=== PATIENT | male | born 1950 | race Caucasian/White ===

== ENCOUNTER → 2016-07-26 | Outpatient (CLI) | payer OTHER ==
[~2016-07-26] MED LIST: ASPI81TA25 PO; COEN1CAP40 PO; CRG25 PO; DIPH1CAP34 PO; FELO10TA PO; FERR1TAB13 PO; FERR324T PO; GABA-113 PO; HYDR25TA4 PO; INSDGI SC; LISI40TA PO; LPT/40 PO; NVLGI SC; OMEP20TA PO; OXYC-57 PO; ULT/50 PO
--- NOTE | 2016-07-26 10:15 | DIAGNOSTIC IMAGING REPORT ---
LUMBAR SPINE MRI WITH AND WITHOUT CONTRAST HISTORY: MRI lumbar spine LUMBAR SPINE PAIN TECHNIQUE: Multiplanar multisequence MRI of the lumbar spine was performed both before and after the intravenous administration of contrast. COMPARISON: None. FINDINGS: For the purpose of the report the L5-S1 disc space will be located on axial image 27 of 30. Moderate degenerative intervertebral disc change throughout the entire lumbar region. Mild reactive edematous change of the vertebral endplates on a degenerative basis. Posterior extradural defects from L3 through S1 based on the sagittal images. No abnormal postcontrast sagittal enhancing focus. L1-L2: No significant central canal or neural foraminal narrowing. L2-L3: No significant central canal or neural foraminal narrowing. L3-L4: Moderate broad-based disc herniation. Moderate impact anterior thecal sac. Moderate multifactorial narrowing of the spinal canal. Mild narrowing of the neuroforamina bilaterally. L4-L5: Broad-based disc herniation. Moderate multifactorial narrowing of the spinal canal. Mild narrowing of the neuroforamina bilaterally. L5-S1: Prior posterior left hemilaminotomy.. Left posterior extradural defect significant components of which show evidence for postcontrast enhancement. This consistent with that of postoperative scarring. Mild narrowing neuroforamina bilaterally. IMPRESSION: 1. Postoperative changes L5-S1 consistent with a prior left hemilaminotomy. 2. Postoperative scar occupying the left lateral recess as well as anterior to the left thecal sac 3. Multifactorial spinal stenosis L3-L4 and to lesser extent L4-L5. Broad-based disc herniations are noted at both levels. 4. Moderate degenerative intervertebral disc change L3-S1 Electronically signed by: Dimas Ross M.D. 07/26/2016 10:14 AM Dictated Date/Time: 07/26/2016 10:08 AM
== END | disposition home or self-care (01) ==
LOC: C.MRI 08:15
PROVIDERS: ATTEND Orthopaedic Surgery Orthopaedic Surgery of the Spine
DX: M54.5 Low back pain (principal); Z98.890 Other specified postprocedural states; M51.37 Other intervertebral disc degeneration, lumbosacral region

== ENCOUNTER 2016-08-10 05:29 | Inpatient (IN) | payer OTHER ==
[2016-07-26 10:16] VITALS: BMI 39.0
--- NOTE | 2016-07-26 11:08 | PAT Medication Instructions ---
Service Date Jul 26, 2016. Current Home Medication List Aspirin (Aspir-Low), 81 MG PO QAM Atorvastatin (Lipitor), 40 MG PO QPM Carvedilol (Carvedilol), 1 TAB PO BID Coenzyme Q10 (Ubidecarenone) (Co Q-10), 400 MG PO QAM Felodipine (Plendil Er), 10 MG PO QAM Ferrous Sulfate (Kp Ferrous Sulfate), 1 TAB PO QAM Gabapentin (Neurontin), 3 TAB PO HS Hydrochlorothiazide (Hctz), 25 MG PO QAM Insulin Aspart (Novolog), UNITS SC TID Insulin Glargine (Lantus), 60 UNITS SC HS Lisinopril (Zestril), 40 MG PO QPM Omeprazole (Omeprazole), 20 MG PO QPM Tramadol Hcl (Ultram), 50-100 MG PO Q6H PRN Medication Instructions For Your Scheduled Surgery - Check with surgeon for instructions: Aspirin (Aspir-Low), 81 MG PO QAM - Hold the following medications 2 weeks prior to surgery: Coenzyme Q10 (Ubidecarenone) (Co Q-10), 400 MG PO QAM - Hold the following medications the morning of surgery: Insulin Aspart (Novolog), UNITS SC TID Hydrochlorothiazide (Hctz), 25 MG PO QAM Ferrous Sulfate (Kp Ferrous Sulfate), 1 TAB PO QAM - Take the following medications the morning of surgery with a sip of water: Felodipine (Plendil Er), 10 MG PO QAM Carvedilol (Carvedilol), 1 TAB PO BID Tramadol Hcl (Ultram), 50-100 MG PO Q6H PRN (check with surgeon for instructions ) - Hold the following medications as scheduled the night before surgery: Lisinopril (Zestril), 40 MG PO QPM - Take the following medications as scheduled the night before surgery: Omeprazole (Omeprazole), 20 MG PO QPM Insulin Glargine (Lantus), 60 UNITS SC HS Insulin Aspart (Novolog), UNITS SC TID Gabapentin (Neurontin), 3 TAB PO HS Carvedilol (Carvedilol), 1 TAB PO BID Atorvastatin (Lipitor), 40 MG PO QPM Tramadol Hcl (Ultram), 50-100 MG PO Q6H PRN If you have any questions please call us at [phone] (Latesha White PA-C) or [phone] or [phone]
[2016-07-26 11:48] LABS: BASO % 0.2 %; BASO ABS # 0.01 K/uL (0-0.2); COMPLETE YES; EOS % 1.7 %; IG% 0.2 %; LYMPH % 16.5 %; MEAN CELL VOLUME 88.1 fL (80-100); MEAN CORPUSCULAR HEMOGLOBIN 30.2 pg (25-34); MEAN CORPUSCULAR HGB CONC 34.3 g/dl (32-36); MEAN PLATELET VOLUME 11.3 fL (7.4-10.4); MONO % 6.2 %; NEUT % 75.2 %; PLATELET COUNT 180 K/uL (130-400); WHITE BLOOD COUNT 6.65 K/uL (4.8-10.8)
[2016-07-26 12:01] LABS: URINE APPEARANCE CLEAR (CLEAR); URINE BILIRUBIN NEG (NEG); URINE COLOR YELLOW; URINE NITRITE NEG (NEG); URINE SPECIFIC GRAVITY 1.011 (1.000-1.030); UROBILINOGEN NEG (NEG)
[2016-07-26 12:06] LABS: BUN/CREATININE RATIO 22.3 (10-20); CALCIUM 9.4 mg/dl (8.5-10.1); POTASSIUM 4.1 mmol/L (3.5-5.1)
[2016-07-26 12:17] LABS: MANUAL MICROSCOPIC REQUIRED? NO; REVIEW REQ? NO
--- NOTE | 2016-07-26 12:36 | DIAGNOSTIC IMAGING REPORT ---
TWO VIEW CHEST CLINICAL HISTORY: Preoperative examination. FINDINGS: PA and lateral chest radiographs are compared to study dated 12/09/2012. The cardiomediastinal silhouette is unremarkable. Chronic interstitial thickening is unchanged. The lungs and pleural spaces are clear. There is no pneumothorax. The bony thorax appears intact. Fusion hardware is noted in the lower cervical spine. IMPRESSION: No active disease in the chest. Electronically signed by: Brandyn Romero M.D. 07/26/2016 12:35 PM Dictated Date/Time: 07/26/2016 12:34 PM
[~2016-08-10] VITALS: Ht 172.7 cm; Wt 117.9 kg
[2016-08-10] VITALS (9 sets, daily range): BP systolic 134–193; BP diastolic 70–90; PULSE 67–87; TEMP 36.3–36.7; O2SAT 90–98; Ht 172.7 cm; Wt 117.9 kg
[~2016-08-10 05:29] MED LIST changes: -DIPH1CAP34 PO; -FERR324T PO; -OXYC-57 PO
[2016-08-10] MEDS ORDERED: PREGABALIN 75 MG CAP PO SCH (06:00)
[2016-08-10] MEDS ORDERED: CEFAZOLIN 2000 MG/60 ML D5W IV SCH (06:00)
[2016-08-10] MEDS ORDERED: LACTATED RINGER'S 1000ML 1,000 ML IV SCH (06:00)
[2016-08-10] MEDS ORDERED: CeleBREX 200 MG CAP PO SCH (06:00)
[2016-08-10] MEDS ORDERED: THROMBIN 5000 UNITS KIT ONE (06:57)
[2016-08-10] MEDS ORDERED: THROMBIN FOR SOLN 20000 UNIT KIT ONE ×2 (06:57→07:06)
[2016-08-10] MEDS ORDERED: BUPIVACAINE/EPINEPHRINE 0.5% MPF 1:200,000 30 ML VIAL ONE (06:57)
[2016-08-10] MEDS ORDERED: HEPARIN SOD (PORCINE) 1000 UNIT/ML 10 ML VIAL ONE ×2 (06:57→07:07)
[2016-08-10] MEDS ORDERED: BACITRACIN 50000 UNIT VIAL ONE (06:57)
[2016-08-10] MEDS ORDERED: LARYING-O-JET KIT (LTA) EXT ONE ×2 (06:58)
[2016-08-10] MEDS ORDERED: PROPOFOL IV EMULSION 10 MG/ML 20 ML VIAL IV ONE (06:58)
[2016-08-10] MEDS ORDERED: ONDANSETRON INJ 2 MG/ML 2 ML VIAL ONE (06:58)
[2016-08-10] MEDS ORDERED: DEXAMETHASONE SOD INJ 4 MG/ML VIAL ONE (06:58)
[2016-08-10] MEDS ORDERED: LIDOCAINE HCL 2% 2 ML VIAL (20MG/ML) ONE (06:58)
[2016-08-10] MEDS ORDERED: MIDAZOLAM HCL 1 MG/ML 2ML VIAL ONE (06:59)
[2016-08-10] MEDS ORDERED: FENTANYL CITRATE INJ 50 MCG/1 ML 2 ML VIAL ONE (06:59)
--- NOTE | 2016-08-10 07:14 | History and Physical ---
History & Physical Date Aug 10, 2016. Chief Complaint LBP and bilateral leg pain History of Present Illness The patient is a 66 year old male with complaints of above due to spinal stenosis and DDD in lumbar spine. He has had prior lumbar decompressions with limited relief in past. No numbness, no weakness. failed to have lasting relief with conservative treatment. MRI shows advanced disc collapse with modic changes L3-S1 and spinal stenosis/facet djd L3-S1. Past Medical/Surgical History Medical Problems: (1) HYPERLIPIDEMIA NEC/NOS (2) HYPERTENSION NOS 3, back pain 4, diabetes 5, hiatal hernia Additional History Hepatic Disease: No Endocrine Disorder: No Kidney Disease: No Hypertension: Yes Heart Disease: No Bleeding Tendencies: No Infectious Diseases: No Allergies Coded Allergies: No Known Allergies (Verified , 08/10/16) Home Medications Scheduled Aspirin (Aspir-Low), 81 MG PO QAM Atorvastatin (Lipitor), 40 MG PO QPM Carvedilol (Carvedilol), 1 TAB PO BID Coenzyme Q10 (Ubidecarenone) (Co Q-10), 400 MG PO QAM Felodipine (Plendil Er), 10 MG PO QAM Ferrous Sulfate (Kp Ferrous Sulfate), 1 TAB PO QAM Gabapentin (Neurontin), 3 TAB PO HS Hydrochlorothiazide (Hctz), 25 MG PO QAM Insulin Aspart (Novolog), UNITS SC TID Insulin Glargine (Lantus), 60 UNITS SC HS Lisinopril (Zestril), 40 MG PO QPM Omeprazole (Omeprazole), 20 MG PO QPM Scheduled PRN Tramadol Hcl (Ultram), 50-100 MG PO Q6H PRN Physical Examination Skin: warm/dry Eyes: normal inspection ENT: normal ENT inspection Head: normocephalic, atraumatic Neck: supple, trachea midline Respiratory/Chest: lungs clear, no respiratory distress Cardiovascular: regular rate, rhythm Back: normal inspection Extremities: normal inspection, normal range of motion Neurologic/Psych: no motor/sensory deficits, alert, normal reflexes, oriented x 3 Diagnosis L3-S1 stenosis/DDD Plan of Treatment L3-S1 decompression/PSF
[2016-08-10] MEDS ORDERED: HYDROmorphone INJ 2 MG/ML SYR/VIAL ONE (07:40)
[2016-08-10] MEDS ORDERED: ROCURONIUM BROMIDE 10 MG/ML 5 ML VIAL ONE (07:52)
[2016-08-10] MEDS ORDERED: ATROPINE SULFATE 0.1 MG/ML 5ML SYR IV PRN (08:00)
[2016-08-10] MEDS ORDERED: ONDANSETRON INJ 2 MG/ML 2 ML VIAL IV PRN ×2 (08:00→10:00)
[2016-08-10] MEDS ORDERED: HYDROmorphone INJ 1 MG/ML SYR IV PRN (08:00)
[2016-08-10] MEDS ORDERED: EpHEDrine SULFATE INJ 50 MG/ML AMP IV PRN (08:00)
[2016-08-10] MEDS ORDERED: PROMETHAZINE HCL INJ 6.25 MG in SODIUM CHLORIDE 0.9% 50ML 50 ML IV PRN (08:00)
[2016-08-10] MEDS ORDERED: EpHEDrine SULFATE 50MG/5ML SYR ONE (08:10)
[2016-08-10] MEDS ORDERED: KETAMINE HCL INJ 50 MG/ML 10 ML VIAL ONE (08:44)
[2016-08-10] MEDS ORDERED: NEOSTIGMINE METHYLSULFATE 1 MG/ML 10ML VIAL ONE (09:30)
[2016-08-10] MEDS ORDERED: GLYCOPYRROLATE INJ 0.2 MG/ML VIAL ONE (09:30)
[2016-08-10] MEDS ORDERED: FLOSEAL HEMOSTATIC MATRIX 10ML TOP ONE (09:36)
[2016-08-10] MEDS ORDERED: OXYC-57 PO (09:36)
--- NOTE | 2016-08-10 09:38 | Discharge Instructions ---
Discharge Instructions Admission Reason for Admission: Lumbar Spinal Stenosis Discharge Discharge Diagnosis / Problem: Lumbar Stenosis Discharge Goals Goal(s): Decrease discomfort, Improve function, Increase independence Activity Recommendations Activity Limitations: as noted below Lifting Limitations: no more than 5 pounds Exercise/Sports Limitations: none May Resume Sexual Activity: after follow-up appointment Shower/Bathe: may shower/bathe in 3 days . Instructions / Follow-Up Instructions / Follow-Up ACTIVITY RECOMMENDATIONS: SELF CARE INSTRUCTIONS AFTER THORACIC/LUMBAR FUSIONS 1. You may walk to your tolerance. It is good exercise for your legs and back. Expect some back and intermittent leg aches and pains. 2. You may perform "counter-top" level activities (make a sandwich, rory with a project, etc.). 3. No bending or lifting of more than 10 pounds or back twisting of any nature (roll like a log when turning in bed). 4. You may ride in a car for 20-30 minutes at a time. No driving until after your first visit with your doctor. 5. Frequent changes of position and restricting sitting to 30 minutes at a time will help limit the amount of back spasms and stiffness you may experience. 6. You may discontinue the use of ambulatory aids (cane, crutches, etc.) once your strength and confidence allow. 7. You may metalizing machine operator automatic the shower and let water strike your incision when you arrive home at least once daily. Do not take a tub bath, sit in a hot tub or go into a swimming pool until after your first recheck in the office. SPECIAL CARE INSTRUCTIONS: VERY IMPORTANT TO READ AND REVIEW A. Your surgical incision has been closed with a cosmetic suture under the skin that will dissolve in about 6 weeks. In 14 days, you can use a pair of clean scissors and cut the suture that is left outside of the skin at the ends of your incision. 1. The small skin tapes can be removed 7 days after surgery if they have not fallen off by that point. 2. You may keep the wound open to air as much as possible to promote healing after post-op day number 5 unless told otherwise by your doctor. 3. If you think the wound looks like it is becoming infected (redness or worsening drainage) and/or you are experiencing fever, chill or worsening back pain and muscle spasms, contact the office so that we may evaluate you as soon as possible. B. Complications are uncommon, but please contact us if you have any signs or symptoms of: 1. wound infection (fever higher than 102.5 degrees F, redness, separation of wound, drainage, or increasing pain from the incision) 2. blood clots in legs (pain, swelling, redness and warmth in legs) 3. urinary tract infection (fever higher than 102.5 degrees F, burning upon urination or increased frequency of urination) 4. nerve problems (inability to walk on your toes or heels, numbness, loss of bowel or bladder control) 5. any other symptoms that concern you C. Please call the office at if you have any concerns or questions about your operation or recovery. D. No smoking! Smoking drastically decreases the chance of a solid fusion. E. Do not take any anti-inflammatory medications (Indocin, Advil, Motrin, Aspirin, Naprosyn, etc.) as these may inhibit the chance of a solid fusion. Tylenol is okay to take for pain. MANAGING PAIN AFTER SPINAL SURGERY 1. Narcotic medication is intended for short-term use and will be provided for surgical pain. Surgical pain usually lasts for a period of 4-6 weeks. Narcotic medication includes Percocet, Vicodin, Darvocet, Tylenol #3 or Lortab. 2. Longer-term pain is more appropriately treated with non-narcotic medication such as Tylenol ES. 3. Muscle spasm is not appropriately treated with narcotics. Muscle relaxers such as Soma, Flexeril or Skelaxin can be used along with Tylenol ES. 4. Remember that we all live with some "aches and pains". This is not unusual or uncommon after an injury or as we get older. a. Back pain is expected and may include muscle spasms for 4 to 6 weeks after surgery. The pain should gradually improve. If the pain worsens for no apparent reason, please contact the office. b. Intermittent leg pain may also be experienced and should not be concerned about unless it worsens for no apparent reason. If so, please contact the office. 5. We will provide appropriate medication within the normal guidelines of their prescribed use. We will also be very cautious and aware of potential abuse and extended duration of patients' medication needs. a. Pain medications are for your comfort and to assist with sleep and rest so that the tissue can heal. They are not provided in order to return to normal activity and should not be used through the day. To do so or worsening pain at night can result from ongoing tissue damage and development of tolerance to the prescribed medicine. 6. Please allow 2-3 days to process refills. Prescriptions will not be mailed but must be picked up at the office. FOLLOW UP VISIT: Keep your scheduled follow-up appointment. Any questions, please call the office at . Current Hospital Diet Patient's current hospital diet: Discharge Diet Recommended Diet: Regular Diet Procedures Procedures Performed: L3-S1 Decompression and Instrumented Fusion; Interbody Fusion at L4-L5; with Arteriocyte Pending Studies Studies pending at discharge: no Medical Emergencies . Who to Call and When: Medical Emergencies: If at any time you feel your situation is an emergency, please call 911 immediately. . Non-Emergent Contact Non-Emergency issues call your: Surgeon Call Non-Emergent contact if: temperature is above 101, your pain is not controlled, your pain is worsening, your pain is unusual for you, your pain is concerning you, wound has increased drainage, wound has increased redness, wound has increased pain, you have any medication questions . "Provider Documentation" section prepared by Christos Kimball. VTE Core Measure Inpt VTE Proph given/why not?: Anand Smith
--- NOTE | 2016-08-10 09:41 | DIAGNOSTIC IMAGING REPORT ---
LUMBAR SPINE, INTRAOPERATIVE FLUOROSCOPY HISTORY: L3-S1 decompression and fusion. FLUOROSCOPY TIME: 9 seconds. FINDINGS: Intraoperative fluoroscopy was provided for the lumbar spine. 2 fluoroscopic spot images were obtained. Posterior decompression fusion from L3 through S1 with pedicle screws and rods. The hardware appears intact. IMPRESSION: Fluoroscopy provided for a L3-S1 posterior decompression and fusion. Electronically signed by: Todd Galloway M.D. 08/10/2016 9:40 AM Dictated Date/Time: 08/10/2016 9:39 AM
--- NOTE | 2016-08-10 09:47 | [facility] Post Operative Brief Note ---
Immediate Operative Summary Operative Date Aug 10, 2016. Pre-Operative Diagnosis L3-S1 Stenosis, Degenerative Joint Disease Post-Operative Diagnosis L3-S1 Stenosis, Degenerative Joint Disease Procedure(s) Performed L3-S1 Decompression and Instrumented Fusion; Interbody Fusion at L4-L5; with Arteriocyte Surgeon Dr. Loeksh Keene Fare Register Repairer Surgeon(s) Christos Kimball PA-C Estimated Blood Loss 300mL Findings dict Specimens None per surgeon
[2016-08-10] MEDS ORDERED: HYDROmorphone HCL 0.5MG/ML 50 ML CASSETTE ONE (09:53)
[2016-08-10] MEDS ORDERED: BISACODYL 10 MG SUPP PR PRN (10:00)
[2016-08-10] MEDS ORDERED: HYDROmorphone INJ 0.5 MG/0.5 ML SYR IV PRN (10:00)
[2016-08-10] MEDS ORDERED: LORAZEPAM 0.5 MG TAB PO PRN (10:00)
[2016-08-10] MEDS ORDERED: PROMETHAZINE HCL INJ 12.5 MG in SODIUM CHLORIDE 0.9% 50ML 50 ML IV PRN (10:00)
[2016-08-10] MEDS ORDERED: LORAZEPAM INJ 0.5 MG in SYRINGE 0 ML IV PRN (10:00)
[2016-08-10] MEDS ORDERED: ACETAMINOPHEN IV 100 ML IV PRN (10:00)
[2016-08-10] MEDS ORDERED: METOCLOPRAMIDE HCL INJ 5 MG/ML 2 ML VIAL IV PRN (10:00)
[2016-08-10] MEDS ORDERED: NALOXONE HCL 0.4 MG/1 ML VIAL/CARP IV PRN ×2 (10:00)
[2016-08-10] MEDS ORDERED: ALUMINUM/MAGNESIUM SUSP 30 ML UDC PO PRN (10:00)
[2016-08-10] MEDS ORDERED: ACETAMINOPHEN 500 MG TAB PO PRN (10:00)
[2016-08-10] MEDS ORDERED: hydrOXYzine HCL 25 MG TAB PO PRN (10:00)
[2016-08-10] MEDS ORDERED: FAMOTIDINE 20 MG TAB PO PRN (10:00)
[2016-08-10] MEDS ORDERED: SOD PHOSPHATE/SOD BIPHOSPHATE ENEMA 132 ML BTL PR PRN (10:00)
[2016-08-10] MEDS: FENTANYL CITRATE INJ 50 MCG/1 ML 2 ML VIAL IV PRN ×4 (10:10→10:25)
--- NOTE | 2016-08-10 11:01 | Anesthesiology Progress Note ---
Anesthesia Post Op Note Date & Time Aug 10, 2016 at 11:01 Vital Signs Pain Intensity: 3 Vital Signs Past 12 Hours Date Time Temp Pulse Resp B/P Pulse Ox O2 Delivery O2 Flow Rate FiO2 08/10/16 10:45 68 12 178/73 98 Nasal Cannula 4 08/10/16 10:35 64 16 161/72 97 Nasal Cannula 4 08/10/16 10:25 62 16 173/77 97 Nasal Cannula 4 08/10/16 10:15 77 16 174/73 98 Nasal Cannula 4 08/10/16 10:05 74 16 180/76 100 Mask 10 08/10/16 09:55 76 16 186/65 100 Mask 10 08/10/16 09:47 36.4 83 16 175/80 99 Mask 10 08/10/16 06:08 36.7 68 18 177/85 98 Room Air Notes Mental Status: alert / awake / arousable, participated in evaluation Pt Amnestic to Procedure: Yes Nausea / Vomiting: adequately controlled Pain: adequately controlled Airway Patency, RR, SpO2: stable & adequate BP & HR: stable & adequate Hydration State: stable & adequate Anesthetic Complications: no major complications apparent
[2016-08-10] MEDS: HYDROmorphone HCL 0.5MG/ML 50 ML CASSETTE IV PRN ×3 (12:14→23:04)
[2016-08-10] MEDS: SODIUM CHLORIDE 0.9% 1000ML 1,000 ML IV SCH ×3 (12:55→23:10)
[2016-08-10] MEDS ORDERED: CARVEDILOL 25 MG TAB PO ONE (13:00)
[2016-08-10] MEDS ORDERED: HydrALAZINE HCL 20 MG/ML VIAL IV. PRN (13:00)
[2016-08-10] MEDS ORDERED: FELODIPINE 5 MG TABCR PO ONE (13:00)
--- NOTE | 2016-08-10 13:29 | Medical Consult ---
Consultation Date of Consultation: Aug 10, 2016. Attending Physician: Lokesh Keene M.D. Reason for Consultation: Postop Medical Management History of Present Illness Patient seen and examined. 66 year old male with PMHx of IDDM, HTN, HLD, RLS, and CKD stage 2, is seen in consultation for postop medical management following L3-S1 decompression fusion by Dr. Keene. Patient reports he feels groggy and nauseated. He states pain is well controlled. He denies fevers, chills, numbness/tingling, chest pain, SOB, vomiting, diarrhea, dysuria, calf pain and edema. He denies history of VTE. Last BM this morning. He denies eating postop. Past Medical/Surgical History Medical Problems: (1) Atrial premature beats Status: Chronic (2) CKD (chronic kidney disease), stage II Status: Chronic (3) GERD (gastroesophageal reflux disease) Status: Chronic (4) HYPERLIPIDEMIA NEC/NOS Status: Chronic (5) HYPERTENSION NOS Status: Chronic (6) IDDM (insulin dependent diabetes mellitus) Status: Chronic (7) Obesity Status: Chronic (8) RLS (restless legs syndrome) Status: Chronic Surgical Problems: (1) H/O neck surgery Status: Chronic (2) H/O shoulder surgery Status: Chronic (3) History of appendectomy Status: Chronic (4) History of back surgery Status: Chronic (5) History of intestinal surgery Status: Chronic Family History Diabetes mellitus FH: cancer FH: heart disease Hypertension Stroke Social History Smoking Status: Former Smoker Alcohol Use: none Marital Status: Housing Status: lives with family Occupation Status: retired Allergies Coded Allergies: No Known Allergies (Verified , 08/10/16) Current Inpatient Medications Current Inpatient Medications Medications (Trade) Dose Ordered Sig/Zarina Route Start Time Stop Time Status Last Admin Dose Admin Cefazolin Sodium 60 ml @ 100 mls/hr PREOP IV 08/10/16 06:00 08/10/16 18:00 Lactated Ringer's (Lr 1000ml) 1,000 ml @ 15 mls/hr Q24H IV 08/10/16 06:00 08/10/16 18:00 08/10/16 06:25 15 MLS/HR Celecoxib (CeleBREX CAP) 200 mg PREOP PO 08/10/16 06:00 08/10/16 18:00 08/10/16 06:23 200 MG Pregabalin (Lyrica Cap) 75 mg PREOP PO 08/10/16 06:00 08/10/16 18:00 08/10/16 06:23 75 MG Aspirin (Ecotrin Tab) 81 mg QAM PO 08/11/16 09:00 09/10/16 08:59 Atorvastatin Calcium (Lipitor Tab) 40 mg QPM PO 08/10/16 21:00 09/09/16 20:59 Carvedilol (Coreg Tab) 25 mg BID PO 08/10/16 21:00 09/09/16 20:59 Felodipine (Plendil Tabcr) 10 mg QAM PO 08/11/16 09:00 09/10/16 08:59 Gabapentin (Neurontin Cap) 900 mg HS PO 08/10/16 21:00 09/09/16 20:59 Hydrochlorothiazide (Hydrochlorothiazide Tab) 25 mg QAM PO 08/11/16 09:00 09/10/16 08:59 Lisinopril (Zestril Tab) 40 mg QPM PO 08/10/16 21:00 09/09/16 20:59 Pantoprazole Sodium 40 mg 40 mg DAILYBD PO 08/10/16 17:15 09/09/16 17:14 Promethazine HCl/ Sodium Chloride (Phenergan Inj/ Nss 50ml) 50.5 ml @ 202 mls/hr Q6H PRN IV 08/10/16 10:00 09/09/16 09:59 Ondansetron HCl (Zofran Inj) 4 mg Q6H PRN IV 08/10/16 10:00 09/09/16 09:59 Metoclopramide HCl (Reglan Inj) 10 mg Q6H PRN IV 08/10/16 10:00 09/09/16 09:59 Lorazepam 0.5 mg 0.5 mg Q8H PRN PO 08/10/16 10:00 09/09/16 09:59 Lorazepam 0.5 mg/ Syringe 0.25 ml @ 1 mls/min Q8H PRN IV 08/10/16 10:00 09/09/16 09:59 Sodium Chloride (Nss 1000ml) 1,000 ml @ 75 mls/hr [id number] IV 08/10/16 09:47 09/09/16 09:46 08/10/16 13:12 75 MLS/HR Polyethylene (Miralax Powder Packet) 17 gm Q6 PO 08/12/16 06:00 09/11/16 05:59 Bisacodyl (Dulcolax Supp) 10 mg DAILY PRN MN 08/10/16 10:00 09/09/16 09:59 Magnesium Hydroxide (Milk Of Magnesia Susp) 30 ml DAILY PRN PO 08/10/16 10:00 09/09/16 09:59 Hydromorphone HCl (Dilaudid Inj) 0.5-1mg prn moder... Q3H PRN IV 08/10/16 10:00 08/24/16 09:59 UNV Oxycodone HCl 5-10mg prn moderate to sev... Q4H PRN PO 08/11/16 06:00 08/25/16 05:59 UNV Cefazolin Sodium/ Dextrose (Ancef Iv/D5 50ml) 60 ml @ 100 mls/hr Q8H IV 08/10/16 16:00 08/11/16 00:35 Acetaminophen 1000 mg 1,000 mg Q8H PRN PO 08/10/16 10:00 09/09/16 09:59 Acetaminophen (Ofirmev Iv) 100 ml @ 400 mls/hr Q8H PRN IV 08/10/16 10:00 09/09/16 09:59 Naloxone HCl (Narcan Inj) 0.1 mg Q5M PRN IV 08/10/16 10:00 09/09/16 09:59 Senna/Docusate Sodium (Senokot S Tab) 2 tab HS PO 08/10/16 21:00 09/09/16 20:59 Sodium Biphosphate/ Sodium Phosphate (Fleet Enema) 132 ml ONE PRN MN 08/10/16 10:00 09/09/16 09:59 Hydroxyzine HCl (Vistaril Tab) 25 mg Q8H PRN PO 08/10/16 10:00 09/09/16 09:59 Al Hydroxide/Mg Hydroxide (Maalox Susp) 30 ml Q6H PRN PO 08/10/16 10:00 09/09/16 09:59 Famotidine (Pepcid Tab) 20 mg Q12 PRN PO 08/10/16 10:00 09/09/16 09:59 Naloxone HCl (Narcan Inj) 0.1 mg Q5M PRN IV 08/10/16 10:00 09/09/16 09:59 Hydromorphone HCl 25 mg 25 mg PRN PRN IV 08/10/16 10:00 08/24/16 09:59 08/10/16 12:14 25 MG Sodium Chloride (Nss 1000ml) 1,000 ml @ 15 mls/hr Q24H IV 08/10/16 09:47 09/09/16 09:46 Hydralazine HCl (HydrALAZINE INJ) 10 mg Q6 PRN IV. 08/10/16 13:00 09/09/16 12:59 Review of Systems See above for pertinent positives & negatives. A total of 10 systems reviewed and were otherwise negative. Physical Exam Date Time Temp Pulse Resp B/P Pulse Ox O2 Delivery O2 Flow Rate FiO2 08/10/16 12:52 36.3 67 16 185/72 96 Nasal Cannula 4.0 08/10/16 12:20 36.5 71 18 193/71 97 Nasal Cannula 4.0 08/10/16 12:20 Nasal Cannula 4.0 08/10/16 12:20 97 Nasal Cannula 4.0 08/10/16 11:55 36.5 88 16 165/70 99 Nasal Cannula 4 08/10/16 11:45 36.5 65 16 170/85 99 Nasal Cannula 4 08/10/16 11:35 36.5 65 12 168/69 99 Nasal Cannula 4 08/10/16 11:25 36.5 63 12 169/96 99 Nasal Cannula 4 08/10/16 11:15 36.5 81 12 166/97 98 Nasal Cannula 4 08/10/16 11:05 36.5 66 12 171/67 95 Nasal Cannula 4 08/10/16 10:55 68 12 168/89 98 Nasal Cannula 4 08/10/16 10:45 68 12 178/73 98 Nasal Cannula 4 08/10/16 10:35 64 16 161/72 97 Nasal Cannula 4 08/10/16 10:25 62 16 173/77 97 Nasal Cannula 4 08/10/16 10:15 77 16 174/73 98 Nasal Cannula 4 08/10/16 10:05 74 16 180/76 100 Mask 10 2/16/17 09:55 76 16 186/65 100 Mask 10 08/10/16 09:47 36.4 83 16 175/80 99 Mask 10 08/10/16 06:08 36.7 68 18 177/85 98 Room Air General Appearance: + pertinent finding (WD/WN 66 year old male lying in bed in NAD with family at bedside ) Head: normocephalic, atraumatic Eyes: PERRL, EOMI, sclerae normal ENT: hearing grossly normal, pharynx normal Neck: supple, no JVD Respiratory/Chest: chest non-tender, lungs clear, normal breath sounds, no respiratory distress, no accessory muscle use Cardiovascular: regular rate, rhythm, no edema, no gallop, no JVD, normal peripheral pulses, + systolic murmur Abdomen/GI: normal bowel sounds, non tender, soft Back: + pertinent finding (LUZ MARINA with serosaunginous output ) Extremities/Musculoskelatal: no calf tenderness, normal capillary refill, no pedal edema Neurologic/Psych: alert, oriented x 3, + pertinent finding (no motor or sensory deficits noted on gross exam ) Skin: normal color, warm/dry, no rash Lymphatic: no adenopathy Laboratory Results Last 24 Hours Test 08/10/16 05:55 08/10/16 09:47 Bedside Glucose 78 mg/dl 126 mg/dl Assessment & Plan L3-S1 DECOMPRESSION FUSION -POD#[address] Keene -Management as per ortho to include- pain control, bowel regimen, DVT prophylaxis, PT/OT, incentive spirometry, wound care -EBL 300ml -Follow H&H daily for postop anemia, preop was 12.7&37 -CBC, PRP, Mg daily HTN -Running slightly high postop -pain control per ortho -continue Plendil, HCTZ, Coreg, Lisinopril -Hydralazine added prn IDDM -A1c 6.8 -decrease Lantus to 30 Units tonight to avoid hypoglycemia with postop nausea, poor po intake -SSI coverage -BSG AC HS -consistent carb diet HLD -continue Statin RLS -continue gabapentin CKD STAGE 2 -stable -follow PRP -avoid nephrotoxic agents as able GERD -continue PPI DVT PROPHYLAXIS: per ortho CODE STATUS: FULL CODE DISPO per ortho Patient seen in collaboration with Dr. Navarro Thank you for this consultation. We will follow the patient with you during their hospital stay. You can reach a member of the [facility] Hospitalist Team 15/01 via pager @ [phone]. Agree with above Consult note.Briefly 66m s/p back surgery. Was nauseous early but feeling ok now. Using access specialist pump for pain. Denies chest pain or sob. Afebrile.Had dinner. p/e Ge not in distress cvs s1 and s2 heard no murmurs Rs cta b/l no added sounds Abd benign Cushion Former non focal musculoskeletal s/p back surgery ext no edema a/p s/p back surgery management as per ortho HTN home meds iv hydralazine prn DM reduced Lantus today restart home Lantus dose tomorrow iss will monitor
[2016-08-10] MEDS ORDERED: GLUCAGON FOR INJ 1 MG VIAL SQ PRN (13:30)
[2016-08-10] MEDS ORDERED: DEXTROSE 50% 50 ML SYR IV PRN (13:30)
[2016-08-10] MEDS ORDERED: GLUCOSE 10 TABS/TUBE PO PRN (13:30)
[2016-08-10] MEDS ORDERED: GLUCOSE 40% GEL 15 GM TUBE PO PRN (13:30)
--- NOTE | 2016-08-10 15:12 | OPERATIVE REPORT ---
DATE OF OPERATION: 08/10/2016 PREOPERATIVE DIAGNOSES: 1. L3-4, L4-5 and L5-S1 spinal stenosis and disc degeneration. 2. Previous L5-S1 decompression x2. POSTOPERATIVE DIAGNOSES: Same. PROCEDURES: 1. L3 and L4 laminectomies with bilateral L3-4 and L4-5 medial facetectomies. 2. Segmental pedicle screw instrumentation -- bilateral L3, L4, and unilateral screw placement at L5 on the left. Bilateral screw placement at S1. 3. Posterior lateral fusion L3-S1 -- bilateral with Infuse BMP on a collagen sponge, tricalcium phosphate, local bone, bone putty and bone marrow aspirate. 4. Right iliac crest bone marrow aspiration stem cell concentration with Arteriocyte system with application of bone graft gas plant repairer. SURGEON: Dr. Keene. DIRECTOR INDUSTRIAL MUSEUM: Christos Kimball PA-C. Please note he participated in all portions of the procedure and was critical for performance of the procedure, participated in positioning, prepping, draping, retraction and wound closure. ANESTHESIA: General endotracheal anesthesia. COMPLICATIONS: None. ESTIMATED BLOOD LOSS: Per anesthesia record. DESCRIPTION OF PROCEDURE: After identification of the patient and operative level, he was brought to the OR where he underwent induction of general anesthesia. He was then positioned prone on David OR table with all bony prominences well padded. Care was taken to avoid pressure on the periorbital area. Lumbosacral area was sterilely prepped and draped in usual fashion. Antibiotics were administered. Time-out was performed. Level was confirmed and skin incision was infiltrated with Marcaine and epinephrine. I then made a skin incision from spinous process of L2 to the sacrum and exposed the posterior elements at previous surgical site and confirmed level with fluoroscopy and marked the operative levels. The L5-S1 facets were autofused and the disc was autofused on fluoroscopy. I then did L3 and L4 laminectomies with midline decompression and removal of ligamentum flavum and medial facets at L3-4 and L4-5. I completed decompression with Kerrisons and palpated the nerve roots were decompressed from L3-5 bilaterally. I then placed pedicle screws bilaterally at L3, L4, on the left at L5 and bilaterally at S1 with K2M Schleswig pedicle screws. Screws had good purchase. I checked position with fluoroscopy. I then aspirated bone marrow from the right iliac crest via separate stab incision with a Avancar needles concentrated with the bone marrow concentration system. I then applied bone graft gas plant repairer and decorticated transverse process and facets from L3 to the sacrum bilaterally. I applied rods and end caps from L3-S1 bilaterally. Placed and final tightened all placed crosslink. Decortication of the bone was done with a high speed bur. I then packed the lateral gutters with bone graft mixture as above after irrigating with bacitracin solution and bone graft mixed with morcellized local bone, bone putty, bone marrow aspirate and Infuse BMP on a collagen sponge. I then confirmed hemostasis and closed in layered fashion over LUZ MARINA drain. All sponge and needle counts were correct at the end of the case. I attest to the content of the Intraoperative Record and any orders documented therein. Any exceptio ns are noted below.
[2016-08-10] MEDS: CEFAZOLIN IV 2,000 MG in DEXTROSE 5% 50ML 50 ML IV SCH (16:22)
[2016-08-10] MEDS: PANTOprazole SOD 40 MG TAB PO SCH (18:42)
[2016-08-10] MEDS: INSULIN ASPART 100 UNITS/ML 3 ML PEN SC SCH ×2 (18:43→22:00)
[2016-08-10] MEDS ORDERED: INSULIN GLARGINE SOLOSTAR 100 UNITS/ML 3 ML PEN SC SCH (21:00)
[2016-08-10] MEDS: DOCUSATE SODIUM/SENNA 50/8.6MG TAB PO SCH (21:51)
[2016-08-10] MEDS: CARVEDILOL 25 MG TAB PO SCH (21:52)
[2016-08-10] MEDS: ATORVASTATIN 40 MG TAB PO SCH (21:52)
[2016-08-10] MEDS: GABAPENTIN 300 MG CAP PO SCH (21:52)
[2016-08-10] MEDS: LISINOPRIL 40 MG TAB PO SCH (21:52)
[2016-08-10] MEDS: INSULIN GLARGINE SOLOSTAR 100 UNITS/ML 3 ML PEN SC SCH (22:02)
[2016-08-11] VITALS (9 sets, daily range): BP systolic 119–194; BP diastolic 63–71; PULSE 73–93; TEMP 36.7–37.4; O2SAT 90–95
[2016-08-11] MEDS: CEFAZOLIN IV 2,000 MG in DEXTROSE 5% 50ML 50 ML IV SCH (00:02)
[2016-08-11] MEDS: MAGNESIUM HYDROXIDE SUSP 30 ML UDC PO PRN ×2 (04:41→15:40)
[2016-08-11] MEDS: HYDROmorphone HCL 0.5MG/ML 50 ML CASSETTE IV PRN ×2 (07:14→23:11)
[2016-08-11 08:11] LABS: BASO % 0.1 %; BASO ABS # 0.01 K/uL (0-0.2); COMPLETE YES; EOS % 0.2 %; HEMATOCRIT 29.8 % (42-52); IG% 0.2 %; LYMPH % 7.9 %; LYMPH ABS # 0.84 K/uL (1.2-3.4); MEAN CELL VOLUME 89.5 fL (80-100); MEAN CORPUSCULAR HEMOGLOBIN 29.7 pg (25-34); MEAN CORPUSCULAR HGB CONC 33.2 g/dl (32-36); MEAN PLATELET VOLUME 10.7 fL (7.4-10.4); NEUT % 81.6 %; PLATELET COUNT 140 K/uL (130-400); RED BLOOD COUNT 3.33 M/uL (4.7-6.1); WHITE BLOOD COUNT 10.63 K/uL (4.8-10.8)
--- NOTE | 2016-08-11 08:31 | Anesthesiology Progress Note ---
Anesthesia Post Op Note Date & Time Aug 11, 2016 at 08:30 Vital Signs Pain Intensity: 0.0 Vital Signs Past 12 Hours Date Time Temp Pulse Resp B/P Pulse Ox O2 Delivery O2 Flow Rate FiO2 08/11/16 06:52 37.0 77 17 154/65 92 Room Air 08/11/16 04:00 36.7 73 18 119/63 95 Room Air 08/10/16 23:55 Room Air 08/10/16 23:50 36.6 80 18 134/70 92 Room Air Notes Mental Status: alert / awake / arousable, participated in evaluation Pt Amnestic to Procedure: Yes Nausea / Vomiting: adequately controlled Pain: adequately controlled Airway Patency, RR, SpO2: stable & adequate BP & HR: stable & adequate Hydration State: stable & adequate Anesthetic Complications: no major complications apparent
[2016-08-11 08:49] LABS: BUN/CREATININE RATIO 25.1 (10-20); CALCIUM 8.2 mg/dl (8.5-10.1); CREATININE 1.3 mg/dl (0.60-1.40); POTASSIUM 4.7 mmol/L (3.5-5.1)
[2016-08-11] MEDS: ASPIRIN 81 MG ECTAB PO SCH (09:05)
[2016-08-11] MEDS: CARVEDILOL 25 MG TAB PO SCH ×2 (09:06→20:15)
[2016-08-11] MEDS: FELODIPINE 5 MG TABCR PO SCH (09:06)
[2016-08-11] MEDS: HYDROCHLOROTHIAZIDE 25 MG TAB PO SCH (09:06)
[2016-08-11] MEDS: SODIUM CHLORIDE 0.9% 1000ML 1,000 ML IV SCH ×2 (09:07→12:37)
[2016-08-11] MEDS: INSULIN ASPART 100 UNITS/ML 3 ML PEN SC SCH ×4 (09:16→21:07)
--- NOTE | 2016-08-11 15:27 | Progress Note ---
Internal Med Progress Note Date of Service: Aug 11, 2016. Provider Documentation: SUBJECTIVE: Patient is seen and examined at bedside. Denies any chest pain, SOB, dizziness , headache. States that he had not had a BM today. OBJECTIVE: Vital Signs-as noted below General Appearance:Obese, No distress Head: normocephalic, atraumatic Eyes: PERRL, EOMI, sclerae normal ENT: hearing grossly normal, pharynx normal Neck: supple, no JVD Respiratory/Chest: normal breath sounds, CTA, no accessory muscle use Cardiovascular: S1, S2, + systolic murmur Abdomen/GI: normal bowel sounds, non tender, soft Back: + LUZ MARINA and surgical site in bandage Extremities/Musculoskelatal: no calf tenderness, normal capillary refill, no pedal edema Neurologic/Psych: alert, oriented x 3, no motor or sensory deficits Skin: normal color, warm/dry, no rash Lab data as noted below. ASSESSMENT & PLAN: S/P L3-S1 DECOMPRESSION FUSION POD # [address] Keene Hb 9.9 today: Partly likely hemodilutional Monitor H&H Bowel regimen to prevent constipation HTN continue Plendil, HCTZ, Coreg, Lisinopril Hydralazine PRN DC IVF Monitor for now IDDM Last A1c 6.8 -Continue SSI coverage, Lantus BSG AC HS Diabetic diet HLD continue Statin RLS continue gabapentin CKD II stable Monitor GERD continue PPI DVT PX: per ortho CODE STATUS FULL CODE Vital Signs: Date Time Temp Pulse Resp B/P Pulse Ox O2 Delivery O2 Flow Rate FiO2 08/11/16 11:03 37.1 81 17 167/66 95 Room Air 08/11/16 06:52 37.0 77 17 154/65 92 Room Air 08/11/16 04:00 36.7 73 18 119/63 95 Room Air 08/10/16 23:55 Room Air 08/10/16 23:50 36.6 80 18 134/70 92 Room Air 08/10/16 19:11 36.6 87 18 164/73 97 Nasal Cannula 3.0 Lab Results: Results Past 24 Hours Test 08/10/16 16:38 08/10/16 20:39 08/11/16 08:00 08/11/16 08:02 Range/Units Bedside Glucose 176 240 208 70-99 mg/dl White Blood Count 10.63 4.8-10.8 K/uL Red Blood Count 3.33 4.7-6.1 M/uL Hemoglobin 9.9 14.0-18.0 g/dL Hematocrit 29.8 42-52 % Mean Corpuscular Volume 89.5 80-100 fL Mean Corpuscular Hemoglobin 29.7 25-34 pg Mean Corpuscular Hemoglobin Concent 33.2 32-36 g/dl Platelet Count 140 130-400 K/uL Mean Platelet Volume 10.7 7.4-10.4 fL Neutrophils (%) (Auto) 81.6 % Lymphocytes (%) (Auto) 7.9 % Monocytes (%) (Auto) 10.0 % Eosinophils (%) (Auto) 0.2 % Basophils (%) (Auto) 0.1 % Neutrophils # (Auto) 8.68 1.4-6.5 K/uL Lymphocytes # (Auto) 0.84 1.2-3.4 K/uL Monocytes # (Auto) 1.06 0.11-0.59 K/uL Eosinophils # (Auto) 0.02 0-0.5 K/uL Basophils # (Auto) 0.01 0-0.2 K/uL RDW Standard Deviation 46.7 36.4-46.3 fL RDW Coefficient of Variation 14.2 11.5-14.5 % Immature Granulocyte % (Auto) 0.2 % Immature Granulocyte # (Auto) 0.02 0.00-0.02 K/uL Sodium Level 141 136-145 mmol/L Potassium Level 4.7 3.5-5.1 mmol/L Chloride Level 105 98-107 mmol/L Carbon Dioxide Level 27 21-32 mmol/L Anion Gap 9.0 3-11 mmol/L Blood Urea Nitrogen 33 7-18 mg/dl Creatinine 1.30 0.60-1.40 mg/dl Est Creatinine Clear Calc Drug Dose 69.7 ml/min Estimated GFR () 65.9 Estimated GFR (Non- 56.9 BUN/Creatinine Ratio 25.1 10-20 Random Glucose 214 70-99 mg/dl Calcium Level 8.2 8.5-10.1 mg/dl Test 08/11/16 11:27 Range/Units Bedside Glucose 260 70-99 mg/dl
[2016-08-11] MEDS: PANTOprazole SOD 40 MG TAB PO SCH (19:27)
[2016-08-11] MEDS: DOCUSATE SODIUM/SENNA 50/8.6MG TAB PO SCH (20:16)
[2016-08-11] MEDS: LISINOPRIL 40 MG TAB PO SCH (20:16)
[2016-08-11] MEDS: GABAPENTIN 300 MG CAP PO SCH (20:17)
[2016-08-11] MEDS: ATORVASTATIN 40 MG TAB PO SCH (20:17)
[2016-08-11] MEDS: INSULIN GLARGINE SOLOSTAR 100 UNITS/ML 3 ML PEN SC SCH (21:08)
[2016-08-12] MEDS ORDERED: NURSING VERBAL MED ORDER ONE (03:00)
[2016-08-12 03:25] VITALS: BP 157/74; PULSE 86; TEMP 36.8; O2SAT 90
[2016-08-12] MEDS: POLYETHYLENE (MIRALAX) 17 GM PACK PO SCH ×4 (05:41→23:32)
[2016-08-12] MEDS: HYDROmorphone HCL 0.5MG/ML 50 ML CASSETTE IV PRN ×3 (07:03→23:16)
[2016-08-12 07:21] LABS: HEMATOCRIT 29.4 % (42-52)
[2016-08-12] MEDS: SODIUM CHLORIDE 0.9% 1000ML 1,000 ML IV SCH (07:53)
[2016-08-12 08:00] VITALS: O2SAT 90
[2016-08-12] MEDS: ASPIRIN 81 MG ECTAB PO SCH (08:35)
[2016-08-12] MEDS: HYDROCHLOROTHIAZIDE 25 MG TAB PO SCH (08:35)
[2016-08-12] MEDS: FELODIPINE 5 MG TABCR PO SCH (08:36)
[2016-08-12] MEDS: CARVEDILOL 25 MG TAB PO SCH ×2 (08:36→21:37)
[2016-08-12] MEDS: INSULIN ASPART 100 UNITS/ML 3 ML PEN SC SCH ×4 (09:38→21:43)
--- NOTE | 2016-08-12 12:00 | Orthopedic Progress Note ---
Orthopedic Progress Note Date of Service Aug 12, 2016. Subjective Post OP Day: 2 Reports: feeling well, pain controlled w PO medications, Denies: SOB, calf pain , chest pain, complaints, light headedness, nausea / vomiting, using TRANSPORTATION SOLUTIONS MANAGER Objective calves soft nontender, N/V intact, dressing C/D/I, A&O x3, hemovac drainage Date Time Temp Pulse Resp B/P Pulse Ox O2 Delivery O2 Flow Rate FiO2 08/12/16 08:00 90 Room Air 08/12/16 03:25 36.8 86 16 157/74 90 Room Air 08/12/16 00:30 Room Air 08/11/16 23:00 36.8 93 16 170/71 91 Room Air 08/11/16 21:02 88 160/65 08/11/16 20:00 37.4 90 18 194/69 90 Room Air 08/11/16 16:30 93 Room Air 08/11/16 16:15 37.4 82 16 160/71 93 Room Air Laboratory Results 24 Hours: Test 08/12/16 06:55 Hematocrit 29.4 % Hemoglobin 9.9 g/dL Assessment & Plan Assessment: reports constipation, LBP at surgical site. Plan: suppository, d/c sunday? Discharge Planning Discharge Planning: home Pain Management: Oxy IR DVT Prophylaxis: TEDs, SCDs
[2016-08-12 15:46] VITALS: BP 153/68; PULSE 82; TEMP 36.8; O2SAT 92
[2016-08-12] MEDS ORDERED: HYDROCHLOROTHIAZIDE 25 MG TAB PO ONE (18:00)
--- NOTE | 2016-08-12 18:01 | Progress Note ---
Internal Med Progress Note Date of Service: Aug 12, 2016. Provider Documentation: SUBJECTIVE: Patient is seen and examined at bedside. States feeling very tired today. + flatus but no good BM yet. Denies any chest pain, SOB, dizziness, headache. Family at bedside. OBJECTIVE: Vital Signs-as noted below General Appearance:Obese, No distress Head: normocephalic, atraumatic Eyes: PERRL, EOMI, sclerae normal ENT: hearing grossly normal, pharynx normal Neck: supple, no JVD Respiratory/Chest: normal breath sounds, CTA, no accessory muscle use Cardiovascular: S1, S2, + systolic murmur Abdomen/GI: normal bowel sounds, non tender, soft Back: + LUZ MARINA and surgical site in bandage Extremities/Musculoskelatal: no calf tenderness, normal capillary refill, no pedal edema Neurologic/Psych: alert, oriented x 3, no motor or sensory deficits Skin: normal color, warm/dry, no rash Lab data as noted below. ASSESSMENT & PLAN: S/P L3-S1 DECOMPRESSION FUSION POD # [address] Keene Hb 9.9 today: Stable Monitor H&H Bowel regimen to prevent constipation HTN continue Plendil, HCTZ, Coreg, Lisinopril Hydralazine PRN BP still elevated, Will increase HCTZ to 50mg daily IDDM Last A1c 6.8 -Continue SSI coverage, Lantus BSG AC HS Diabetic diet HLD continue Statin RLS continue gabapentin CKD II stable Monitor GERD continue PPI DVT PX: per ortho CODE STATUS FULL CODE Vital Signs: Date Time Temp Pulse Resp B/P Pulse Ox O2 Delivery O2 Flow Rate FiO2 08/12/16 15:46 36.8 82 16 153/68 92 Room Air 08/12/16 08:00 90 Room Air 08/12/16 03:25 36.8 86 16 157/74 90 Room Air 08/12/16 00:30 Room Air 08/11/16 23:00 36.8 93 16 170/71 91 Room Air 08/11/16 21:02 88 160/65 08/11/16 20:00 37.4 90 18 194/69 90 Room Air Lab Results: Results Past 24 Hours Test 08/11/16 20:52 08/12/16 06:55 08/12/16 08:10 08/12/16 11:28 Range/Units Bedside Glucose 227 268 301 70-99 mg/dl Hemoglobin 9.9 14.0-18.0 g/dL Hematocrit 29.4 42-52 % Test 08/12/16 16:54 Range/Units Bedside Glucose 231 70-99 mg/dl
[2016-08-12] MEDS: PANTOprazole SOD 40 MG TAB PO SCH (18:38)
[2016-08-12 18:40] VITALS: BP 150/69; PULSE 88
[2016-08-12] MEDS: ATORVASTATIN 40 MG TAB PO SCH (21:37)
[2016-08-12] MEDS: GABAPENTIN 300 MG CAP PO SCH (21:37)
[2016-08-12] MEDS: DOCUSATE SODIUM/SENNA 50/8.6MG TAB PO SCH (21:38)
[2016-08-12] MEDS: LISINOPRIL 40 MG TAB PO SCH (21:38)
[2016-08-12] MEDS: INSULIN GLARGINE SOLOSTAR 100 UNITS/ML 3 ML PEN SC SCH (21:44)
[2016-08-12 23:18] VITALS: BP 155/77; PULSE 79; TEMP 37.6; O2SAT 92
[2016-08-12] MEDS: MAGNESIUM HYDROXIDE SUSP 30 ML UDC PO PRN (23:37)
[2016-08-13] MEDS ORDERED: INSULIN GLARGINE PER UNIT 5 UNITS in SYRINGE 0 ML SC STA (00:40)
[2016-08-13] MEDS ORDERED: INSULIN ASPART 100 UNITS/ML 3 ML PEN SC STA (01:04)
[2016-08-13] MEDS ORDERED: INSULIN GLARGINE SOLOSTAR 100 UNITS/ML 3 ML PEN SC ONE (01:15)
[2016-08-13 03:39] VITALS: BP 139/66; PULSE 76; TEMP 36.8; O2SAT 93
[2016-08-13 05:13] LABS: BASO % 0.1 %; BASO ABS # 0.01 K/uL (0-0.2); EOS % 0.5 %; HEMATOCRIT 26.4 % (42-52); IG% 0.4 %; LYMPH % 10.3 %; LYMPH ABS # 0.96 K/uL (1.2-3.4); MEAN CELL VOLUME 88.9 fL (80-100); MEAN CORPUSCULAR HGB CONC 33.7 g/dl (32-36); MEAN PLATELET VOLUME 11.2 fL (7.4-10.4); MONO % 9.4 %; NEUT % 79.3 %; PLATELET COUNT 138 K/uL (130-400); RED BLOOD COUNT 2.97 M/uL (4.7-6.1)
[2016-08-13 05:43] LABS: BUN/CREATININE RATIO 22.7 (10-20); CALCIUM 8.1 mg/dl (8.5-10.1); CREATININE 0.94 mg/dl (0.60-1.40); MAGNESIUM 2.4 mg/dl (1.8-2.4); POTASSIUM 3.8 mmol/L (3.5-5.1)
[2016-08-13 05:45] LABS: COMPLETE YES
[2016-08-13] MEDS: POLYETHYLENE (MIRALAX) 17 GM PACK PO SCH ×4 (06:23→23:24)
[2016-08-13] MEDS: HYDROmorphone HCL 0.5MG/ML 50 ML CASSETTE IV PRN (06:53)
[2016-08-13 07:48] VITALS: BP 136/66; PULSE 75; TEMP 36.8; O2SAT 93
[2016-08-13] MEDS: CARVEDILOL 25 MG TAB PO SCH ×2 (08:25→21:11)
[2016-08-13] MEDS: ASPIRIN 81 MG ECTAB PO SCH (08:26)
[2016-08-13] MEDS: FELODIPINE 5 MG TABCR PO SCH (08:28)
[2016-08-13] MEDS: HYDROCHLOROTHIAZIDE 25 MG TAB PO SCH (08:29)
[2016-08-13] MEDS: INSULIN ASPART 100 UNITS/ML 3 ML PEN SC SCH ×4 (08:34→21:36)
[2016-08-13] MEDS: SODIUM CHLORIDE 0.9% 1000ML 1,000 ML IV SCH (09:23)
[2016-08-13] MEDS ORDERED: NURSING VERBAL MED ORDER ONE (11:15)
--- NOTE | 2016-08-13 11:15 | Orthopedic Progress Note ---
Orthopedic Progress Note Date of Service Aug 13, 2016. Subjective Post OP Day: 3 Reports: feeling well, using STEREO PLOTTER OPERATOR Objective calves soft nontender, N/V intact, dressing C/D/I, A&O x3, hemovac drainage Date Time Temp Pulse Resp B/P Pulse Ox O2 Delivery O2 Flow Rate FiO2 08/13/16 07:48 36.8 75 17 136/66 93 Room Air 08/13/16 03:39 36.8 76 16 139/66 93 Room Air 08/12/16 23:18 37.6 79 18 155/77 92 Room Air 08/12/16 18:40 88 150/69 08/12/16 16:45 Room Air 08/12/16 15:46 36.8 82 16 153/68 92 Room Air Laboratory Results 24 Hours: Test 08/13/16 04:39 White Blood Count 9.30 K/uL Red Blood Count 2.97 M/uL Hemoglobin 8.9 g/dL Hematocrit 26.4 % Mean Corpuscular Volume 88.9 fL Mean Corpuscular Hemoglobin 30.0 pg Mean Corpuscular Hemoglobin Concent 33.7 g/dl Platelet Count 138 K/uL Mean Platelet Volume 11.2 fL Neutrophils (%) (Auto) 79.3 % Lymphocytes (%) (Auto) 10.3 % Monocytes (%) (Auto) 9.4 % Eosinophils (%) (Auto) 0.5 % Basophils (%) (Auto) 0.1 % Neutrophils # (Auto) 7.37 K/uL Lymphocytes # (Auto) 0.96 K/uL Monocytes # (Auto) 0.87 K/uL Eosinophils # (Auto) 0.05 K/uL Basophils # (Auto) 0.01 K/uL Assessment & Plan Assessment: reports constipation, LBP at surgical site. Plan: d/c personnel officer, d/c sunday? Discharge Planning Discharge Planning: home Pain Management: Oxy IR DVT Prophylaxis: TEDs, SCDs
[2016-08-13] MEDS: OXYCODONE HCL IR 5 MG TAB (IMMEDIATE RELEASE) PO PRN ×2 (13:14→22:10)
--- NOTE | 2016-08-13 15:49 | Progress Note ---
Internal Med Progress Note Date of Service: Aug 13, 2016. Provider Documentation: SUBJECTIVE: Patient is seen and examined at bedside. States his back pain is improving. Had 1 Bm today. Denies any chest pain, SOB, dizziness, headache. Family at bedside. Offers no other complaints. OBJECTIVE: Vital Signs-as noted below General Appearance:Obese, No distress Head: normocephalic, atraumatic Eyes: PERRL, EOMI, sclerae normal ENT: hearing grossly normal, pharynx normal Neck: supple, no JVD Respiratory/Chest: normal breath sounds, CTA, no accessory muscle use Cardiovascular: S1, S2, + systolic murmur Abdomen/GI: normal bowel sounds, non tender, soft Back: surgical site in bandage Extremities/Musculoskelatal: no calf tenderness, normal capillary refill, no pedal edema Neurologic/Psych: alert, oriented x 3, no motor or sensory deficits Skin: normal color, warm/dry, no rash Lab data as noted below. ASSESSMENT & PLAN: S/P L3-S1 DECOMPRESSION FUSION POD # [address] Keene Hb 8.9 today Monitor H&H Bowel regimen to prevent constipation Pain control HTN continue Plendil, HCTZ, Coreg, Lisinopril Hydralazine PRN BP better with increased HCTZ to 50mg daily Continue at current meds IDDM Last A1c 6.8 -Continue SSI coverage, Lantus BSG AC HS Diabetic diet Lantus increased to 65 for better glucose control HLD continue Statin RLS continue gabapentin CKD II stable Monitor GERD continue PPI DVT PX: per ortho CODE STATUS FULL CODE DISPOSITION: Likely discharge tomorrow per primary team noted Vital Signs: Date Time Temp Pulse Resp B/P Pulse Ox O2 Delivery O2 Flow Rate FiO2 08/13/16 07:48 36.8 75 17 136/66 93 Room Air 08/13/16 03:39 36.8 76 16 139/66 93 Room Air 08/12/16 23:18 37.6 79 18 155/77 92 Room Air 08/12/16 18:40 88 150/69 08/12/16 16:45 Room Air Lab Results: Results Past 24 Hours Test 08/12/16 16:54 08/12/16 20:38 08/13/16 01:11 08/13/16 04:39 Range/Units Bedside Glucose 231 237 244 70-99 mg/dl White Blood Count 9.30 4.8-10.8 K/uL Red Blood Count 2.97 4.7-6.1 M/uL Hemoglobin 8.9 14.0-18.0 g/dL Hematocrit 26.4 42-52 % Mean Corpuscular Volume 88.9 80-100 fL Mean Corpuscular Hemoglobin 30.0 25-34 pg Mean Corpuscular Hemoglobin Concent 33.7 32-36 g/dl Platelet Count 138 130-400 K/uL Mean Platelet Volume 11.2 7.4-10.4 fL Neutrophils (%) (Auto) 79.3 % Lymphocytes (%) (Auto) 10.3 % Monocytes (%) (Auto) 9.4 % Eosinophils (%) (Auto) 0.5 % Basophils (%) (Auto) 0.1 % Neutrophils # (Auto) 7.37 1.4-6.5 K/uL Lymphocytes # (Auto) 0.96 1.2-3.4 K/uL Monocytes # (Auto) 0.87 0.11-0.59 K/uL Eosinophils # (Auto) 0.05 0-0.5 K/uL Basophils # (Auto) 0.01 0-0.2 K/uL RDW Standard Deviation 45.2 36.4-46.3 fL RDW Coefficient of Variation 13.9 11.5-14.5 % Immature Granulocyte % (Auto) 0.4 % Immature Granulocyte # (Auto) 0.04 0.00-0.02 K/uL Sodium Level 141 136-145 mmol/L Potassium Level 3.8 3.5-5.1 mmol/L Chloride Level 104 98-107 mmol/L Carbon Dioxide Level 29 21-32 mmol/L Anion Gap 8.0 3-11 mmol/L Blood Urea Nitrogen 21 7-18 mg/dl Creatinine 0.94 0.60-1.40 mg/dl Est Creatinine Clear Calc Drug Dose 96.4 ml/min Estimated GFR () 97.5 Estimated GFR (Non- 84.2 BUN/Creatinine Ratio 22.7 10-20 Random Glucose 172 70-99 mg/dl Calcium Level 8.1 8.5-10.1 mg/dl Magnesium Level 2.4 1.8-2.4 mg/dl Test 08/13/16 08:14 08/13/16 11:27 Range/Units Bedside Glucose 221 234 70-99 mg/dl
[2016-08-13 16:19] VITALS: BP 147/54; PULSE 74; TEMP 37.2; O2SAT 92
[2016-08-13] MEDS: PANTOprazole SOD 40 MG TAB PO SCH (17:31)
[2016-08-13 18:55] VITALS: BP 146/63; PULSE 90; TEMP 37.1; O2SAT 92
[2016-08-13] MEDS ORDERED: INSULIN GLARGINE SOLOSTAR 100 UNITS/ML 3 ML PEN SC SCH (21:00)
[2016-08-13 21:11] VITALS: BP 132/59; PULSE 76
[2016-08-13] MEDS: ATORVASTATIN 40 MG TAB PO SCH (21:12)
[2016-08-13] MEDS: DOCUSATE SODIUM/SENNA 50/8.6MG TAB PO SCH (21:13)
[2016-08-13] MEDS: GABAPENTIN 300 MG CAP PO SCH (21:13)
[2016-08-13] MEDS: LISINOPRIL 40 MG TAB PO SCH (21:13)
[2016-08-13] MEDS ORDERED: PHARMACY GLYCEMIC MGMT CONSULT PRN (22:15)
[2016-08-13 22:45] VITALS: BP 143/62; PULSE 73; TEMP 37; O2SAT 93
[2016-08-14] MEDS: POLYETHYLENE (MIRALAX) 17 GM PACK PO SCH (05:20)
[2016-08-14 06:36] VITALS: BP 144/60; PULSE 72; TEMP 37.4; O2SAT 94
[2016-08-14] MEDS: FELODIPINE 5 MG TABCR PO SCH (07:43)
[2016-08-14] MEDS: OXYCODONE HCL IR 5 MG TAB (IMMEDIATE RELEASE) PO PRN ×2 (07:47→16:33)
[2016-08-14] MEDS: ASPIRIN 81 MG ECTAB PO SCH (07:47)
[2016-08-14] MEDS: CARVEDILOL 25 MG TAB PO SCH (07:47)
[2016-08-14] MEDS: HYDROCHLOROTHIAZIDE 25 MG TAB PO SCH (07:48)
[2016-08-14] MEDS: INSULIN ASPART 100 UNITS/ML 3 ML PEN SC SCH ×2 (07:55→12:46)
[2016-08-14] MEDS ORDERED: NURSING VERBAL MED ORDER ONE (08:30)
--- NOTE | 2016-08-14 14:09 | Pharmacy Progress Note ---
Glycemic Control Intl Consult Date of Service Aug 14, 2016. Scope Glycemic Pharmacist consulted by Dr Rodriguez on 08/13/16 for glycemic control and to write orders per [facility] inpatient glycemic control protocol. Objective Weight (Kilograms): 117.900 Accuchecks BSG (last 24hrs): Test 08/13/16 16:58 08/13/16 20:33 08/14/16 06:25 08/14/16 11:42 Bedside Glucose 175 mg/dl (70-99) 249 mg/dl (70-99) 158 mg/dl (70-99) 214 mg/dl (70-99) HbA1c 08/08/16 Hgb A1c = 6.8% Recent Pertinent Medications Outpatient Anti-diabetic Regimen: * Lantus 65 units hs, Novolog 24 units tid ac * A1c = 6.8 % 08/08/16 The patient is currently receiving: * Basal insulin: Lantus 65 units every hs- just increased yesterday * Correctional Insulin: Novolog Correction per scale ACHS Goal Range: Low 100 mg/dL - High 140 mg/dL Correction Factor: 30 mg/dL/unit * Prandial insulin: Per carb ratio of 1 unit per 7 grams CHO consumed * Oral Agents: none Risk Factors for Insulin Resistance: * Steroids: no * Infection: no * Pressors: no * IVF: no * Recent Surgery: POD#4 spinal surgery * Diet: type 2 diabetic, fairly good appetite * Mechanical Ventilation: no Assessment & Plan ASSESSMENT: * ADA & AACE recommend a goal blood sugar range 140-180 mg/dl for the majority of critically ill & non-critically ill patients. However, more stringent targets may be selected in individual cases. * 66 yo type 2 diabetic well-controlled on insulin prior to admission. BSG's have been in the 200's the past few days, partly due to intraoperative dexamethasone. BSG's ranged 158-249 over past 24 hr. FBS is improved with higher dose of Lantus (which may not be steady-state yet.) Will tighten correction factor and reassess in am. PLAN FOR INPATIENT GLYCEMIC CONTROL: * Continuing Lantus 65 units SQ hs * Changing correction factor to 25 mg/dl/unit * Continuing carb ratio 1 unit per 7 grams CHO consumed * Continuing goal range Low 100 mg/dL - High 140 mg/dL * Please note that the plan above was derived based on current level of insulin resistance and hospital stress. These recommendations are appropriate for inpatient admission only. Plan of care upon discharge will need to be reassessed to avoid potential outpatient hypo/hyperglycemia. Thank you.
[2016-08-14 15:24] VITALS: BP 147/75; PULSE 82; TEMP 37; O2SAT 93
[2016-08-14 15:38] VITALS: BP 109/46; PULSE 79; TEMP 37.4; O2SAT 94
--- NOTE | 2016-08-14 15:41 | Progress Note ---
Internal Med Progress Note Date of Service: Aug 14, 2016. Provider Documentation: SUBJECTIVE: Patient is seen and examined at bedside. Feels better. Ambulated well today. Denies any chest pain, SOB, dizziness. Family at bedside. States having minimal discharge from surgical site. OBJECTIVE: Vital Signs-as noted below General Appearance:Obese, No distress Head: normocephalic, atraumatic Eyes: PERRL, EOMI, sclerae normal ENT: hearing grossly normal, pharynx normal Neck: supple, no JVD Respiratory/Chest: normal breath sounds, CTA, no accessory muscle use Cardiovascular: S1, S2, + systolic murmur Abdomen/GI: normal bowel sounds, non tender, soft Back: surgical site in bandage Extremities/Musculoskelatal: no calf tenderness, normal capillary refill, no pedal edema Neurologic/Psych: alert, oriented x 3, no motor or sensory deficits Skin: normal color, warm/dry, no rash Lab data as noted below. ASSESSMENT & PLAN: S/P L3-S1 DECOMPRESSION FUSION POD # [address] Keene Hb 8.9 Stable Bowel regimen to prevent constipation Pain control DVT Px per Primary team HTN continue Plendil, HCTZ, Coreg, Lisinopril Hydralazine PRN BP better with increased HCTZ to 50mg daily Continue current meds IDDM Last A1c 6.8 Continue SSI coverage, Lantus BSG AC HS Diabetic diet Lantus increased to 65 for better glucose control HLD continue Statin RLS continue gabapentin CKD II stable Monitor GERD continue PPI DVT PX: per ortho CODE STATUS FULL CODE Vital Signs: Date Time Temp Pulse Resp B/P Pulse Ox O2 Delivery O2 Flow Rate FiO2 08/14/16 15:38 37.4 79 18 109/46 94 Room Air 08/14/16 08:32 Room Air 08/14/16 06:36 37.4 72 16 144/60 94 Room Air 08/13/16 23:20 Room Air 08/13/16 22:45 37.0 73 18 143/62 93 Room Air 08/13/16 21:11 76 132/59 08/13/16 18:55 37.1 90 18 146/63 92 Room Air 08/13/16 16:19 37.2 74 16 147/54 92 Room Air 08/13/16 16:00 Room Air Lab Results: Results Past 24 Hours Test 08/13/16 16:58 08/13/16 20:33 08/14/16 06:25 08/14/16 11:42 Range/Units Bedside Glucose 175 249 158 214 70-99 mg/dl
[2016-08-14] MEDS: PANTOprazole SOD 40 MG TAB PO SCH (17:15)
[2016-08-14 17:19] VITALS: BP 109/46; PULSE 79; TEMP 37.4; O2SAT 94
--- NOTE | 2016-08-22 12:12 | DISCHARGE SUMMARY ---
PRINCIPLE DIAGNOSES: L3-L4, L4-L5 and L5-S1 spinal stenosis and disc degeneration, previous L5-S1 decompression x2. POSTOPERATIVE DIAGNOSES: Same. PROCEDURE: L3 and L4 laminectomies with bilateral L3-L4 and L4-L5 medial facetectomies, pedicle screw instrumentation at L3, L4, and L5, posterior spinal fusion L3-S1. Right iliac crest bone marrow aspiration with stem cell concentration. SURGEON: Dr. Lokesh Keene. PASTRYCOOK: Christos Kimball PA-C. HISTORY OF PRESENT ILLNESS: Please refer to EMR. HOSPITAL COURSE: On 08/10/2016, Mr. Nayak was admitted to [facility] with the above diagnosis. He was taken to preoperative holding where he was identified, evaluated, and cleared for surgical management, transferred to the operating room, introduced a general endotracheal anesthesia, sterile conditions were set, and he successfully underwent the above procedure without complication or issue. He was awakened in stable and satisfactory condition and transported to postoperative recovery. Here, her vital signs and pain were monitored and managed. The patient remained medically stable and was taken to the orthopedic floor for continued postoperative care. Throughout his stay, his vital signs, pain and labs were routinely monitored and managed through physician direction effectively, participated in physical therapy with good noted progress. LUZ MARINA output significantly diminished. Medically, he remained stable. There were no postoperative complications or iatrogenic issues to note during his hospitalization. He was evaluated on 08/14/2016 and indicated for discharge home. On this date, he was discharged from [facility]. DISPOSITION: Home. DISPOSITION CONDITION: Stable. NOTED COMPLICATIONS OR ISSUES: Zero. DISCHARGE INSTRUCTIONS: Please refer to EMR.
== END 2016-08-14 17:30 | disposition home or self-care (01) | DRG 460 ==
LOC: ENRESERVDT → ENRESERVTM → C.ACU 05:29 → C.MSN 07:20
PROVIDERS: ADMIT Orthopaedic Surgery Orthopaedic Surgery of the Spine; ATTEND Orthopaedic Surgery Orthopaedic Surgery of the Spine
PROC: 0SG3071 Fusion of Lumbosacral Joint with Autologous Tissue Substitute, Posterior Approach, Posterior Column, Open Approach (ICD-10-PCS; principal; 2016-08-10 07:30)
PROC: 0SG1071 Fusion of 2 or more Lumbar Vertebral Joints with Autologous Tissue Substitute, Posterior Approach, Posterior Column, Open Approach (ICD-10-PCS; principal; 2016-08-10 07:30)
PROC: 07DR3ZZ Extraction of Iliac Bone Marrow, Percutaneous Approach (ICD-10-PCS; principal; 2016-08-10 07:30)
PROC: 3E0U0GB Introduction of Recombinant Bone Morphogenetic Protein into Joints, Open Approach (ICD-10-PCS; principal; 2016-08-10 07:30)
DX: M48.06 Spinal stenosis, lumbar region (principal); M48.07 Spinal stenosis, lumbosacral region; M51.36 Other intervertebral disc degeneration, lumbar region; M51.37 Other intervertebral disc degeneration, lumbosacral region; R11.0 Nausea; K59.00 Constipation, unspecified; E11.42 Type 2 diabetes mellitus with diabetic polyneuropathy; E11.22 Type 2 diabetes mellitus with diabetic chronic kidney disease; I12.9 Hypertensive chronic kidney disease with stage 1 through stage 4 chronic kidney disease, or unspecified chronic kidney disease; N18.2 Chronic kidney disease, stage 2 (mild); K21.9 Gastro-esophageal reflux disease without esophagitis; E78.5 Hyperlipidemia, unspecified; N40.0 Benign prostatic hyperplasia without lower urinary tract symptoms; G25.81 Restless legs syndrome; D64.9 Anemia, unspecified; M19.90 Unspecified osteoarthritis, unspecified site; E66.9 Obesity, unspecified; Z68.39 Body mass index [BMI] 39.0-39.9, adult; Z87.891 Personal history of nicotine dependence; Z79.4 Long term (current) use of insulin; Z79.82 Long term (current) use of aspirin; Z79.891 Long term (current) use of opiate analgesic; Z79.899 Other long term (current) drug therapy

== ENCOUNTER → 2017-06-05 | Outpatient (CLI) | payer OTHER ==
[~2017-06-05] MED LIST changes: -ULT/50 PO
== END | disposition home or self-care (01) ==
LOC: C.LABSPEC 10:13
PROVIDERS: ATTEND Orthopaedic Surgery Sports Medicine
DX: M11.20 Other chondrocalcinosis, unspecified site (principal)

== ENCOUNTER 2021-11-03 10:34 | Observation (INO) ==
--- NOTE | 2021-11-03 11:17 | Emergency Department Note ---
Impression & Plan Acute GI bleeding, Anemia, Symptomatic anemia, DUNG (acute kidney injury) ED Provider Note NAME: FE MAZARIEGOS III AGE: 71 SEX: M : 1950 ARRIVES VIA: Walk-In INFORMANT: Patient ED PROVIDER(S): Ji Hines DO CHIEF COMPLAINT: drop in Hgb HPI: Patient is a 71-year-old male with a past medical history of diabetes, GERD who presents the ER for drop in hemoglobin. 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 No chemo or radiation since this past April. He admits to increased swelling of his legs. Lasix was recently increased by his tallow refiner at case here. He denies any headache or change in vision. No chest pain but some mild shortness of breath. No belly pain nausea vomiting or diarrhea. Admits to black stools off and on for the past month. ROS: See above HPI for pertinent positives & negatives. A total of 10 systems reviewed and were otherwise negative. PAST MEDICAL HISTORY:See Below PAST SURGICAL HISTORY:See Below FAMILY HISTORY:See Below SOCIAL HISTORY:See Below HOME MEDICATIONS:See Below ALLERGIES:See Below VITALS:See Below PHYSICAL EXAMINATION: GENERAL: Sitting up in bed, alert, chronically ill-appearing EYE EXAM: normal conjunctiva. PERRL and EOM's grossly intact. OROPHARYNX: no exudate, no erythema, lips, buccal mucosa, and tongue normal and mucous membranes are moist NECK: supple, no nuchal rigidity, no adenopathy, non-tender LUNGS: Clear to auscultation. Normal chest wall mechanics HEART: no murmurs, S1 normal and S2 normal ABDOMEN: abdomen soft, non-tender, normo-active bowel sounds, no masses, no rebound or guarding. UPPER EXTREMITIES: upper extremities are grossly normal. LOWER EXTREMITIES: No pitting edema. NEURO EXAM: Normal sensorium, cranial nerves II-XII grossly intact, normal speech, no gross weakness of arms, no gross weakness of legs. MEDICAL DECISION MAKING: Patient is a 71-year-old male who presents ER for the boasting complaint. IV was established with orders obtained. Labs show no significant leukocytosis. Moderate anemia at 7 down from 9. INR was elevated at 3.6. BMP with an elevated BUN at 116. Creatinine significantly elevated at 4 up from baseline 1.9. LFTs bilirubin was unremarkable. Heme positive. Patient was typed and crossed and given 2 units PRBCs. He was reversed with IV K. He was updated bedside. Placed on Protonix drip and bolus. Discussed with hospitalist admitted for further work-up. Triage Nursing notes reviewed. Limited review of prior medical records performed Vital Signs: reviewed and remarkable for tachy Differential diagnosis: Differential diagnosis includes etiologies such as diverticulitis, diverticulosis, AVM, coagulopathy, colitis, inflammatory bowel disease, malignancy, Nya-Whitney tear, esophagitis, peptic ulcer disease, variceal bleed, gastritis, epistaxis, fissure, hemorrhoids, as well as others were entertained. ER treatment provided: See below Diagnostics interpreted by me: ECG: Sinus rhythm rate 97 Normal axis No PVCs QTC 441 Cardiac Monitoring: An order was placed for continuous cardiac monitoring. The monitor shows a rate of 110 with sinus rhythm. Laboratory studies: As stated above and show below. Imaging studies: See below Consultation(s): Discussed with hospitalist for further evaluation Procedures: none Critical Care: I have personally spent 32 minutes of critical care time in the direct management of this patient. This includes bedside care, interpretation of diagnostic studies, and testing, discussion with consultants, patient, and family members, and other required patient management activities. This 32 minutes is in excess of all separately billable procedures. Past Med/Surg History Medical History (Updated 11/03/21 @ 17:39 by Ji Hines DO) Atrial fibrillation dx 8 months ago; follows with Dr. Fernandez; on warfarin BPH (benign prostatic hyperplasia) CKD (chronic kidney disease) follows with Dr. Willams DDD (degenerative disc disease) DM type 2 (diabetes mellitus, type 2) GERD (gastroesophageal reflux disease) History of kidney cancer dx 2018 - sx; recurrence w/ mets to lung approx 1 year ago - chemo + radiation History of skin cancer removed Osteoarthritis RLS (restless legs syndrome) Surgical History History of appendectomy History of bowel resection History of cataract surgery LEFT History of cervical spinal surgery limited ROM side to side History of colonoscopy History of lumbar surgery x 3 History of partial nephrectomy BL History of repair of rotator cuff History of tonsillectomy Family History Other No family history of adverse response to anesthesia Social History Smoking Status: Former smoker Tobacco Type: Cigarettes Number of Years Since Quit: 40; Second Hand Exposure: No; Tobacco Cessation Education Requested by Patient: No Hx Alcohol Use: No Hx Substance Use: No Preferred Language: Serbian Communication Ability: Effective Visual Impairment: No Limitations Hearing Ability: Normal Operations Support Coordinator Required: No Beliefs That Will Affect Care: None marital status: Current Living Situation: Spouse current occupational status: retired How many Children do You have: 2 How many Children do You have Comment: children are local, mainly assists with care as needed. Other Information That Helps Us Care for You: No Feels Safe at Home: Yes during the past year weight has: increased > 10 lbs Assistive Devices: Walker Allergies Allergies Allergy/AdvReac Type Severity Reaction Status Date / Time No Known Allergies Allergy Mild Verified 07/27/21 08:14 Home Meds Home Medications Medication Instructions Recorded Confirmed atorvastatin 80 mg tablet 80 mg PO HS 12/03/18 11/03/21 finasteride 5 mg tablet 5 mg PO HS 12/03/18 11/03/21 hydralazine 50 mg tablet 100 mg PO TID 12/03/18 11/03/21 insulin aspart U-100 100 unit/mL 0 unit SUBCUT .SLIDING SCALE 12/03/18 11/03/21 (3 mL) subcutaneous pen (Novolog Flexpen U-100 Insulin aspart) insulin glargine 100 unit/mL (3 30 unit SUBCUT HS 12/03/18 11/03/21 mL) subcutaneous pen (Basaglar KwikPen U-100 Insulin) omeprazole 20 mg capsule,delayed 20 mg PO QDL 12/03/18 11/03/21 release tamsulosin 0.4 mg capsule 0.4 mg PO QDL 12/03/18 11/03/21 calcium carbonate 600 mg calcium 600 mg PO BID 03/18/21 11/03/21 (1,500 mg) tablet (Calcium) coQ10 (ubiquinol) 200 mg capsule 400 mg PO QAM 03/18/21 11/03/21 magnesium 200 mg tablet 400 mg PO QAM 03/18/21 11/03/21 ropinirole 1 mg tablet 2 mg PO HS 03/18/21 11/03/21 warfarin 2.5 mg tablet See Rx Instructions .ROUTE .COMPLEX 03/18/21 11/03/21 ferrous sulfate 325 mg (65 mg 325 mg PO BID tab 06/02/21 11/03/21 iron) tablet (iron) metoprolol succinate 100 mg 150 mg PO BID tab 06/02/21 11/03/21 tablet,extended release 24 hr ascorbic acid (vitamin C) 500 mg 500 mg PO BID 11/03/21 11/03/21 tablet (Vitamin C) cholecalciferol (vitamin D3) 25 1,000 unit PO QAM 11/03/21 11/03/21 mcg (1,000 unit) tablet (Vitamin D3) torsemide 100 mg tablet 100 mg PO QAM 11/03/21 11/03/21 tramadol 50 mg tablet 50 mg PO Q6H PRN 11/03/21 11/03/21 zinc sulfate 50 mg zinc (220 mg) 50 mg PO QAM 11/03/21 11/03/21 tablet Results & Data (ED) Vital Signs Vital Signs - 24 hr 11/03/21 10:47 11/03/21 11:31 11/03/21 12:00 Temperature 36.4 C L Temperature Source Temporal Artery Scan Pulse Rate 113 H Pulse Rate [Apical] 99 H Respiratory Rate 18 17 Blood Pressure 138/78 Blood Pressure [Left Arm] 125/81 Blood Pressure Mean 98 Blood Pressure Mean [Left Arm] 95 Pulse Oximetry 97 94 Oxygen Delivery Method Room Air Room Air Room Air Sepsis Recent Fever Within 48 Hours No Sepsis New/Unexplained Change in Mental Status No Sepsis Action Taken by Nursing No Action Required 11/03/21 13:30 Temperature Temperature Source Pulse Rate Pulse Rate [Apical] 109 H Respiratory Rate 20 Blood Pressure Blood Pressure [Left Arm] 134/74 Blood Pressure Mean Blood Pressure Mean [Left Arm] 94 Pulse Oximetry 95 Oxygen Delivery Method Room Air Sepsis Recent Fever Within 48 Hours Sepsis New/Unexplained Change in Mental Status Sepsis Action Taken by Nursing Laboratory Data Result diagrams: 11/03/21 11:14 11/03/21 11:14 Lab Results 11/03/21 11/03/21 11/03/21 Range/Units 11:14 11:14 11:14 WBC 7.65 (4.8-10.8) K/uL RBC 2.44 L (4.7-6.1) M/uL Hgb 7.0 L (14.0-18.0) g/dL Hct 23.6 L (42-52) % MCV 96.7 (80-100) fL MCH 28.7 (25-34) pg MCHC 29.7 L (32-36) g/dL RDW Std Deviation 78.4 H (36.4-46.3) fL RDW Coeff of Yuly 22.2 H (11.5-14.5) % Plt Count 244 (130-400) K/uL MPV 11.5 H (7.4-10.4) fL Immature Gran % (Auto) 0.3 % Neut % (Auto) 87.3 % Lymph % (Auto) 3.3 % [place] % (Auto) 8.1 % Eos % (Auto) 1.0 % Baso % (Auto) 0.0 % Neut # (Auto) 6.68 H (1.4-6.5) K/uL Lymph # (Auto) 0.25 L (1.2-3.4) K/uL [place] # (Auto) 0.62 H (0.11-0.59) K/uL Eos # (Auto) 0.08 (0-0.5) K/uL Baso # (Auto) 0.00 (0-0.2) K/uL Immature Gran # (Auto) 0.02 (0.00-0.02) K/uL Absolute Nucleated RBC 0.03 H (0-0) K/uL Nucleated RBC % (auto) 0.4 % Hypochromasia Present Anisocytosis Present Ovalocytes 1+ PT 35.4 H (9.0-12.0) Seconds INR 3.6 H (0.9-1.1) APTT 42.5 H (21.0-31.0) Seconds PTT Ratio 1.5 Sodium 137 (136-145) mmol/L Potassium 4.5 (3.5-5.1) mmol/L Chloride 107 (98-107) mmol/L Carbon Dioxide 19 L (21-32) mmol/L Anion Gap 11 (3-11) BUN 116 H (6-23) mg/dl Creatinine 4.12 H (0.6-1.4) mg/dl Est Cr Clr Drug Dosing 19.5 ml/min Est GFR ( Amer) 15.8 ml/min Est GFR (Non-Af Amer) 13.6 ml/min BUN/Creatinine Ratio 28.2 H (10-20) Glucose 136 H (70-99(Fasting)) mg/dl Calcium 8.6 (8.5-10.1) mg/dl Total Bilirubin 1.0 (0.2-1.0) mg/dl AST 12 L (13-39) U/L ALT 9 (7-52) U/L Alkaline Phosphatase 101 (34-104) U/L Total Protein 6.7 (6.0-8.3) gm/dl Albumin 3.6 (3.4-5.0) gm/dl Globulin 3.1 (2.5-4.0) gm/dl Albumin/Globulin Ratio 1.2 (0.9-2) POC Stool Occult Blood (Negative) SARS-CoV-2, RNA, NAAT (NEGATIVE) Blood Type Antibody Screen Crossmatch 11/03/21 11/03/21 11/03/21 Range/Units 11:14 11:18 11:23 WBC (4.8-10.8) K/uL RBC (4.7-6.1) M/uL Hgb (14.0-18.0) g/dL Hct (42-52) % MCV (80-100) fL MCH (25-34) pg MCHC (32-36) g/dL RDW Std Deviation (36.4-46.3) fL RDW Coeff of Yuly (11.5-14.5) % Plt Count (130-400) K/uL MPV (7.4-10.4) fL Immature Gran % (Auto) % Neut % (Auto) % Lymph % (Auto) % [place] % (Auto) % Eos % (Auto) % Baso % (Auto) % Neut # (Auto) (1.4-6.5) K/uL Lymph # (Auto) (1.2-3.4) K/uL [place] # (Auto) (0.11-0.59) K/uL Eos # (Auto) (0-0.5) K/uL Baso # (Auto) (0-0.2) K/uL Immature Gran # (Auto) (0.00-0.02) K/uL Absolute Nucleated RBC (0-0) K/uL Nucleated RBC % (auto) % Hypochromasia Anisocytosis Ovalocytes PT (9.0-12.0) Seconds INR (0.9-1.1) APTT (21.0-31.0) Seconds PTT Ratio Sodium (136-145) mmol/L Potassium (3.5-5.1) mmol/L Chloride (98-107) mmol/L Carbon Dioxide (21-32) mmol/L Anion Gap (3-11) BUN (6-23) mg/dl Creatinine (0.6-1.4) mg/dl Est Cr Clr Drug Dosing ml/min Est GFR ( Amer) ml/min Est GFR (Non-Af Amer) ml/min BUN/Creatinine Ratio (10-20) Glucose (70-99(Fasting)) mg/dl Calcium (8.5-10.1) mg/dl Total Bilirubin (0.2-1.0) mg/dl AST (13-39) U/L ALT (7-52) U/L Alkaline Phosphatase (34-104) U/L Total Protein (6.0-8.3) gm/dl Albumin (3.4-5.0) gm/dl Globulin (2.5-4.0) gm/dl Albumin/Globulin Ratio (0.9-2) POC Stool Occult Blood Positive A (Negative) SARS-CoV-2, RNA, NAAT NEGATIVE (NEGATIVE) Blood Type O Positive Antibody Screen NEGATIVE Crossmatch See Detail Administered Medications Tramadol HCl (Tramadol Hcl 50 Mg Tablet) 50 mg PO Q6H PRN PRN Reason: Pain Stop: 12/03/21 16:07 Last Admin: 11/03/21 16:51 Dose: 50 mg Documented by: [id number] Discontinued Medications Furosemide (Furosemide 40 Mg/4 Ml Vial) 60 mg IV ONE ONE Stop: 11/03/21 14:31 Last Admin: 11/03/21 17:15 Dose: 60 mg Documented by: [id number] Furosemide (Furosemide 40 Mg/4 Ml Vial) Confirm Administered Dose 80 mg IV .STK- MED ONE Stop: 11/03/21 17:11 Last Admin: 11/03/21 17:16 Dose: Not Given Documented by: [id number] Pantoprazole Sodium (Protonix Bolus/Drip) 0 mls @ 1 mls/hr IV ONE STA Stop: 11/03/21 11:19 Last Admin: 11/03/21 14:35 Dose: Not Given Documented by: [id number] Pantoprazole Sodium 40 mg/ (Dextrose) 100 mls @ 20 mls/hr IV Q5H HERBER Stop: 12/03/21 11:44 Last Admin: 11/03/21 13:26 Dose: 8 mg/hr, 20 mls/hr Documented by: [id number] Pantoprazole Sodium 80 mg/ (Dextrose) 120 mls @ 400 mls/hr IV NOW ONE Stop: 11/03/21 11:35 Last Infusion: 11/03/21 13:27 Dose: 0 mls/hr Documented by: [id number] Admin: 11/03/21 12:28 Dose: 400 mls/hr Documented by: [id number] Phytonadione 10 mg/ Dextrose 51 mls @ 102 mls/hr IV ONE ONE Stop: 11/03/21 13:28 Last Admin: 11/03/21 14:34 Dose: 102 mls/hr Documented by: [id number] Sodium Chloride (Nss 1000ml) 500 mls @ 999 mls/hr IV .Q31M ONE Stop: 11/03/21 13:47 Last Admin: 11/03/21 14:34 Dose: Not Given Documented by: [id number] Imaging Data Radiologist's Impression: Chest X-Ray 11/03/21 11:12 XR chest 1V portable HISTORY: Shortness of breath. COMPARISON: Chest 12/03/2018. FINDINGS: No pneumothorax. Trace bilateral pleural effusions. The heart is enlarged. There is mild central pulmonary vascular congestion without overt edema. Patchy right basilar airspace opacity is noted. Cervical spinal fusion hardware. IMPRESSION: 1. Cardiomegaly with mild pulmonary vascular congestion and trace bilateral pleural effusions. 2. Patchy right basilar densities. This may represent atelectasis or pneumonia. ACT 112: Negative or not required by law. Electronically signed by: Todd Galloway M.D. 11/03/2021 11:39 AM Discharge Plan Visit Data Chief Complaint: Abnormal Labs/Diagnostic Testing Stated Complaint: ABNORMAL LABS ED Provider: Ji Hines Discharge Problem: Acute GI bleeding, Anemia, Symptomatic anemia, DUNG (acute kidney injury) Patient Disposition: Admitted As Inpatient Discharge Instructions Interventions: ED Discharge Assessment Last Done: 11/03/21 14:55 Discharge Problem: Anemia Qualifiers: Anemia type: unspecified type Qualified Code(s): D64.9 - Anemia, unspecified
[2021-11-03] MEDS ORDERED: PANTOprazole 80 MG in DEXTROSE 5% 100 ML IV ONE (11:18)
[2021-11-03] MEDS ORDERED: PANTOPRAZOLE BOLUS/DRIP 1 EA IV STA (11:18)
[2021-11-03] MEDS ORDERED: SODIUM CHLORIDE 0.9% 250 ML IV PRN ×2 (11:18→12:59)
--- NOTE | 2021-11-03 11:40 | XRay Report ---
XR chest 1V portable HISTORY: Shortness of breath. COMPARISON: Chest 12/03/2018. FINDINGS: No pneumothorax. Trace bilateral pleural effusions. The heart is enlarged. There is mild ce ntral pulmonary vascular congestion without overt edema. Patchy right basilar airspace opacity is not ed. Cervical spinal fusion hardware. IMPRESSION: 1. Cardiomegaly with mild pulmonary vascular congestion and trace bilateral pleural effusions. 2. Patchy right basilar densities. This may represent atelectasis or pneumonia. ACT 112: Negative or not required by law. Electronically signed by: Todd Galloway M.D. 11/03/2021 11:39 AM
[2021-11-03 12:23] LABS: Eosinophils # (auto) 0.08 K/uL (0-0.5); Hematocrit (blood only) 23.6 % (42-52); Immature Granulocytes # (auto) 0.02 K/uL (0.00-0.02); Immature Granulocytes % (auto) 0.3 %; Lymphocytes # (auto) 0.25 K/uL (1.2-3.4); Lymphocytes % (auto) 3.3 %; Mean Corpuscular Hemoglobin 28.7 pg (25-34); Mean Corpuscular Hgb Conc 29.7 g/dL (32-36); Mean Corpuscular Volume 96.7 fL (80-100); Mean Platelet Volume 11.5 fL (7.4-10.4); Monocytes # (auto) 0.62 K/uL (0.11-0.59); Monocytes % (auto) 8.1 %; Neutrophils # (auto) 6.68 K/uL (1.4-6.5); Neutrophils % (auto) 87.3 %; Nucleated RBC # (auto) 0.03 K/uL (0-0); Nucleated RBC % (auto) 0.4 %; Platelet Count 244 K/uL (130-400); RDW Coefficient of Variation 22.2 % (11.5-14.5); RDW Standard Deviation 78.4 fL (36.4-46.3); Red Blood Count 2.44 M/uL (4.7-6.1); White Blood Count 7.65 K/uL (4.8-10.8)
[2021-11-03 12:34] LABS: INR 3.6 (0.9-1.1); Partial Thromboplastin Ratio 1.5; Partial Thromboplastin Time 42.5 Seconds (21.0-31.0); Prothrombin Time 35.4 Seconds (9.0-12.0)
[2021-11-03 12:43] LABS: Albumin Globulin Ratio 1.2 (0.9-2); Albumin Level 3.6 gm/dl (3.4-5.0); BUN Creatinine Ratio 28.2 (10-20); Calcium 8.6 mg/dl (8.5-10.1); Creatinine Clr Calc Pharmacy 19.5 ml/min; Est GFR (African American) 15.8 ml/min; Est GFR (Non-African American) 13.6 ml/min; Globulin 3.1 gm/dl (2.5-4.0); Potassium 4.5 mmol/L (3.5-5.1); Total Protein 6.7 gm/dl (6.0-8.3)
[2021-11-03] MEDS ORDERED: PHYTONADIONE 10 MG in DEXTROSE 5% 50 ML IV ONE (12:59)
[2021-11-03 13:02] LABS: Anisocytosis Present; Hypochromasia Present; Ovalocytes 1+
[2021-11-03] MEDS ORDERED: SODIUM CHLORIDE 0.9% 1000ML 500 ML IV ONE (13:17)
--- NOTE | 2021-11-03 13:22 | History & Physical Report ---
Date of Service November 03, 2021 Assessment & Plan (1) Anemia: Plan: -Admit to [facility] with telemetry -Concern for GI source of bleeding with dark tarry stools x1 month, patient reports that he is also on an iron tablet -Guaiac is positive -Hemoglobin is 7.0 today, was 6.4 as an outpatient yesterday -Consult GI for possible EGD, holding coumadin, reversing with Vit K -Started on Protonix drip, will switch to bolus daily to eliminate fluids in the setting of volume overload, most likely is a slow bleed as the patient reports being constipated, with last BM this morning which was formed. (2) CKD (chronic kidney disease): (3) History of kidney cancer: Plan: -Consult nephrology, discussed with Dr. Armenta via [facility] text -IV Lasix 60 mg x 1 after blood transfusion, will then use IV lasix 40 mg BID, reassess and nephro to help determine when to resume torsemide - Follow am Cr/BUN, currently elevated at 4.12 and nephrology aware - Previous notes indicated the pt would not be a good candidate for dialysis, may need to readdress goals of care during this hospitalization -Currently is not on chemotherapy, previously was suggested he go on hospice/palliative care, appears that he has changed his mind in the past few months, also today wants full code. (4) UTI (urinary tract infection): Plan: - Noted UA from outpt results appears to be infected, check UA and follow urine culture here today - Start ceftriaxone IV - No wbc, afebrile - Pt admits to burning with urination today (5) DM type 2 (diabetes mellitus, type 2): Plan: - Continue HS long acting, reduce to 15 U while NPO - Cont ISS with accuchecks achs - Last a1c was around 7, improved compared to previously (6) Atrial fibrillation: Plan: - Holding coumadin for now, monitor INR daily, giving Vit K in regards to possible GI bleed and needs for EGD - Currently rate controlled - Follow with Dr. 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 Brito and was recently offered a liquid biopsy for NGS, other history includes anemia, thrombocytopenia, proteinuria, A. fib anticoagulated on Coumadin. He was seen by his appraiser land, Dr. Willams yesterday who had increased his torsemide from 60 mg to 100 mgdue to increased volume overload. He took his first dose of 100 mg this morning and did have slightly increased urine output. He admits to having some burning with initiation of urination however denies any hematuria, retention, or increased frequency. UA from yesterday is suspicious for a UTI, will recheck and send culture today and start empirically on ceftriaxone. Patient notes that his bowels have been constipated, and uses mineral oil to move them. He denies any BRBPR, but does admit to some dark tarry stools. He has been taking iron tablet routinely. Patient also notes increased shortness of breath which has progressively gotten worse over the past 3 to 4 weeks. He is denying shortness of breath lying on his left side in bed, but reports increased work of breathing with minimal exertional activities or ADLs. He feels swollen in his feet, legs and abdomen today. He denies any chest pain or heaviness or palpitations or flutter. He has been taking Coumadin as directed for his A. fib and not missed a dose, last took 2.5 mg last evening. INR has been stable Pt was referred to the ER today due to hemoglobin drop to 6.4 on 11/02 by outpatient labs. Today here his hemoglobin is 7.0. Patient is reporting black stools on and off x1 month and due to being on Coumadin concern for GI bleed, INR today is 3.6. Allergies Allergy/AdvReac Type Severity Reaction Status Date / Time No Known Allergies Allergy Mild Verified 07/27/21 08:14 Home Medications Medication Instructions Recorded Confirmed Type atorvastatin 80 mg tablet 80 mg PO HS 12/03/18 11/03/21 History finasteride 5 mg tablet 5 mg PO HS 12/03/18 11/03/21 History hydralazine 50 mg tablet 100 mg PO TID 12/03/18 11/03/21 History insulin aspart U-100 100 unit/mL 0 unit SUBCUT .SLIDING SCALE 12/03/18 11/03/21 History (3 mL) subcutaneous pen (Novolog Flexpen U-100 Insulin aspart) insulin glargine 100 unit/mL (3 30 unit SUBCUT HS 12/03/18 11/03/21 History mL) subcutaneous pen (Basaglar KwikPen U-100 Insulin) omeprazole 20 mg capsule,delayed 20 mg PO QDL 12/03/18 11/03/21 History release tamsulosin 0.4 mg capsule 0.4 mg PO QDL 12/03/18 11/03/21 History calcium carbonate 600 mg calcium 600 mg PO BID 03/18/21 11/03/21 History (1,500 mg) tablet (Calcium) coQ10 (ubiquinol) 200 mg capsule 400 mg PO QAM 03/18/21 11/03/21 History magnesium 200 mg tablet 400 mg PO QAM 03/18/21 11/03/21 History ropinirole 1 mg tablet 2 mg PO HS 03/18/21 11/03/21 History warfarin 2.5 mg tablet See Rx Instructions .ROUTE .COMPLEX 03/18/21 11/03/21 History ferrous sulfate 325 mg (65 mg 325 mg PO BID tab 06/02/21 11/03/21 History iron) tablet (iron) metoprolol succinate 100 mg 150 mg PO BID tab 06/02/21 11/03/21 History tablet,extended release 24 hr ascorbic acid (vitamin C) 500 mg 500 mg PO BID 11/03/21 11/03/21 History tablet (Vitamin C) cholecalciferol (vitamin D3) 25 1,000 unit PO QAM 11/03/21 11/03/21 History mcg (1,000 unit) tablet (Vitamin D3) torsemide 100 mg tablet 100 mg PO QAM 11/03/21 11/03/21 History tramadol 50 mg tablet 50 mg PO Q6H PRN 11/03/21 11/03/21 History zinc sulfate 50 mg zinc (220 mg) 50 mg PO QAM 11/03/21 11/03/21 History tablet Past Med/Surg History Medical History (Updated 11/03/21 @ 17:39 by Ji Hines DO) Atrial fibrillation dx 8 months ago; follows with Dr. Fernandez; on warfarin BPH (benign prostatic hyperplasia) CKD (chronic kidney disease) follows with Dr. Willams DDD (degenerative disc disease) DM type 2 (diabetes mellitus, type 2) GERD (gastroesophageal reflux disease) History of kidney cancer dx 2018 - sx; recurrence w/ mets to lung approx 1 year ago - chemo + radiation History of skin cancer removed Osteoarthritis RLS (restless legs syndrome) Surgical History History of appendectomy History of bowel resection History of cataract surgery LEFT History of cervical spinal surgery limited ROM side to side History of colonoscopy History of lumbar surgery x 3 History of partial nephrectomy BL History of repair of rotator cuff History of tonsillectomy Family History Other No family history of adverse response to anesthesia Social History Smoking Status: Former smoker Tobacco Type: Cigarettes Number of Years Since Quit: 40; Second Hand Exposure: No; Tobacco Cessation Education Requested by Patient: No Hx Alcohol Use: No Hx Substance Use: No Preferred Language: Bengali Communication Ability: Effective Visual Impairment: No Limitations Hearing Ability: Normal Store Operations Associate Required: No Beliefs That Will Affect Care: None marital status: Current Living Situation: Spouse current occupational status: retired How many Children do You have: 2 How many Children do You have Comment: children are local, mainly assists with care as needed. Other Information That Helps Us Care for You: No Feels Safe at Home: Yes during the past year weight has: increased > 10 lbs Assistive Devices: Walker Review of Systems Review of Systems: Constitutional: No fever, sweats or chills Eyes: No diplopia, no worsening or blurred vision ENT: normal hearing, no trouble swallowing Respiratory: No cough, sputum, + dyspnea on exertion Cardiovascular: No chest pain, tightness or palpitations Abdomen: No pain, nausea, vomiting, diarrhea or constipation Musculoskeletal: No joint pain, calf pain, + increase leg swelling as per HPI Neurologic: No weakness, numbness/tingling, or balance problems Psychiatric: No anxiety or depression Skin: No rash or , scraped his right knee yesterday and has ointment on it, no itch Physical Exam Physical Exam: General: awake, alert, no apparent distress Head: Normocephalic, atraumatic ENT: PERRL, EOMI, no pharyngeal exudate, mucous membranes moist Chest: on room air, diminished breath sounds at bases Cardiac: irregularly irregular, rates in low 100s, no murmur, no JVD, normal peripheral pulses, good capillary refill Abdominal: NABS x 4 quadrants, soft, nondistended, nontender to palpation, no rebound or guarding Extremities: +2 pitting peripheral edema up above the knee, + Right knee abraision, no erythema, calfs nontender to palpation Psych: Normal mood and affect Neuro: AAO x 3, strength intact bilaterally and rated 5/5, no motor deficits, speech is clear, no peripheral sensory deficits Results & Data Results & Data ([facility]) Vital Signs (Past 12 Hours) Vital Signs Temp Pulse Resp BP Pulse Ox 11/03/21 10:47 36.4 C L 113 H 18 138/78 97 Laboratory Results 11/03/21 11/03/21 11/03/21 11:23 11:18 11:14 WBC RBC Hgb Hct MCV MCH MCHC RDW Std Deviation RDW Coeff of Yuly Plt Count MPV Immature Gran % (Auto) Neut % (Auto) Lymph % (Auto) Weston % (Auto) Eos % (Auto) Baso % (Auto) Neut # (Auto) Lymph # (Auto) Weston # (Auto) Eos # (Auto) Baso # (Auto) Immature Gran # (Auto) Absolute Nucleated RBC Nucleated RBC % (auto) Hypochromasia Anisocytosis Ovalocytes PT INR APTT PTT Ratio Sodium Potassium Chloride Carbon Dioxide Anion Gap BUN Creatinine Est Cr Clr Drug Dosing Est GFR ( Amer) Est GFR (Non-Af Amer) BUN/Creatinine Ratio Glucose Calcium Total Bilirubin AST ALT Alkaline Phosphatase Total Protein Albumin Globulin Albumin/Globulin Ratio POC Stool Occult Blood Positive A SARS-CoV-2, RNA, NAAT NEGATIVE Blood Type O Positive Antibody Screen NEGATIVE Crossmatch See Detail 11/03/21 11/03/21 11/03/21 11:14 11:14 11:14 WBC 7.65 RBC 2.44 L Hgb 7.0 L Hct 23.6 L MCV 96.7 MCH 28.7 MCHC 29.7 L RDW Std Deviation 78.4 H RDW Coeff of Yuly 22.2 H Plt Count 244 MPV 11.5 H Immature Gran % (Auto) 0.3 Neut % (Auto) 87.3 Lymph % (Auto) 3.3 Weston % (Auto) 8.1 Eos % (Auto) 1.0 Baso % (Auto) 0.0 Neut # (Auto) 6.68 H Lymph # (Auto) 0.25 L Weston # (Auto) 0.62 H Eos # (Auto) 0.08 Baso # (Auto) 0.00 Immature Gran # (Auto) 0.02 Absolute Nucleated RBC 0.03 H Nucleated RBC % (auto) 0.4 Hypochromasia Present Anisocytosis Present Ovalocytes 1+ PT 35.4 H INR 3.6 H APTT 42.5 H PTT Ratio 1.5 Sodium 137 Potassium 4.5 Chloride 107 Carbon Dioxide 19 L Anion Gap 11 BUN 116 H Creatinine 4.12 H Est Cr Clr Drug Dosing 19.5 Est GFR ( Amer) 15.8 Est GFR (Non-Af Amer) 13.6 BUN/Creatinine Ratio 28.2 H Glucose 136 H Calcium 8.6 Total Bilirubin 1.0 AST 12 L ALT 9 Alkaline Phosphatase 101 Total Protein 6.7 Albumin 3.6 Globulin 3.1 Albumin/Globulin Ratio 1.2 POC Stool Occult Blood SARS-CoV-2, RNA, NAAT Blood Type Antibody Screen Crossmatch Diagnostic Findings Chest X-Ray 11/03/21 11:12 XR chest 1V portable HISTORY: Shortness of breath. COMPARISON: Chest 12/03/2018. FINDINGS: No pneumothorax. Trace bilateral pleural effusions. The heart is enlarged. There is mild central pulmonary vascular congestion without overt edema. Patchy right basilar airspace opacity is noted. Cervical spinal fusion hardware. IMPRESSION: 1. Cardiomegaly with mild pulmonary vascular congestion and trace bilateral pleural effusions. 2. Patchy right basilar densities. This may represent atelectasis or pneumonia. ACT 112: Negative or not required by law. Electronically signed by: Todd Galloway M.D. 11/03/2021 11:39 AM Code Status & VTE Plan Code Status Full code -discussed with the patient at bedside with his present. Supervising Physician Co-Signing Physician Notes Patient was seen and examined at bedside independently. Chart reviewed. Case discussed with Brenda MUJICA and agree with the documentation. In summary, this is a 71 year old male with metastatic bilateral RCC s/p bilateral partial nephrectomy s/p ipilimumab/nivolumab/cabozantinib but unable to tolerate due to side effects and currently on no treatment for the past few months, CKD4, DM2, HTN who presented to the ED for low Hb found in OP lab yesterday. Hb 6.4 yesterday, 7 today in ED. INR 3.6 on coumadin. Reports intermittent black stools for the past month but no hematemesis or hematochezia, no pain. Increasing LE edema along with COLEY for which his torsemide was uptitrated yesterday, also with worsening renal function with Cr now at 4.2 from baseline of 2.3 few months back. Patient had received iv vitamin K, 1 U of PRBC during my encounter. Also had received iv lasix per nephro recommendation and reported decent urine output. Denies any issues currently. AAO, chest clear anteriorly, irregular heart rate, abdomen benign, 3+ edema bilaterally. Admitted to PCU on tele. Monitor H&H, transfuse as indicated. Hold further coumadin. IV PPI. NPO after midnight. GI consult for endoscopy. Further diuretic management per nephro given his DUNG on CKD4 with rapid decline- Per nephro, he might not be a candidate for hemodialysis if no treatment for his metastatic cancer. Resume anticoagulation when okay per GI. Consider palliative care consult but patient did not want to see them currently. Continue empiric rocephin for suspected UTI, follow up urine clx for ABx management. Rest as per note above.
[2021-11-03] MEDS: PANTOprazole 40 MG in DEXTROSE 5% 100 ML IV SCH ×2 (13:26→18:42)
[2021-11-03] MEDS ORDERED: cefTRIAXone SODIUM 1,000 MG in DEXTROSE 5% 50 ML IV SCH (13:45)
[2021-11-03] MEDS ORDERED: FUROSEMIDE 40 MG/4 ML VIAL IV ONE ×2 (14:30→17:10)
[2021-11-03] MEDS ORDERED: CARBOHYDRATES FOR HYPOGLYCEMIA PO PRN (16:08)
[2021-11-03] MEDS ORDERED: GLUCOSE 40% GEL 15 GM TUBE PO PRN (16:08)
[2021-11-03] MEDS ORDERED: DEXTROSE 50% 50 ML SYRINGE IV PRN (16:08)
[2021-11-03] MEDS ORDERED: GLUCAGON FOR INJ 1 MG VIAL SQ PRN (16:08)
[2021-11-03] MEDS ORDERED: ONDANSETRON INJ 2 MG/ML 2 ML VIAL IV PRN (16:08)
[2021-11-03] MEDS ORDERED: GLUCOSE 10 TABS/TUBE PO PRN (16:08)
[2021-11-03] MEDS: traMADol HCL 50 MG TABLET PO PRN (16:51)
[2021-11-03] MEDS: cefTRIAXone SODIUM 2,000 MG in DEXTROSE 5% 50 ML IV SCH (18:18)
[2021-11-03 18:26] LABS: Appearance Urine Cloudy (Clear); Bacteria Urine Automated 2+ (Negative); Bilirubin Urine Negative (Negative); Blood Urine Negative (Negative); Color Urine Yellow; Glucose Urine UA Negative (Negative); Ketones Urine Negative (Negative); Leukocyte Esterase Urine 3+ (Negative); Nitrite Urine Negative (Negative); Protein Urine Negative (Negative); RBC Urine Automated 0-4 /hpf (0-4); Specific Gravity Urine 1.009 (1.000-1.030); Urobilinogen Urine Negative (Negative); WBC Urine Automated >30 /hpf (0-5)
[2021-11-03] MEDS: INSULIN ASPART PER UNIT SC SCH ×2 (18:26→20:41)
[2021-11-03] MEDS: hydrALAZINE TAB 50 MG TAB PO SCH (20:40)
[2021-11-03] MEDS: METOPROLOL SUCC 50MG EXT REL TAB PO SCH (20:40)
[2021-11-03] MEDS: FERROUS SULFATE 325 MG TAB PO SCH (20:40)
[2021-11-03] MEDS: ATORVASTATIN 40 MG TAB PO SCH (20:40)
[2021-11-03] MEDS: FINASTERIDE 5 MG TAB PO SCH (20:40)
[2021-11-03] MEDS: PANTOprazole 40 MG in SYRINGE 0 ML IV SCH (20:40)
[2021-11-03] MEDS: rOPINIRole HCL 2 MG TABLET PO SCH (20:40)
[2021-11-03] MEDS: INSULIN GLARGINE SOLOSTAR 100 UNITS/ML 3 ML PEN SC SCH (20:41)
[2021-11-03 20:57] LABS: Hematocrit (blood only) 23.5 % (42-52); Hemoglobin 7.2 g/dL (14.0-18.0)
[2021-11-03] MEDS: NEOMYCIN/POLYMYX/BACITR OINT 15 GM TUBE EXT SCH (21:30)
[2021-11-04 07:58] LABS: Mean Corpuscular Hemoglobin 29.3 pg (25-34); Mean Corpuscular Hgb Conc 30.8 g/dL (32-36); Mean Corpuscular Volume 95.2 fL (80-100); Mean Platelet Volume 10.3 fL (7.4-10.4); Platelet Count 223 K/uL (130-400); RDW Coefficient of Variation 21.8 % (11.5-14.5); RDW Standard Deviation 74.2 fL (36.4-46.3); Red Blood Count 2.73 M/uL (4.7-6.1); White Blood Count 8.38 K/uL (4.8-10.8)
[2021-11-04 08:11] LABS: INR 1.5 (0.9-1.1); Prothrombin Time 16.1 Seconds (9.0-12.0)
--- NOTE | 2021-11-04 08:20 | Gastrointestinal Consultation ---
Date of Consultation November 04, 2021 Assessment & Plan (1) Anemia: (2) DUNG (acute kidney injury): (3) History of kidney cancer: (4) Dark stools: This is a 71 y/o male w/ h/o mets RCC currently on no tx, rapidly declining renal function, slow drop in HGB over several months, admitted with anemia (HGB 6.4), coagulopathy and worsening renal function (BUN 116/cr 4). INR has been reversed. HGB improved s/p transfusion. Though he complains of dark stools, he only rarely has black stools and is mostly dealing with constipation. No melena or hematochezia. On exam, abd soft, he seems fluid overloaded with lower extremity edema. We are consulted for concern of GIB. Given his presentation suspect his anemia may be multifactorial; would recommend addressing his most pressing issue which seems to be his declining renal function. - Will defer EGD at this time - Appreciate mgmt of his underlying co-morbids by his primary and nephrology teams - Ok to continue PPI - Monitor and document stool output - Consider stool softener for bowel regimen to help with constipation - Diet as per primary team Thank you for allowing us to participate in the care of this patient. Please call with any acute changes, questions or concerns. Please see addendum below with additional recommendation from my supervising physician. Supervising Physician Co-Signing Physician Notes I have personally seen and examined the patient with Crystal Frias PA-C. Her note reflects my exam and findings. I agree with her impression and plan. Needs help with constipation (Miralax or Senekot). No need for EGD at this point. Chente Navarrete M.D. History of Present Illness Reason for Consultation: GIB, black stools, anemia, ? EGD Requesting Physician: Brenda Condon Attending Physician: Isaías Angeles MD History of Present Illness This is a 71 y/o male with h/o metastatic renal cell carcinoma s/p bilateral partial nephrectomy unable to tolerate chemo currently on no tx, CKD4, T2DM, HTN, with rapidly declining renal insufficiency (BUN 116, Cr 4) with volume overload, and slow drop in HGB for the last few months, admitted after being sent to the ER yesterday for labs - HGB 6.4. After Transfusion HGB is 8.0 today. INR was 3.6 which was reversed with Vit K and Coumadin held, is 1.5 today. He's on ABX for suspected UTI. We are consulted for question of GIB w/ black stools and anemia, consider EGD. He reports dark stools x 1 month, is on iron. States stools are mostly dark brown, occasionally darker/black. Has been dealing with some constipation, bowels move daily but can be hard/large with straining. Takes mineral oil with some good relief. Miralax no help before. Has SOB and LE edema. Denies diarrhea, melena, hematochezia, no hematemesis, n/v, abd pain, CP, fever, chills. His HGB has slowly dropped over the last few months from 11. Is macrocytic. History of duodenal ulcer and GIST removed in 2019. Allergies Allergy/AdvReac Type Severity Reaction Status Date / Time No Known Allergies Allergy Mild Verified 07/27/21 08:14 Home Medications Medication Instructions Recorded Confirmed Type atorvastatin 80 mg tablet 80 mg PO HS 12/03/18 11/03/21 History finasteride 5 mg tablet 5 mg PO HS 12/03/18 11/03/21 History hydralazine 50 mg tablet 100 mg PO TID 12/03/18 11/03/21 History insulin aspart U-100 100 unit/mL 0 unit SUBCUT .SLIDING SCALE 12/03/18 11/03/21 History (3 mL) subcutaneous pen (Novolog Flexpen U-100 Insulin aspart) insulin glargine 100 unit/mL (3 30 unit SUBCUT HS 12/03/18 11/03/21 History mL) subcutaneous pen (Basaglar KwikPen U-100 Insulin) omeprazole 20 mg capsule,delayed 20 mg PO QDL 12/03/18 11/03/21 History release tamsulosin 0.4 mg capsule 0.4 mg PO QDL 12/03/18 11/03/21 History calcium carbonate 600 mg calcium 600 mg PO BID 03/18/21 11/03/21 History (1,500 mg) tablet (Calcium) coQ10 (ubiquinol) 200 mg capsule 400 mg PO QAM 03/18/21 11/03/21 History magnesium 200 mg tablet 400 mg PO QAM 03/18/21 11/03/21 History ropinirole 1 mg tablet 2 mg PO HS 03/18/21 11/03/21 History warfarin 2.5 mg tablet See Rx Instructions .ROUTE .COMPLEX 03/18/21 11/03/21 History ferrous sulfate 325 mg (65 mg 325 mg PO BID tab 06/02/21 11/03/21 History iron) tablet (iron) metoprolol succinate 100 mg 150 mg PO BID tab 06/02/21 11/03/21 History tablet,extended release 24 hr ascorbic acid (vitamin C) 500 mg 500 mg PO BID 11/03/21 11/03/21 History tablet (Vitamin C) cholecalciferol (vitamin D3) 25 1,000 unit PO QAM 11/03/21 11/03/21 History mcg (1,000 unit) tablet (Vitamin D3) torsemide 100 mg tablet 100 mg PO QAM 11/03/21 11/03/21 History tramadol 50 mg tablet 50 mg PO Q6H PRN 11/03/21 11/03/21 History zinc sulfate 50 mg zinc (220 mg) 50 mg PO QAM 11/03/21 11/03/21 History tablet Patient History Medical History (Updated 11/04/21 @ 08:21 by KARIS ChuaC) Atrial fibrillation dx 8 months ago; follows with Dr. eFrnandez; on warfarin BPH (benign prostatic hyperplasia) CKD (chronic kidney disease) follows with Dr. Willams DDD (degenerative disc disease) DM type 2 (diabetes mellitus, type 2) GERD (gastroesophageal reflux disease) History of kidney cancer dx 2018 - sx; recurrence w/ mets to lung approx 1 year ago - chemo + radiation History of skin cancer removed Osteoarthritis RLS (restless legs syndrome) Surgical History History of appendectomy History of bowel resection History of cataract surgery LEFT History of cervical spinal surgery limited ROM side to side History of colonoscopy History of lumbar surgery x 3 History of partial nephrectomy BL History of repair of rotator cuff History of tonsillectomy Family History Other No family history of adverse response to anesthesia Social History Smoking Status: Former smoker Tobacco Type: Cigarettes Number of Years Since Quit: 40; Second Hand Exposure: No; Tobacco Cessation Education Requested by Patient: No Hx Alcohol Use: No Hx Substance Use: No Preferred Language: Lao Communication Ability: Effective Visual Impairment: No Limitations Hearing Ability: Normal Still Photographer Required: No Beliefs That Will Affect Care: None marital status: Current Living Situation: Spouse current occupational status: retired How many Children do You have: 2 How many Children do You have Comment: children are local, mainly assists with care as needed. Other Information That Helps Us Care for You: No Feels Safe at Home: Yes during the past year weight has: increased > 10 lbs Assistive Devices: Walker Review of Systems Review of Systems: All systems reviewed & are unremarkable except as noted in HPI & below Physical Exam Constitutional: WD/WN, vitals as above Chronically ill Eyes: PERRL, conjunctivae normal, anicteric sclerae Respiratory: normal respiratory effort + rhonchi bilaterally Cardiovascular: Rate/Rhythm: + tachycardic and + irregularly irregular 3+ edema to lower legs Gastrointestinal (Abdomen): normal bowel sounds, soft, nontender, no hepatosplenomegaly Skin: no rashes, warm and dry Psychiatric: A+Ox3, euthymic affect Results & Data ([facility]) Vital Signs (Past 12 Hours) Vital Signs Temp Pulse Pulse Resp BP BP Pulse Ox 11/04/21 08:00 36.5 C 112 H 18 152/83 H 93 11/04/21 05:41 115/78 11/04/21 04:07 36.4 C L 107 H 18 148/106 H 96 11/04/21 00:18 105 H 11/03/21 23:48 36.5 C 104 H 18 119/80 93 Laboratory Results 11/04/21 11/04/21 11/04/21 Range/Units 07:13 07:13 07:13 WBC 8.38 (4.8-10.8) K/uL RBC 2.73 L (4.7-6.1) M/uL Hgb 8.0 L (14.0-18.0) g/dL Hct 26.0 L (42-52) % MCV 95.2 (80-100) fL MCH 29.3 (25-34) pg MCHC 30.8 L (32-36) g/dL RDW Std Deviation 74.2 H (36.4-46.3) fL RDW Coeff of Yuly 21.8 H (11.5-14.5) % Plt Count 223 (130-400) K/uL MPV 10.3 (7.4-10.4) fL Immature Gran % (Auto) % Neut % (Auto) % Lymph % (Auto) % [place] % (Auto) % Eos % (Auto) % Baso % (Auto) % Neut # (Auto) (1.4-6.5) K/uL Lymph # (Auto) (1.2-3.4) K/uL [place] # (Auto) (0.11-0.59) K/uL Eos # (Auto) (0-0.5) K/uL Baso # (Auto) (0-0.2) K/uL Immature Gran # (Auto) (0.00-0.02) K/uL Absolute Nucleated RBC (0-0) K/uL Nucleated RBC % (auto) % Hypochromasia Anisocytosis Ovalocytes PT 16.1 H (9.0-12.0) Seconds INR 1.5 H (0.9-1.1) APTT (21.0-31.0) Seconds PTT Ratio Sodium Pending (136-145) mmol/L Potassium Pending (3.5-5.1) mmol/L Chloride Pending (98-107) mmol/L Carbon Dioxide Pending (21-32) mmol/L Anion Gap Pending (3-11) BUN Pending (6-23) mg/dl Creatinine Pending (0.6-1.4) mg/dl Est Cr Clr Drug Dosing Pending ml/min Est GFR ( Amer) Pending ml/min Est GFR (Non-Af Amer) Pending ml/min BUN/Creatinine Ratio Pending (10-20) Glucose Pending (70-99(Fasting)) mg/dl POC Glucose (70-99) mg/dl Calcium Pending (8.5-10.1) mg/dl Phosphorus Pending Magnesium Pending Total Bilirubin Pending (0.2-1.0) mg/dl AST Pending (13-39) U/L ALT Pending (7-52) U/L Alkaline Phosphatase Pending (34-104) U/L Total Protein Pending (6.0-8.3) gm/dl Albumin Pending (3.4-5.0) gm/dl Globulin Pending (2.5-4.0) gm/dl Albumin/Globulin Ratio Pending (0.9-2) Urine Color Urine Appearance (Clear) Urine pH (4.5-7.5) Ur Specific [place] (1.000-1.030) Urine Protein (Negative) Urine Glucose (UA) (Negative) Urine Ketones (Negative) Urine Blood (Negative) Urine Nitrite (Negative) Urine Bilirubin (Negative) Urine Urobilinogen (Negative) Ur Leukocyte Esterase (Negative) Urine WBC (Auto) (0-5) /hpf Urine RBC (Auto) (0-4) /hpf U Hyaline Cast (Auto) (0-5) /lpf U Epithel Cells (Auto) (0-5) /lpf Urine Bacteria (Auto) (Negative) Urine Yeast POC Stool Occult Blood (Negative) SARS-CoV-2, RNA, NAAT (NEGATIVE) Blood Type Antibody Screen Crossmatch 11/03/21 11/03/21 11/03/21 Range/Units 20:37 20:03 16:32 WBC (4.8-10.8) K/uL RBC (4.7-6.1) M/uL Hgb 7.2 L (14.0-18.0) g/dL Hct 23.5 L (42-52) % MCV (80-100) fL MCH (25-34) pg MCHC (32-36) g/dL RDW Std Deviation (36.4-46.3) fL RDW Coeff of Yuly (11.5-14.5) % Plt Count (130-400) K/uL MPV (7.4-10.4) fL Immature Gran % (Auto) % Neut % (Auto) % Lymph % (Auto) % Perkins % (Auto) % Eos % (Auto) % Baso % (Auto) % Neut # (Auto) (1.4-6.5) K/uL Lymph # (Auto) (1.2-3.4) K/uL [place] # (Auto) (0.11-0.59) K/uL Eos # (Auto) (0-0.5) K/uL Baso # (Auto) (0-0.2) K/uL Immature Gran # (Auto) (0.00-0.02) K/uL Absolute Nucleated RBC (0-0) K/uL Nucleated RBC % (auto) % Hypochromasia Anisocytosis Ovalocytes PT (9.0-12.0) Seconds INR (0.9-1.1) APTT (21.0-31.0) Seconds PTT Ratio Sodium (136-145) mmol/L Potassium (3.5-5.1) mmol/L Chloride (98-107) mmol/L Carbon Dioxide (21-32) mmol/L Anion Gap (3-11) BUN (6-23) mg/dl Creatinine (0.6-1.4) mg/dl Est Cr Clr Drug Dosing ml/min Est GFR ( Amer) ml/min Est GFR (Non-Af Amer) ml/min BUN/Creatinine Ratio (10-20) Glucose (70-99(Fasting)) mg/dl POC Glucose 176 H 174 H (70-99) mg/dl Calcium (8.5-10.1) mg/dl Phosphorus Magnesium Total Bilirubin (0.2-1.0) mg/dl AST (13-39) U/L ALT (7-52) U/L Alkaline Phosphatase (34-104) U/L Total Protein (6.0-8.3) gm/dl Albumin (3.4-5.0) gm/dl Globulin (2.5-4.0) gm/dl Albumin/Globulin Ratio (0.9-2) Urine Color Urine Appearance (Clear) Urine pH (4.5-7.5) Ur Specific [place] (1.000-1.030) Urine Protein (Negative) Urine Glucose (UA) (Negative) Urine Ketones (Negative) Urine Blood (Negative) Urine Nitrite (Negative) Urine Bilirubin (Negative) Urine Urobilinogen (Negative) Ur Leukocyte Esterase (Negative) Urine WBC (Auto) (0-5) /hpf Urine RBC (Auto) (0-4) /hpf U Hyaline Cast (Auto) (0-5) /lpf U Epithel Cells (Auto) (0-5) /lpf Urine Bacteria (Auto) (Negative) Urine Yeast POC Stool Occult Blood (Negative) SARS-CoV-2, RNA, NAAT (NEGATIVE) Blood Type Antibody Screen Crossmatch 11/03/21 11/03/21 11/03/21 Range/Units 14:38 11:23 11:18 WBC (4.8-10.8) K/uL RBC (4.7-6.1) M/uL Hgb (14.0-18.0) g/dL Hct (42-52) % MCV (80-100) fL MCH (25-34) pg MCHC (32-36) g/dL RDW Std Deviation (36.4-46.3) fL RDW Coeff of Yuly (11.5-14.5) % Plt Count (130-400) K/uL MPV (7.4-10.4) fL Immature Gran % (Auto) % Neut % (Auto) % Lymph % (Auto) % Perkins % (Auto) % Eos % (Auto) % Baso % (Auto) % Neut # (Auto) (1.4-6.5) K/uL Lymph # (Auto) (1.2-3.4) K/uL [place] # (Auto) (0.11-0.59) K/uL Eos # (Auto) (0-0.5) K/uL Baso # (Auto) (0-0.2) K/uL Immature Gran # (Auto) (0.00-0.02) K/uL Absolute Nucleated RBC (0-0) K/uL Nucleated RBC % (auto) % Hypochromasia Anisocytosis Ovalocytes PT (9.0-12.0) Seconds INR (0.9-1.1) APTT (21.0-31.0) Seconds PTT Ratio Sodium (136-145) mmol/L Potassium (3.5-5.1) mmol/L Chloride (98-107) mmol/L Carbon Dioxide (21-32) mmol/L Anion Gap (3-11) BUN (6-23) mg/dl Creatinine (0.6-1.4) mg/dl Est Cr Clr Drug Dosing ml/min Est GFR ( Amer) ml/min Est GFR (Non-Af Amer) ml/min BUN/Creatinine Ratio (10-20) Glucose (70-99(Fasting)) mg/dl POC Glucose (70-99) mg/dl Calcium (8.5-10.1) mg/dl Phosphorus Magnesium Total Bilirubin (0.2-1.0) mg/dl AST (13-39) U/L ALT (7-52) U/L Alkaline Phosphatase (34-104) U/L Total Protein (6.0-8.3) gm/dl Albumin (3.4-5.0) gm/dl Globulin (2.5-4.0) gm/dl Albumin/Globulin Ratio (0.9-2) Urine Color Yellow Urine Appearance Cloudy A (Clear) Urine pH 5.0 (4.5-7.5) Ur Specific [place] 1.009 (1.000-1.030) Urine Protein Negative (Negative) Urine Glucose (UA) Negative (Negative) Urine Ketones Negative (Negative) Urine Blood Negative (Negative) Urine Nitrite Negative (Negative) Urine Bilirubin Negative (Negative) Urine Urobilinogen Negative (Negative) Ur Leukocyte Esterase 3+ H (Negative) Urine WBC (Auto) >30 H (0-5) /hpf Urine RBC (Auto) 0-4 (0-4) /hpf U Hyaline Cast (Auto) 1-5 (0-5) /lpf U Epithel Cells (Auto) 10-20 H (0-5) /lpf Urine Bacteria (Auto) 2+ H (Negative) Urine Yeast Not Reportable POC Stool Occult Blood Positive A (Negative) SARS-CoV-2, RNA, NAAT NEGATIVE (NEGATIVE) Blood Type Antibody Screen Crossmatch 11/03/21 11/03/21 11/03/21 Range/Units 11:14 11:14 11:14 WBC (4.8-10.8) K/uL RBC (4.7-6.1) M/uL Hgb (14.0-18.0) g/dL Hct (42-52) % MCV (80-100) fL MCH (25-34) pg MCHC (32-36) g/dL RDW Std Deviation (36.4-46.3) fL RDW Coeff of Yuly (11.5-14.5) % Plt Count (130-400) K/uL MPV (7.4-10.4) fL Immature Gran % (Auto) % Neut % (Auto) % Lymph % (Auto) % [place] % (Auto) % Eos % (Auto) % Baso % (Auto) % Neut # (Auto) (1.4-6.5) K/uL Lymph # (Auto) (1.2-3.4) K/uL [place] # (Auto) (0.11-0.59) K/uL Eos # (Auto) (0-0.5) K/uL Baso # (Auto) (0-0.2) K/uL Immature Gran # (Auto) (0.00-0.02) K/uL Absolute Nucleated RBC (0-0) K/uL Nucleated RBC % (auto) % Hypochromasia Anisocytosis Ovalocytes PT 35.4 H (9.0-12.0) Seconds INR 3.6 H (0.9-1.1) APTT 42.5 H (21.0-31.0) Seconds PTT Ratio 1.5 Sodium 137 (136-145) mmol/L Potassium 4.5 (3.5-5.1) mmol/L Chloride 107 (98-107) mmol/L Carbon Dioxide 19 L (21-32) mmol/L Anion Gap 11 (3-11) BUN 116 H (6-23) mg/dl Creatinine 4.12 H (0.6-1.4) mg/dl Est Cr Clr Drug Dosing 19.5 ml/min Est GFR ( Amer) 15.8 ml/min Est GFR (Non-Af Amer) 13.6 ml/min BUN/Creatinine Ratio 28.2 H (10-20) Glucose 136 H (70-99(Fasting)) mg/dl POC Glucose (70-99) mg/dl Calcium 8.6 (8.5-10.1) mg/dl Phosphorus Magnesium Total Bilirubin 1.0 (0.2-1.0) mg/dl AST 12 L (13-39) U/L ALT 9 (7-52) U/L Alkaline Phosphatase 101 (34-104) U/L Total Protein 6.7 (6.0-8.3) gm/dl Albumin 3.6 (3.4-5.0) gm/dl Globulin 3.1 (2.5-4.0) gm/dl Albumin/Globulin Ratio 1.2 (0.9-2) Urine Color Urine Appearance (Clear) Urine pH (4.5-7.5) Ur Specific [place] (1.000-1.030) Urine Protein (Negative) Urine Glucose (UA) (Negative) Urine Ketones (Negative) Urine Blood (Negative) Urine Nitrite (Negative) Urine Bilirubin (Negative) Urine Urobilinogen (Negative) Ur Leukocyte Esterase (Negative) Urine WBC (Auto) (0-5) /hpf Urine RBC (Auto) (0-4) /hpf U Hyaline Cast (Auto) (0-5) /lpf U Epithel Cells (Auto) (0-5) /lpf Urine Bacteria (Auto) (Negative) Urine Yeast POC Stool Occult Blood (Negative) SARS-CoV-2, RNA, NAAT (NEGATIVE) Blood Type O Positive Antibody Screen NEGATIVE Crossmatch See Detail 11/03/21 Range/Units 11:14 WBC 7.65 (4.8-10.8) K/uL RBC 2.44 L (4.7-6.1) M/uL Hgb 7.0 L (14.0-18.0) g/dL Hct 23.6 L (42-52) % MCV 96.7 (80-100) fL MCH 28.7 (25-34) pg MCHC 29.7 L (32-36) g/dL RDW Std Deviation 78.4 H (36.4-46.3) fL RDW Coeff of Yuly 22.2 H (11.5-14.5) % Plt Count 244 (130-400) K/uL MPV 11.5 H (7.4-10.4) fL Immature Gran % (Auto) 0.3 % Neut % (Auto) 87.3 % Lymph % (Auto) 3.3 % [place] % (Auto) 8.1 % Eos % (Auto) 1.0 % Baso % (Auto) 0.0 % Neut # (Auto) 6.68 H (1.4-6.5) K/uL Lymph # (Auto) 0.25 L (1.2-3.4) K/uL [place] # (Auto) 0.62 H (0.11-0.59) K/uL Eos # (Auto) 0.08 (0-0.5) K/uL Baso # (Auto) 0.00 (0-0.2) K/uL Immature Gran # (Auto) 0.02 (0.00-0.02) K/uL Absolute Nucleated RBC 0.03 H (0-0) K/uL Nucleated RBC % (auto) 0.4 % Hypochromasia Present Anisocytosis Present Ovalocytes 1+ PT (9.0-12.0) Seconds INR (0.9-1.1) APTT (21.0-31.0) Seconds PTT Ratio Sodium (136-145) mmol/L Potassium (3.5-5.1) mmol/L Chloride (98-107) mmol/L Carbon Dioxide (21-32) mmol/L Anion Gap (3-11) BUN (6-23) mg/dl Creatinine (0.6-1.4) mg/dl Est Cr Clr Drug Dosing ml/min Est GFR ( Amer) ml/min Est GFR (Non-Af Amer) ml/min BUN/Creatinine Ratio (10-20) Glucose (70-99(Fasting)) mg/dl POC Glucose (70-99) mg/dl Calcium (8.5-10.1) mg/dl Phosphorus Magnesium Total Bilirubin (0.2-1.0) mg/dl AST (13-39) U/L ALT (7-52) U/L Alkaline Phosphatase (34-104) U/L Total Protein (6.0-8.3) gm/dl Albumin (3.4-5.0) gm/dl Globulin (2.5-4.0) gm/dl Albumin/Globulin Ratio (0.9-2) Urine Color Urine Appearance (Clear) Urine pH (4.5-7.5) Ur Specific [place] (1.000-1.030) Urine Protein (Negative) Urine Glucose (UA) (Negative) Urine Ketones (Negative) Urine Blood (Negative) Urine Nitrite (Negative) Urine Bilirubin (Negative) Urine Urobilinogen (Negative) Ur Leukocyte Esterase (Negative) Urine WBC (Auto) (0-5) /hpf Urine RBC (Auto) (0-4) /hpf U Hyaline Cast (Auto) (0-5) /lpf U Epithel Cells (Auto) (0-5) /lpf Urine Bacteria (Auto) (Negative) Urine Yeast POC Stool Occult Blood (Negative) SARS-CoV-2, RNA, NAAT (NEGATIVE) Blood Type Antibody Screen Crossmatch Diagnostic Findings CXR: 1. Cardiomegaly with mild pulmonary vascular congestion and trace bilateral pleural effusions. 2. Patchy right basilar densities. This may represent atelectasis or pneumonia. (1) Anemia Anemia type: unspecified type Qualified Code(s): D64.9 - Anemia, unspecified
[2021-11-04 08:28] LABS: Albumin Globulin Ratio 1.2 (0.9-2); Albumin Level 3.4 gm/dl (3.4-5.0); BUN Creatinine Ratio 28.9 (10-20); Calcium 8.7 mg/dl (8.5-10.1); Creatinine Clr Calc Pharmacy 18.9 ml/min; Est GFR (African American) 15.8 ml/min; Est GFR (Non-African American) 13.6 ml/min; Globulin 2.9 gm/dl (2.5-4.0); Magnesium 1.8 mg/dl (1.7-2.4); Phosphorus 4.5 mg/dl (2.5-4.9); Potassium 4.2 mmol/L (3.5-5.1); Total Protein 6.3 gm/dl (6.0-8.3)
[2021-11-04] MEDS: FERROUS SULFATE 325 MG TAB PO SCH ×2 (08:56→20:39)
[2021-11-04] MEDS: FUROSEMIDE 40 MG/4 ML VIAL IV SCH ×2 (08:57→17:07)
[2021-11-04] MEDS: PANTOprazole 40 MG in SYRINGE 0 ML IV SCH ×2 (08:57→20:36)
[2021-11-04] MEDS: hydrALAZINE TAB 50 MG TAB PO SCH ×3 (08:57→20:36)
[2021-11-04] MEDS: METOPROLOL SUCC 50MG EXT REL TAB PO SCH ×2 (08:57→20:40)
[2021-11-04] MEDS: MAGNESIUM OXIDE 400 MG TAB PO SCH (08:57)
[2021-11-04] MEDS: NEOMYCIN/POLYMYX/BACITR OINT 15 GM TUBE EXT SCH ×2 (08:58→20:38)
[2021-11-04] MEDS ORDERED: NON-FORMULARY MEDICATION (Coq10 (Ubiquinol) 200 mg Capsule) PO SCH (09:00)
[2021-11-04] MEDS: INSULIN ASPART PER UNIT SC SCH ×4 (09:10→20:56)
--- NOTE | 2021-11-04 09:20 | Nephrology Consultation ---
Date of Consultation November 04, 2021 Assessment & Plan (1) Acute on chronic renal failure: progressive CKD this year as renal cell cancer has progressed > creatinine had increased to new baseline of 3.3 in July and September 2021. Then on check in October creatinine was up to 4.2 in setting of marked volume overload. -diurese aggressively >consideration of dialysis is challenging here given his challenging cancer care > was for f/u visit w/ oncology on November 23 > consider contacting them; no ind ication for urgent dialysis but cannot rule out need this admission -daily bmp -continue to avoid nephrotoxins (2) Volume overload: with his history of tyrosine kinase inhibitor use, pt is at risk for nephrotic syndrome/proteinuria; however only 214 mg proteinuria at OP visit 11/02 now that he's off TKI (was more in 1900 mg daily range last fall) -increase lasix to 60 IV tid starting tomorrow am; gave 60 mg IV x 1 this evening instead of 40 mg -daily bmp >>DAILY standing weights requested -low Na diet -will lower hydralazine which can worsen edema -1.5L fluid limit ordered (3) Symptomatic anemia: -improved after pRBC; monitoring and w/u per primary service; not a candidate for erythropoeitin d/t cancer dx (4) History of kidney cancer: -agree w/ ongoing discussion of hospice; consider approaching his OP oncologist if not done History of Present Illness Reason for Consultation: DUNG on CKD Requesting Physician: Dr Hooper Attending Physician: Isaías Angeles MD History of Present Illness 71 y/o M s/p BL partial nephrectomy for RCC w/ pulmonary mets whom I'm asked to see for DUNG on CKD was sent to ER yesterday for admission d/t hgb 6.4; found also to have elevated creatinine at 4.2. PMH includes progressive and microalbuminuric CKD4 w/ creatinine baseline in spring 2021 at 3.3, DM, a fib on AC, duodenal ulcer/GIST s/p excision 2018. Follows w/ Dr Willams in CKD clinic and seen 11/02 w/ worsening fluid overload > pt had one dose of increased torsemide before labs above from that visit posted and advised to come to ER. Dr Willams advised pt and that dialysis is not an option here unless further treatment is planned for the cancer. Pt has been having tarry stooks intermittently past month. GI has evaluated him. pt declines palliative eval at this time. Pt at admission received 1 unit pRBC, started on IV lasix 60 mg IV x 1 then 40 mg IV bid after discussion with me; GI consult placed. Empiric Rochephin for concern at UTI. Today hgb is 8; creat 4.2; 1.9L UOP since arrival charted. Patient feels stable, not unwell. he ambulated around the unit with PT and a walker this AM. some mild exertoinal dyspnea. no palpitations, no cough. ongoing very poor appetite, some of which he thinks is d/t constipation. denies new/worrisome voiding sx. edema still present, severe, not much change per pt. Allergies Allergy/AdvReac Type Severity Reaction Status Date / Time No Known Allergies Allergy Mild Verified 07/27/21 08:14 Home Medications Medication Instructions Recorded Confirmed Type atorvastatin 80 mg tablet 80 mg PO HS 12/03/18 11/03/21 History finasteride 5 mg tablet 5 mg PO HS 12/03/18 11/03/21 History hydralazine 50 mg tablet 100 mg PO TID 12/03/18 11/03/21 History insulin aspart U-100 100 unit/mL 0 unit SUBCUT .SLIDING SCALE 12/03/18 11/03/21 History (3 mL) subcutaneous pen (Novolog Flexpen U-100 Insulin aspart) insulin glargine 100 unit/mL (3 30 unit SUBCUT HS 12/03/18 11/03/21 History mL) subcutaneous pen (Basaglar KwikPen U-100 Insulin) omeprazole 20 mg capsule,delayed 20 mg PO QDL 12/03/18 11/03/21 History release tamsulosin 0.4 mg capsule 0.4 mg PO QDL 12/03/18 11/03/21 History calcium carbonate 600 mg calcium 600 mg PO BID 03/18/21 11/03/21 History (1,500 mg) tablet (Calcium) coQ10 (ubiquinol) 200 mg capsule 400 mg PO QAM 03/18/21 11/03/21 History magnesium 200 mg tablet 400 mg PO QAM 03/18/21 11/03/21 History ropinirole 1 mg tablet 2 mg PO HS 03/18/21 11/03/21 History warfarin 2.5 mg tablet See Rx Instructions .ROUTE .COMPLEX 03/18/21 11/03/21 History ferrous sulfate 325 mg (65 mg 325 mg PO BID tab 06/02/21 11/03/21 History iron) tablet (iron) metoprolol succinate 100 mg 150 mg PO BID tab 06/02/21 11/03/21 History tablet,extended release 24 hr ascorbic acid (vitamin C) 500 mg 500 mg PO BID 11/03/21 11/03/21 History tablet (Vitamin C) cholecalciferol (vitamin D3) 25 1,000 unit PO QAM 11/03/21 11/03/21 History mcg (1,000 unit) tablet (Vitamin D3) torsemide 100 mg tablet 100 mg PO QAM 11/03/21 11/03/21 History tramadol 50 mg tablet 50 mg PO Q6H PRN 11/03/21 11/03/21 History zinc sulfate 50 mg zinc (220 mg) 50 mg PO QAM 11/03/21 11/03/21 History tablet Patient History Medical History (Updated 11/04/21 @ 17:05 by Meri Poole MD, PhD) Atrial fibrillation dx 8 months ago; follows with Dr. Fernandez; on warfarin BPH (benign prostatic hyperplasia) CKD (chronic kidney disease) follows with Dr. Willams DDD (degenerative disc disease) DM type 2 (diabetes mellitus, type 2) GERD (gastroesophageal reflux disease) History of kidney cancer dx 2018 - sx; recurrence w/ mets to lung approx 1 year ago - chemo + radiation History of skin cancer removed Osteoarthritis RLS (restless legs syndrome) Surgical History History of appendectomy History of bowel resection History of cataract surgery LEFT History of cervical spinal surgery limited ROM side to side History of colonoscopy History of lumbar surgery x 3 History of partial nephrectomy BL History of repair of rotator cuff History of tonsillectomy Family History Other No family history of adverse response to anesthesia Social History Smoking Status: Former smoker Tobacco Type: Cigarettes Number of Years Since Quit: 40; Second Hand Exposure: No; Tobacco Cessation Education Requested by Patient: No Hx Alcohol Use: No Hx Substance Use: No Preferred Language: Thai Communication Ability: Effective Visual Impairment: No Limitations Hearing Ability: Normal Tariff Expert Required: No Beliefs That Will Affect Care: None marital status: Current Living Situation: Spouse current occupational status: retired How many Children do You have: 2 How many Children do You have Comment: children are local, mainly assists with care as needed. Other Information That Helps Us Care for You: No Feels Safe at Home: Yes during the past year weight has: increased > 10 lbs Assistive Devices: Walker Assistive Devices Comment: Doesn't need to use walker but has one Review of Systems Review of Systems: All systems reviewed & are unremarkable except as noted in HPI & below Physical Exam Constitutional: well developed and well nourished Eyes: EOM intact bilaterally ENMT: Ears: no external ear abnormality Nose: no external nose abnormality Mouth: + dry oral mucous membranes Neck: no nuchal rigidity Respiratory: normal respiratory effort Auscultation: + diminished lung sounds Cardiovascular: Rate/Rhythm: regular rhythm and + tachycardic Extremities: + edema (3+BLE) Gastrointestinal (Abdomen): Inspection/Auscultation: normal bowel sounds Percussion/Palpation: abdomen soft; abdomen nontender Musculoskeletal: Extremities: strength 5/5 throughout Skin: no rashes, warm and dry Neurologic: white, fluent speech, no tremor Psychiatric: Orientation: oriented x 3 Results & Data ([facility]) Vital Signs (Past 12 Hours) Vital Signs Temp Pulse Pulse Resp BP BP Pulse Ox 11/04/21 08:00 36.5 C 112 H 18 152/83 H 93 11/04/21 05:41 115/78 11/04/21 04:07 36.4 C L 107 H 18 148/106 H 96 11/04/21 00:18 105 H 11/03/21 23:48 36.5 C 104 H 18 119/80 93 Laboratory Results 11/04/21 07:13 11/04/21 07:13
[2021-11-04] MEDS ORDERED: POLYETHYLENE (MIRALAX) 17 GM PACK PO SCH (10:45)
[2021-11-04] MEDS: TAMSULOSIN HCL 0.4 MG CAP PO SCH (12:48)
[2021-11-04] MEDS: SENNA 8.6 MG TAB PO SCH (13:04)
[2021-11-04] MEDS ORDERED: MAGNESIUM HYDROXIDE SUSP 30 ML UDC PO PRN (14:29)
[2021-11-04] MEDS: traMADol HCL 50 MG TABLET PO PRN (14:35)
--- NOTE | 2021-11-04 15:26 | Hospitalist Progress Note ---
Date of Service November 04, 2021 Assessment & Plan (1) Anemia: Plan: -Admitted to [facility] with telemetry -Concern for GI source of bleeding with dark tarry stools x1 month, patient reports that he is also on an iron tablet -Guaiac is positive -Hemoglobin is 7.0 on admission, was 6.4 as an outpatient day prior admission -Consulted GI for possible EGD, holding coumadin, reversing with Vit K (as INR was supratherapeutic) -Started on Protonix drip, will switch to bolus daily to eliminate fluids in the setting of volume overload, most likely is a slow bleed as the patient reports being constipated, with last BM AM of admission which was formed. 11/04 -patient seen by GI, no plan for endoscopy at this time After being transfused, hemoglobin is 8.0 Patient continues to complain of constipation, had a bowel movement today (2) CKD (chronic kidney disease): (3) History of kidney cancer: Plan: -Consult nephrology, discussed with Dr. Armenta via [place] text -IV Lasix 60 mg x 1 after blood transfusion on admission, then use IV lasix 40 mg BID, reassess and nephro to help determine when to resume torsemide - Follow am Cr/BUN On admission elevated at 4.12 and nephrology aware - Previous notes indicated the pt would not be a good candidate for dialysis, may need to readdress goals of care during this hospitalization -Currently is not on chemotherapy, previously was suggested he go on hospice/ palliative care, appears that he has changed his mind in the past few months, also today wants full code. (4) UTI (urinary tract infection): Plan: - Noted UA from outpt results appears to be infected, check UA and follow urine culture here - Cont. ceftriaxone IV - No wbc, afebrile - Pt admits to burning with urination (5) DM type 2 (diabetes mellitus, type 2): Plan: - Continue HS long acting - Cont ISS with accuchecks achs - Last a1c was around 7, improved compared to previously (6) Atrial fibrillation: Plan: - coumadin on hold on admission, monitor INR daily, received Vit K on admission -in regards to possible GI bleed - Currently rate controlled - Follow with Dr. Landon as outpt DVT ppx: - teds, scds, hold coumadin in the setting of possible GI bleed CODE: Full Dispo: From home, likely to remain in the hospital x 1-2 days Admission and Anticipated Discharge Date Admission Date: November 03, 2021 Subjective Patient seen in follow-up of anemia, DUNG on CKD, in the setting of renal cell carcinoma with metastases, A. fib on Coumadin Patient is currently lying in bed, in no acute distress, family at the bedside Denies fevers, chills, chest pain, shortness of breath Reports weakness, lower back pain, and restless legs Also reports constipation Seen by GI earlier, no plan for endoscopy at this time Review of Systems Review of Systems: All systems reviewed & are unremarkable except as noted in Subjective Physical Exam Physical Exam: General: awake, alert, no apparent distress Head: Normocephalic, atraumatic ENT: PERRL, EOMI, no pharyngeal exudate, mucous membranes moist Chest: on room air, diminished breath sounds at bases Cardiac: irregularly irregular, rates in low 100s, no murmur, no JVD, normal peripheral pulses, good capillary refill Abdominal: NABS x 4 quadrants, soft, nondistended, nontender to palpation, no rebound or guarding Extremities: + pitting peripheral edema up above the knee, + Right knee abrasion, no erythema, calves nontender to palpation Psych: Normal mood and affect Neuro: AAO x 3, strength intact bilaterally and rated 5/5, no motor deficits, speech is clear, no peripheral sensory deficits Results & Data Results & Data ([facility]) Vital Signs (Past 12 Hours) Vital Signs Temp Pulse Resp BP BP Pulse Ox Pulse Ox 11/04/21 11:46 36.6 C 117 H 18 141/85 H 97 11/04/21 11:03 96 11/04/21 08:00 36.5 C 112 H 18 152/83 H 93 11/04/21 05:41 115/78 11/04/21 04:07 36.4 C L 107 H 18 148/106 H 96 Laboratory Results 11/04/21 11/04/21 11/04/21 Range/Units 11:41 07:13 07:13 WBC (4.8-10.8) K/uL RBC (4.7-6.1) M/uL Hgb (14.0-18.0) g/dL Hct (42-52) % MCV (80-100) fL MCH (25-34) pg MCHC (32-36) g/dL RDW Std Deviation (36.4-46.3) fL RDW Coeff of Yuly (11.5-14.5) % Plt Count (130-400) K/uL MPV (7.4-10.4) fL PT 16.1 H (9.0-12.0) Seconds INR 1.5 H (0.9-1.1) Sodium 137 (136-145) mmol/L Potassium 4.2 (3.5-5.1) mmol/L Chloride 107 (98-107) mmol/L Carbon Dioxide 18 L (21-32) mmol/L Anion Gap 12 H (3-11) BUN 119 H (6-23) mg/dl Creatinine 4.12 H (0.6-1.4) mg/dl Est Cr Clr Drug Dosing 18.9 ml/min Est GFR ( Amer) 15.8 ml/min Est GFR (Non-Af Amer) 13.6 ml/min BUN/Creatinine Ratio 28.9 H (10-20) Glucose 153 H (70-99(Fasting)) mg/dl POC Glucose 173 H (70-99) mg/dl Calcium 8.7 (8.5-10.1) mg/dl Phosphorus 4.5 (2.5-4.9) mg/dl Magnesium 1.8 (1.7-2.4) mg/dl Total Bilirubin 1.0 (0.2-1.0) mg/dl AST 10 L (13-39) U/L ALT 7 (7-52) U/L Alkaline Phosphatase 96 (34-104) U/L Total Protein 6.3 (6.0-8.3) gm/dl Albumin 3.4 (3.4-5.0) gm/dl Globulin 2.9 (2.5-4.0) gm/dl Albumin/Globulin Ratio 1.2 (0.9-2) Urine Color Urine Appearance (Clear) Urine pH (4.5-7.5) Ur Specific [place] (1.000-1.030) Urine Protein (Negative) Urine Glucose (UA) (Negative) Urine Ketones (Negative) Urine Blood (Negative) Urine Nitrite (Negative) Urine Bilirubin (Negative) Urine Urobilinogen (Negative) Ur Leukocyte Esterase (Negative) Urine WBC (Auto) (0-5) /hpf Urine RBC (Auto) (0-4) /hpf U Hyaline Cast (Auto) (0-5) /lpf U Epithel Cells (Auto) (0-5) /lpf Urine Bacteria (Auto) (Negative) Urine Yeast Blood Type Antibody Screen Crossmatch 11/04/21 11/03/21 11/03/21 Range/Units 07:13 20:37 20:03 WBC 8.38 (4.8-10.8) K/uL RBC 2.73 L (4.7-6.1) M/uL Hgb 8.0 L 7.2 L (14.0-18.0) g/dL Hct 26.0 L 23.5 L (42-52) % MCV 95.2 (80-100) fL MCH 29.3 (25-34) pg MCHC 30.8 L (32-36) g/dL RDW Std Deviation 74.2 H (36.4-46.3) fL RDW Coeff of Yuly 21.8 H (11.5-14.5) % Plt Count 223 (130-400) K/uL MPV 10.3 (7.4-10.4) fL PT (9.0-12.0) Seconds INR (0.9-1.1) Sodium (136-145) mmol/L Potassium (3.5-5.1) mmol/L Chloride (98-107) mmol/L Carbon Dioxide (21-32) mmol/L Anion Gap (3-11) BUN (6-23) mg/dl Creatinine (0.6-1.4) mg/dl Est Cr Clr Drug Dosing ml/min Est GFR ( Amer) ml/min Est GFR (Non-Af Amer) ml/min BUN/Creatinine Ratio (10-20) Glucose (70-99(Fasting)) mg/dl POC Glucose 176 H (70-99) mg/dl Calcium (8.5-10.1) mg/dl Phosphorus (2.5-4.9) mg/dl Magnesium (1.7-2.4) mg/dl Total Bilirubin (0.2-1.0) mg/dl AST (13-39) U/L ALT (7-52) U/L Alkaline Phosphatase (34-104) U/L Total Protein (6.0-8.3) gm/dl Albumin (3.4-5.0) gm/dl Globulin (2.5-4.0) gm/dl Albumin/Globulin Ratio (0.9-2) Urine Color Urine Appearance (Clear) Urine pH (4.5-7.5) Ur Specific [place] (1.000-1.030) Urine Protein (Negative) Urine Glucose (UA) (Negative) Urine Ketones (Negative) Urine Blood (Negative) Urine Nitrite (Negative) Urine Bilirubin (Negative) Urine Urobilinogen (Negative) Ur Leukocyte Esterase (Negative) Urine WBC (Auto) (0-5) /hpf Urine RBC (Auto) (0-4) /hpf U Hyaline Cast (Auto) (0-5) /lpf U Epithel Cells (Auto) (0-5) /lpf Urine Bacteria (Auto) (Negative) Urine Yeast Blood Type Antibody Screen Crossmatch 11/03/21 11/03/21 11/03/21 Range/Units 16:32 14:38 11:14 WBC (4.8-10.8) K/uL RBC (4.7-6.1) M/uL Hgb (14.0-18.0) g/dL Hct (42-52) % MCV (80-100) fL MCH (25-34) pg MCHC (32-36) g/dL RDW Std Deviation (36.4-46.3) fL RDW Coeff of Yuly (11.5-14.5) % Plt Count (130-400) K/uL MPV (7.4-10.4) fL PT (9.0-12.0) Seconds INR (0.9-1.1) Sodium (136-145) mmol/L Potassium (3.5-5.1) mmol/L Chloride (98-107) mmol/L Carbon Dioxide (21-32) mmol/L Anion Gap (3-11) BUN (6-23) mg/dl Creatinine (0.6-1.4) mg/dl Est Cr Clr Drug Dosing ml/min Est GFR ( Amer) ml/min Est GFR (Non-Af Amer) ml/min BUN/Creatinine Ratio (10-20) Glucose (70-99(Fasting)) mg/dl POC Glucose 174 H (70-99) mg/dl Calcium (8.5-10.1) mg/dl Phosphorus (2.5-4.9) mg/dl Magnesium (1.7-2.4) mg/dl Total Bilirubin (0.2-1.0) mg/dl AST (13-39) U/L ALT (7-52) U/L Alkaline Phosphatase (34-104) U/L Total Protein (6.0-8.3) gm/dl Albumin (3.4-5.0) gm/dl Globulin (2.5-4.0) gm/dl Albumin/Globulin Ratio (0.9-2) Urine Color Yellow Urine Appearance Cloudy A (Clear) Urine pH 5.0 (4.5-7.5) Ur Specific [place] 1.009 (1.000-1.030) Urine Protein Negative (Negative) Urine Glucose (UA) Negative (Negative) Urine Ketones Negative (Negative) Urine Blood Negative (Negative) Urine Nitrite Negative (Negative) Urine Bilirubin Negative (Negative) Urine Urobilinogen Negative (Negative) Ur Leukocyte Esterase 3+ H (Negative) Urine WBC (Auto) >30 H (0-5) /hpf Urine RBC (Auto) 0-4 (0-4) /hpf U Hyaline Cast (Auto) 1-5 (0-5) /lpf U Epithel Cells (Auto) 10-20 H (0-5) /lpf Urine Bacteria (Auto) 2+ H (Negative) Urine Yeast Not Reportable Blood Type O Positive Antibody Screen NEGATIVE Crossmatch See Detail Medications Administered Current Inpatient Medications Atorvastatin Calcium (Atorvastatin 40 Mg Tab) 80 mg PO HS HERBER Stop: 12/03/21 20:59 Last Admin: 11/03/21 20:40 Dose: 80 mg Documented by: Dextrose (Dextrose 50% 50 Ml Syringe) 25 - 50 ml IV UD PRN; Protocol PRN Reason: Hypoglycemia Protocol Stop: 12/03/21 16:07 Docusate Sodium (Docusate Sodium 100 Mg Cap) 100 mg PO BID HERBER Stop: 12/04/21 20:59 Ferrous Sulfate (Ferrous Sulfate 325 Mg Tab) 325 mg PO BID HERBER Stop: 12/03/21 20:59 Last Admin: 11/04/21 08:56 Dose: 325 mg Documented by: Finasteride (Finasteride 5 Mg Tab) 5 mg PO HS HERBER Stop: 12/03/21 20:59 Last Admin: 11/03/21 20:40 Dose: 5 mg Documented by: Furosemide (Furosemide 40 Mg/4 Ml Vial) 40 mg IV BID17 HERBER Stop: 12/04/21 08:59 Last Admin: 11/04/21 08:57 Dose: 40 mg Documented by: Glucagon (Glucagon For Inj 1 Mg Vial) 1 mg SQ UD PRN; Protocol PRN Reason: Hypoglycemia Protocol Stop: 12/03/21 16:07 Glucose (Glucose 10 Tabs/Tube) 4 - 8 tabs PO UD PRN; Protocol PRN Reason: Hypoglycemia Protocol Stop: 12/03/21 16:07 Glucose (Glucose 40% Gel 15 Gm Tube) 15 - 30 gm PO UD PRN; Protocol PRN Reason: Hypoglycemia Protocol Stop: 12/03/21 16:07 Hydralazine HCl (Hydralazine Tab 50 Mg Tab) 100 mg PO TID HERBER Stop: 12/03/21 20:59 Last Admin: 11/04/21 14:28 Dose: 100 mg Documented by: Pantoprazole Sodium 40 mg/ (Syringe) 10 mls @ 5 mls/min IV BID HERBER Stop: 12/03/21 20:59 Last Admin: 11/04/21 08:57 Dose: 5 mls/min Documented by: Ceftriaxone Sodium 2,000 mg/ (Dextrose) 70 mls @ 140 mls/hr IV Q24H HERBER Stop: 11/13/21 16:59 Last Infusion: 11/03/21 19:14 Dose: Infused Documented by: Insulin Aspart (Insulin Aspart Per Unit) 0 units SC ACHS HERBER Stop: 12/03/21 16:29 Last Admin: 11/04/21 12:04 Dose: 4 units Documented by: Insulin Glargine (Insulin Glargine Solostar 100 Units/Ml 3 Ml Pen) 15 units SC HS [facility] Stop: 12/03/21 20:59 Last Admin: 11/03/21 20:41 Dose: 15 units Documented by: Magnesium Hydroxide (Magnesium Hydroxide Susp 30 Ml Udc) 30 ml PO DAILY PRN PRN Reason: Constipation Stop: 12/04/21 14:28 Magnesium Oxide (Magnesium Oxide 400 Mg Tab) 400 mg PO QAM HERBER Stop: 12/04/21 08:59 Last Admin: 11/04/21 08:57 Dose: 400 mg Documented by: Metoprolol Succinate (Metoprolol Succ 50mg Ext Rel Tab) 150 mg PO BID [facility] Stop: 12/03/21 20:59 Last Admin: 11/04/21 08:57 Dose: 150 mg Documented by: Miscellaneous (Carbohydrates For Hypoglycemia ) 15 - 30 gm PO UD PRN PRN Reason: Hypoglycemia Protocol Stop: 12/03/21 16:07 Neomycin/Polymyxin/Bacitracin (Neomycin/Polymyx/Bacitr Oint 15 Gm Tube) 1 appln EXT BID HERBER Stop: 12/03/21 21:29 Last Admin: 11/04/21 08:58 Dose: 1 appln Documented by: Ondansetron HCl (Ondansetron Inj 2 Mg/Ml 2 Ml Vial) 4 mg IV Q4H PRN PRN Reason: Nausea And Vomiting Stop: 12/03/21 16:07 Ropinirole HCl (Ropinirole Hcl 2 Mg Tablet) 2 mg PO HS [facility] Stop: 12/03/21 20:59 Last Admin: 11/03/21 20:40 Dose: 2 mg Documented by: Sennosides (Senna 8.6 Mg Tab) 8.6 mg PO QAM [facility] Stop: 12/04/21 10:44 Last Admin: 11/04/21 13:04 Dose: 8.6 mg Documented by: Tamsulosin HCl (Tamsulosin Hcl 0.4 Mg Cap) 0.4 mg PO QDL [facility] Stop: 12/04/21 11:29 Last Admin: 11/04/21 12:48 Dose: 0.4 mg Documented by: Tramadol HCl (Tramadol Hcl 50 Mg Tablet) 50 mg PO Q6H PRN PRN Reason: Pain Stop: 12/03/21 16:07 Last Admin: 11/04/21 14:35 Dose: 50 mg Documented by:
[2021-11-04] MEDS ORDERED: rOPINIRole HCL 1 MG TABLET PO ONE (16:36)
[2021-11-04] MEDS ORDERED: ACETAMINOPHEN 325 MG TAB PO PRN (16:37)
[2021-11-04] MEDS: LIDOCAINE 5% 1 PATCH TD SCH (17:26)
[2021-11-04] MEDS: cefTRIAXone SODIUM 2,000 MG in DEXTROSE 5% 50 ML IV SCH (17:26)
[2021-11-04] MEDS ORDERED: FUROSEMIDE INJ 20 MG/2 ML VIAL IV ONE (17:30)
--- NOTE | 2021-11-04 18:07 | Electrocardiogram Report ---
Test Reason : Blood Pressure : / mmHG Vent. Rate : 097 BPM Atrial Rate : 357 BPM P-R Int : 000 ms QRS Dur : 082 ms QT Int : 348 ms P-R-T Axes : 000 051 054 degrees QTc Int : 441 ms Atrial fibrillation Abnormal ECG When compared with ECG of 03-DEC-2018 11:22, Atrial fibrillation has replaced Sinus rhythm Confirmed by Jsoe Guaman ([id number]) on 11/04/2021 6:07:29 PM Referred By: REFERRED SELF Confirmed By:Jose Guaman
[2021-11-04] MEDS: FINASTERIDE 5 MG TAB PO SCH (20:37)
[2021-11-04] MEDS: DOCUSATE SODIUM 100 MG CAP PO SCH (20:37)
[2021-11-04] MEDS: rOPINIRole HCL 2 MG TABLET PO SCH (20:38)
[2021-11-04] MEDS: ATORVASTATIN 40 MG TAB PO SCH (20:39)
[2021-11-04] MEDS: INSULIN GLARGINE SOLOSTAR 100 UNITS/ML 3 ML PEN SC SCH (20:54)
[2021-11-05] MEDS: FUROSEMIDE INJ 20 MG/2 ML VIAL IV SCH ×3 (05:30→17:29)
[2021-11-05 06:55] LABS: Hematocrit (blood only) 24.8 % (42-52); Hemoglobin 7.6 g/dL (14.0-18.0); Mean Corpuscular Hemoglobin 29.5 pg (25-34); Mean Corpuscular Hgb Conc 30.6 g/dL (32-36); Mean Corpuscular Volume 96.1 fL (80-100); Mean Platelet Volume 10.2 fL (7.4-10.4); Platelet Count 202 K/uL (130-400); RDW Coefficient of Variation 21.5 % (11.5-14.5); RDW Standard Deviation 74.9 fL (36.4-46.3); Red Blood Count 2.58 M/uL (4.7-6.1); White Blood Count 7.52 K/uL (4.8-10.8)
[2021-11-05 07:16] LABS: Albumin Globulin Ratio 1.1 (0.9-2); Albumin Level 3.3 gm/dl (3.4-5.0); BUN Creatinine Ratio 26.5 (10-20); Bilirubin,Total 0.9 mg/dl (0.2-1.0); Calcium 8.6 mg/dl (8.5-10.1); Creatinine Clr Calc Pharmacy 17.5 ml/min; Est GFR (African American) 14.5 ml/min; Est GFR (Non-African American) 12.5 ml/min; Globulin 2.9 gm/dl (2.5-4.0); Magnesium 1.8 mg/dl (1.7-2.4); Phosphorus 4.5 mg/dl (2.5-4.9); Total Protein 6.2 gm/dl (6.0-8.3)
[2021-11-05 08:02] LABS: INR 1.4 (0.9-1.1); Prothrombin Time 14.5 Seconds (9.0-12.0)
[2021-11-05] MEDS: INSULIN ASPART PER UNIT SC SCH ×4 (08:07→20:16)
[2021-11-05] MEDS: NEOMYCIN/POLYMYX/BACITR OINT 15 GM TUBE EXT SCH ×2 (08:23→20:06)
[2021-11-05] MEDS: SENNA 8.6 MG TAB PO SCH (08:24)
[2021-11-05] MEDS: DOCUSATE SODIUM 100 MG CAP PO SCH ×2 (08:24→20:09)
[2021-11-05] MEDS: METOPROLOL SUCC 50MG EXT REL TAB PO SCH ×2 (08:24→20:06)
[2021-11-05] MEDS: FERROUS SULFATE 325 MG TAB PO SCH ×2 (08:24→20:08)
[2021-11-05] MEDS: hydrALAZINE TAB 50 MG TAB PO SCH ×2 (08:25→20:08)
[2021-11-05] MEDS: LIDOCAINE 5% 1 PATCH TD SCH (08:25)
[2021-11-05] MEDS: MAGNESIUM OXIDE 400 MG TAB PO SCH (08:25)
[2021-11-05] MEDS: PANTOprazole 40 MG in SYRINGE 0 ML IV SCH ×2 (08:26→20:05)
--- NOTE | 2021-11-05 09:46 | Nephrology Progress Note ---
Date of Service November 05, 2021 Assessment & Plan (1) Acute on chronic renal failure: Plan: progressive CKD this year as renal cell cancer has progressed > creatinine had increased to new baseline of 3.3 in July and September 2021. Then on check in October creatinine was up to 4.2 in setting of marked volume overload. -diurese aggressively >consideration of dialysis is challenging here given his challenging cancer care > was for f/u visit w/ oncology on November 23 > consider contacting them; no indication for urgent dialysis but cannot rule out need this admission -Bump in Scr - but his LYtes are wnl and he is diuresing well. - daily bmp -continue to avoid nephrotoxins - No Changes today, Patient is diuresing well. (2) Volume overload: Plan: with his history of tyrosine kinase inhibitor use, pt is at risk for nephrotic syndrome/proteinuria; however only 214 mg proteinuria at OP visit 11/02 now that he's off TKI (was more in 1900 mg daily range last fall) - Continue on lasix to 60 IV tid starting today am. -daily bmp >>DAILY standing weights requested -low Na diet lower hydralazine which can worsen edema -1.5L fluid limit (3) Symptomatic anemia: Plan: -improved after pRBC; monitoring and w/u per primary service; not a candidate for erythropoeitin d/t cancer dx (4) History of kidney cancer: Plan: -agree w/ ongoing discussion of hospice; consider approaching his OP oncologist if not done Admission and Anticipated Discharge Date Admission Date: November 03, 2021 Subjective Patient seen in follow-up of anemia, DUNG on CKD, in the setting of renal cell carcinoma with metastases, A. fib on Coumadin Comfortable, baseline pedal edema, in no acute distress. Review of Systems Review of Systems: All systems reviewed & are unremarkable except as noted in Subjective Physical Exam Physical Exam: Constitutional:L well developed and well nourished Eyes: EOM intact bilater ally ENMT: Ears: no external ear abnormality N ose: no external n ose abnormality M outh: + dry oral m ucous membranes Neck: no nuchal rigidity Respiratory: normal respiratory effort Auscultat ion: + diminished lung sounds Cardiovascular:L Rate/Rhythm: regul ar rhythm and + ta chycardic Extremi ties: + edema (3+B LE) Gastrointestinal ( Abdomen): Inspection/Auscult ation: normal brien l sounds Percussi on/Palpation: abdo men soft; abdomen nontender Musculoskeletal: Extremities: stren gth 5/5 throughout . 1+ bilateral lauren ma Skin: no rashes, warm an d dry Neurologic: white, fluent speech , no tremor Psychiatric: Orientation: [facility] x 3 Results & Data ([facility]) Vital Signs (Past 12 Hours) Vital Signs Temp Pulse Pulse Pulse Resp BP Pulse Ox 11/05/21 07:27 36.5 C 108 H 17 125/70 95 11/05/21 04:36 36.5 C 105 H 18 130/85 97 11/04/21 23:18 114 H 11/04/21 23:17 36.7 C 115 H 20 131/81 95 Laboratory Results 11/05/21 06:32 11/05/21 06:32
--- NOTE | 2021-11-05 11:30 | Hospitalist Progress Note ---
Date of Service November 05, 2021 Assessment & Plan (1) Anemia: Plan: -Admitted to [facility] with telemetry -Concern for GI source of bleeding with dark tarry stools x1 month, patient reports that he is also on an iron tablet -Guaiac is positive -Hemoglobin is 7.0 on admission, was 6.4 as an outpatient day prior admission -Consulted GI for possible EGD, holding coumadin, reversing with Vit K (as INR was supratherapeutic) -Started on Protonix drip, will switch to bolus daily to eliminate fluids in the setting of volume overload, most likely is a slow bleed as the patient reports being constipated, with last BM AM of admission which was formed. 11/04 -patient seen by GI, no plan for endoscopy at this time After being transfused, hemoglobin is 8.0 Patient continues to complain of constipation, had a bowel movement today 11/05 - current Hgb 7.6, cont. to monitor H&H (2) CKD (chronic kidney disease): (3) History of kidney cancer: Plan: -Consult nephrology, discussed with Dr. Armenta via [place] text -IV Lasix 60 mg x 1 after blood transfusion on admission - Now on lasix IV 60 TID , diuresing well - nephrology to help determine when to resume torsemide - Follow am Cr/BUN On admission elevated at 4.12 and nephrology aware - Previous notes indicated the pt would not be a good candidate for dialysis, may need to readdress goals of care during this hospitalization - Currently is not on chemotherapy, previously was suggested he go on hospice/palliative care, appears that he has changed his mind in the past few months, also today wants full code. (4) UTI (urinary tract infection): Plan: - Noted UA from outpt results appears to be infected, check UA and follow urine culture here - Cont. ceftriaxone IV - No wbc, afebrile - Pt admits to burning with urination - ucultx - mixed kraig, repeat UA (5) DM type 2 (diabetes mellitus, type 2): Plan: - Continue HS long acting - Cont ISS with accuchecks achs - Last a1c was around 7, improved compared to previously (6) Atrial fibrillation: Plan: - coumadin on hold on admission, monitor INR daily, received Vit K on admission -in regards to possible GI bleed - Currently rate controlled - Follow with Dr. Landon as outpt DVT ppx: - teds, scds, hold coumadin in the setting of possible GI bleed CODE: Full Dispo: From home, likely to remain in the hospital x 1-2 days Admission and Anticipated Discharge Date Admission Date: November 03, 2021 Subjective Patient seen in follow-up of anemia, DUNG on CKD, in the setting of renal cell carcinoma with metastases, A. fib on Coumadin Patient is currently lying in bed, in no acute distress, family at the bedside Denies fevers, chills, chest pain, shortness of breath Reports weakness, lower back pain, and restless legs Review of Systems Review of Systems: All systems reviewed & are unremarkable except as noted in Subjective Physical Exam Physical Exam: General: awake, alert, no apparent distress Head: Normocephalic, atraumatic ENT: PERRL, EOMI, no pharyngeal exudate, mucous membranes moist Chest: on room air, diminished breath sounds at bases Cardiac: irregularly irregular, rates in low 100s, no murmur, no JVD, normal peripheral pulses, good capillary refill Abdominal: NABS x 4 quadrants, soft, nondistended, nontender to palpation, no rebound or guarding Extremities: + 2-3 pitting peripheral edema up above the knee, + Right knee abrasion, no erythema, calves nontender to palpation Psych: Normal mood and affect Neuro: AAO x 3, strength intact bilaterally and rated 5/5, no motor deficits, speech is clear, no peripheral sensory deficits Results & Data Results & Data ([facility]) Vital Signs (Past 12 Hours) Vital Signs Temp Pulse Pulse Pulse Resp BP Pulse Ox 11/05/21 08:00 104 H 14 11/05/21 07:27 36.5 C 108 H 17 125/70 95 11/05/21 04:36 36.5 C 105 H 18 130/85 97 Laboratory Results 11/05/21 11/05/21 11/05/21 Range/Units 07:25 06:32 06:32 WBC (4.8-10.8) K/uL RBC (4.7-6.1) M/uL Hgb (14.0-18.0) g/dL Hct (42-52) % MCV (80-100) fL MCH (25-34) pg MCHC (32-36) g/dL RDW Std Deviation (36.4-46.3) fL RDW Coeff of Yuly (11.5-14.5) % Plt Count (130-400) K/uL MPV (7.4-10.4) fL PT 14.5 H (9.0-12.0) Seconds INR 1.4 H (0.9-1.1) Sodium 136 (136-145) mmol/L Potassium 4.0 (3.5-5.1) mmol/L Chloride 104 (98-107) mmol/L Carbon Dioxide 19 L (21-32) mmol/L Anion Gap 13 H (3-11) BUN 117 H (6-23) mg/dl Creatinine 4.42 H D (0.6-1.4) mg/dl Est Cr Clr Drug Dosing 17.5 ml/min Est GFR ( Amer) 14.5 ml/min Est GFR (Non-Af Amer) 12.5 ml/min BUN/Creatinine Ratio 26.5 H (10-20) Glucose 176 H (70-99(Fasting)) mg/dl POC Glucose 195 H (70-99) mg/dl Calcium 8.6 (8.5-10.1) mg/dl Phosphorus 4.5 (2.5-4.9) mg/dl Magnesium 1.8 (1.7-2.4) mg/dl Total Bilirubin 0.9 (0.2-1.0) mg/dl AST 11 L (13-39) U/L ALT 9 (7-52) U/L Alkaline Phosphatase 97 (34-104) U/L Total Protein 6.2 (6.0-8.3) gm/dl Albumin 3.3 L (3.4-5.0) gm/dl Globulin 2.9 (2.5-4.0) gm/dl Albumin/Globulin Ratio 1.1 (0.9-2) 11/05/21 11/04/21 11/04/21 Range/Units 06:32 20:52 16:32 WBC 7.52 (4.8-10.8) K/uL RBC 2.58 L (4.7-6.1) M/uL Hgb 7.6 L (14.0-18.0) g/dL Hct 24.8 L (42-52) % MCV 96.1 (80-100) fL MCH 29.5 (25-34) pg MCHC 30.6 L (32-36) g/dL RDW Std Deviation 74.9 H (36.4-46.3) fL RDW Coeff of Yuly 21.5 H (11.5-14.5) % Plt Count 202 (130-400) K/uL MPV 10.2 (7.4-10.4) fL PT (9.0-12.0) Seconds INR (0.9-1.1) Sodium (136-145) mmol/L Potassium (3.5-5.1) mmol/L Chloride (98-107) mmol/L Carbon Dioxide (21-32) mmol/L Anion Gap (3-11) BUN (6-23) mg/dl Creatinine (0.6-1.4) mg/dl Est Cr Clr Drug Dosing ml/min Est GFR ( Amer) ml/min Est GFR (Non-Af Amer) ml/min BUN/Creatinine Ratio (10-20) Glucose (70-99(Fasting)) mg/dl POC Glucose 212 H 199 H (70-99) mg/dl Calcium (8.5-10.1) mg/dl Phosphorus (2.5-4.9) mg/dl Magnesium (1.7-2.4) mg/dl Total Bilirubin (0.2-1.0) mg/dl AST (13-39) U/L ALT (7-52) U/L Alkaline Phosphatase (34-104) U/L Total Protein (6.0-8.3) gm/dl Albumin (3.4-5.0) gm/dl Globulin (2.5-4.0) gm/dl Albumin/Globulin Ratio (0.9-2) // Range/Units 11:41 WBC (4.8-10.8) K/uL RBC (4.7-6.1) M/uL Hgb (14.0-18.0) g/dL Hct (42-52) % MCV (80-100) fL MCH (25-34) pg MCHC (32-36) g/dL RDW Std Deviation (36.4-46.3) fL RDW Coeff of Yuly (11.5-14.5) % Plt Count (130-400) K/uL MPV (7.4-10.4) fL PT (9.0-12.0) Seconds INR (0.9-1.1) Sodium (136-145) mmol/L Potassium (3.5-5.1) mmol/L Chloride (98-107) mmol/L Carbon Dioxide (21-32) mmol/L Anion Gap (3-11) BUN (6-23) mg/dl Creatinine (0.6-1.4) mg/dl Est Cr Clr Drug Dosing ml/min Est GFR ( Amer) ml/min Est GFR (Non-Af Amer) ml/min BUN/Creatinine Ratio (10-20) Glucose (70-99(Fasting)) mg/dl POC Glucose 173 H (70-99) mg/dl Calcium (8.5-10.1) mg/dl Phosphorus (2.5-4.9) mg/dl Magnesium (1.7-2.4) mg/dl Total Bilirubin (0.2-1.0) mg/dl AST (13-39) U/L ALT (7-52) U/L Alkaline Phosphatase (34-104) U/L Total Protein (6.0-8.3) gm/dl Albumin (3.4-5.0) gm/dl Globulin (2.5-4.0) gm/dl Albumin/Globulin Ratio (0.9-2) Medications Administered Current Inpatient Medications Acetaminophen (Acetaminophen 325 Mg Tab) 650 mg PO Q4H PRN PRN Reason: Pain Stop: 12/04/21 16:36 Atorvastatin Calcium (Atorvastatin 40 Mg Tab) 80 mg PO HS HERBER Stop: 12/03/21 20:59 Last Admin: 11/04/21 20:39 Dose: 80 mg Documented by: Dextrose (Dextrose 50% 50 Ml Syringe) 25 - 50 ml IV UD PRN; Protocol PRN Reason: Hypoglycemia Protocol Stop: 12/03/21 16:07 Docusate Sodium (Docusate Sodium 100 Mg Cap) 100 mg PO BID HERBER Stop: 12/04/21 20:59 Last Admin: 11/05/21 08:24 Dose: 100 mg Documented by: Ferrous Sulfate (Ferrous Sulfate 325 Mg Tab) 325 mg PO BID [facility]BER Stop: 12/03/21 20:59 Last Admin: 11/05/21 08:24 Dose: 325 mg Documented by: Finasteride (Finasteride 5 Mg Tab) 5 mg PO HS HERBER Stop: 12/03/21 20:59 Last Admin: 11/04/21 20:37 Dose: 5 mg Documented by: Furosemide (Furosemide Inj 20 Mg/2 Ml Vial) 60 mg IV 0600,1200,1800 [facility] Stop: 12/05/21 05:59 Last Admin: 11/05/21 05:30 Dose: 60 mg Documented by: Glucagon (Glucagon For Inj 1 Mg Vial) 1 mg SQ UD PRN; Protocol PRN Reason: Hypoglycemia Protocol Stop: 12/03/21 16:07 Glucose (Glucose 10 Tabs/Tube) 4 - 8 tabs PO UD PRN; Protocol PRN Reason: Hypoglycemia Protocol Stop: 12/03/21 16:07 Glucose (Glucose 40% Gel 15 Gm Tube) 15 - 30 gm PO UD PRN; Protocol PRN Reason: Hypoglycemia Protocol Stop: 12/03/21 16:07 Hydralazine HCl (Hydralazine Tab 50 Mg Tab) 50 mg PO BID [facility]BER Stop: 12/04/21 20:59 Last Admin: 11/05/21 08:25 Dose: 50 mg Documented by: Pantoprazole Sodium 40 mg/ (Syringe) 10 mls @ 5 mls/min IV BID [facility]BER Stop: 12/03/21 20:59 Last Admin: 11/05/21 08:26 Dose: 5 mls/min Documented by: Ceftriaxone Sodium 2,000 mg/ (Dextrose) 70 mls @ 140 mls/hr IV Q24H [facility] Stop: 11/13/21 16:59 Last Infusion: 11/04/21 18:13 Dose: Infused Documented by: Insulin Aspart (Insulin Aspart Per Unit) 0 units SC ACHS HERBER Stop: 12/03/21 16:29 Last Admin: 11/05/21 08:07 Dose: 5 units Documented by: Insulin Glargine (Insulin Glargine Solostar 100 Units/Ml 3 Ml Pen) 15 units SC HS [facility]BER Stop: 12/03/21 20:59 Last Admin: 11/04/21 20:54 Dose: 15 units Documented by: Lidocaine (Lidocaine 5% 1 Patch) 1 patch TD QAM [facility]BER Stop: 12/04/21 16:44 Last Admin: 11/05/21 08:25 Dose: Not Given Documented by: Magnesium Hydroxide (Magnesium Hydroxide Susp 30 Ml Udc) 30 ml PO DAILY PRN PRN Reason: Constipation Stop: 12/04/21 14:28 Magnesium Oxide (Magnesium Oxide 400 Mg Tab) 400 mg PO QAM [facility] Stop: 12/04/21 08:59 Last Admin: 11/05/21 08:25 Dose: 400 mg Documented by: Metoprolol Succinate (Metoprolol Succ 50mg Ext Rel Tab) 150 mg PO BID [facility] Stop: 12/03/21 20:59 Last Admin: 11/05/21 08:24 Dose: 150 mg Documented by: Miscellaneous (Carbohydrates For Hypoglycemia ) 15 - 30 gm PO UD PRN PRN Reason: Hypoglycemia Protocol Stop: 12/03/21 16:07 Miscellaneous (Remove Lidoderm Patch) 1 ea N/A DAILY@2100 [facility] Stop: 12/04/21 20:59 Last Admin: 11/04/21 20:37 Dose: 1 ea Documented by: Neomycin/Polymyxin/Bacitracin (Neomycin/Polymyx/Bacitr Oint 15 Gm Tube) 1 appln EXT BID [facility] Stop: 12/03/21 21:29 Last Admin: 11/05/21 08:23 Dose: 1 appln Documented by: Ondansetron HCl (Ondansetron Inj 2 Mg/Ml 2 Ml Vial) 4 mg IV Q4H PRN PRN Reason: Nausea And Vomiting Stop: 12/03/21 16:07 Ropinirole HCl (Ropinirole Hcl 2 Mg Tablet) 2 mg PO HS [facility] Stop: 12/03/21 20:59 Last Admin: 11/04/21 20:38 Dose: 2 mg Documented by: Sennosides (Senna 8.6 Mg Tab) 8.6 mg PO [facility] Stop: 12/04/21 10:44 Last Admin: 11/05/21 08:24 Dose: 8.6 mg Documented by: Tamsulosin HCl (Tamsulosin Hcl 0.4 Mg Cap) 0.4 mg PO QDL [facility] Stop: 12/04/21 11:29 Last Admin: 11/04/21 12:48 Dose: 0.4 mg Documented by: Tramadol HCl (Tramadol Hcl 50 Mg Tablet) 50 mg PO Q6H PRN PRN Reason: Pain Stop: 12/03/21 16:07 Last Admin: 11/04/21 14:35 Dose: 50 mg Documented by:
[2021-11-05] MEDS: TAMSULOSIN HCL 0.4 MG CAP PO SCH (12:28)
[2021-11-05 16:55] LABS: Appearance Urine Clear (Clear); Bacteria Urine Automated Negative (Negative); Bilirubin Urine Negative (Negative); Blood Urine Negative (Negative); Color Urine Yellow; Glucose Urine UA Negative (Negative); Ketones Urine Negative (Negative); Leukocyte Esterase Urine 3+ (Negative); Nitrite Urine Negative (Negative); Protein Urine Negative (Negative); RBC Urine Automated 0-4 /hpf (0-4); Urobilinogen Urine Negative (Negative); WBC Urine Automated >30 /hpf (0-5); pH Urine 5.5 (4.5-7.5)
[2021-11-05] MEDS: cefTRIAXone SODIUM 2,000 MG in DEXTROSE 5% 50 ML IV SCH (17:29)
[2021-11-05] MEDS: ATORVASTATIN 40 MG TAB PO SCH (20:07)
[2021-11-05] MEDS: rOPINIRole HCL 2 MG TABLET PO SCH (20:09)
[2021-11-05] MEDS: FINASTERIDE 5 MG TAB PO SCH (20:09)
[2021-11-05] MEDS: INSULIN GLARGINE SOLOSTAR 100 UNITS/ML 3 ML PEN SC SCH (20:13)
[2021-11-06] MEDS: traMADol HCL 50 MG TABLET PO PRN (03:09)
[2021-11-06] MEDS: FUROSEMIDE INJ 20 MG/2 ML VIAL IV SCH ×3 (05:30→17:39)
[2021-11-06 06:07] LABS: Hematocrit (blood only) 24.1 % (42-52); Hemoglobin 7.3 g/dL (14.0-18.0); Mean Corpuscular Hemoglobin 29.3 pg (25-34); Mean Corpuscular Hgb Conc 30.3 g/dL (32-36); Mean Corpuscular Volume 96.8 fL (80-100); Mean Platelet Volume 10.7 fL (7.4-10.4); Nucleated RBC # (auto) 0.02 K/uL (0-0); Nucleated RBC % (auto) 0.3 %; Platelet Count 203 K/uL (130-400); RDW Standard Deviation 74.3 fL (36.4-46.3); Red Blood Count 2.49 M/uL (4.7-6.1); White Blood Count 6.73 K/uL (4.8-10.8)
[2021-11-06 06:15] LABS: INR 1.4 (0.9-1.1); Prothrombin Time 14.8 Seconds (9.0-12.0)
[2021-11-06 06:26] LABS: Albumin Globulin Ratio 1.1 (0.9-2); Albumin Level 3.1 gm/dl (3.4-5.0); BUN Creatinine Ratio 28.1 (10-20); Bilirubin,Total 0.7 mg/dl (0.2-1.0); Calcium 8.4 mg/dl (8.5-10.1); Creatinine Clr Calc Pharmacy 18.9 ml/min; Est GFR (African American) 15.9 ml/min; Est GFR (Non-African American) 13.7 ml/min; Globulin 2.7 gm/dl (2.5-4.0); Phosphorus 4.1 mg/dl (2.5-4.9); Potassium 3.9 mmol/L (3.5-5.1); Total Protein 5.8 gm/dl (6.0-8.3)
--- NOTE | 2021-11-06 07:22 | Hospitalist Progress Note ---
Date of Service November 06, 2021 Assessment & Plan (1) Anemia: Plan: -Admitted to [facility] with telemetry -Concern for GI source of bleeding with dark tarry stools x1 month, patient reports that he is also on an iron tablet -Guaiac is positive -Hemoglobin is 7.0 on admission, was 6.4 as an outpatient day prior admission -Consulted GI for possible EGD, holding coumadin, reversing with Vit K (as INR was supratherapeutic) -Started on Protonix drip, will switch to bolus daily to eliminate fluids in the setting of volume overload, most likely is a slow bleed as the patient reports being constipated, with last BM AM of admission which was formed. 11/04 -patient seen by GI, no plan for endoscopy at this time After being transfused, hemoglobin is 8.0 Patient continues to complain of constipation, had a bowel movement today 11/05 - current Hgb 7.6, cont. to monitor H&H 11/06 H&H 7.3, will repeat at 5pm Pt is having BMs, denies any blood in the stool or any abnormal stools (2) CKD (chronic kidney disease): (3) History of kidney cancer: Plan: - follows with oncology in [place] -- Currently is not on chemotherapy, previously was suggested he go on hospice/palliative care, appears that he has changed his mind in the past few months, also today wants full code. - -Consult nephrology, discussed with Dr. Armenta via [place] text -IV Lasix 60 mg x 1 after blood transfusion on admission - Now on lasix IV 60 TID , diuresing well - nephrology to help determine when to resume torsemide - Follow am Cr/BUN On admission elevated at 4.12 and nephrology aware - Previous notes indicated the pt would not be a good candidate for dialysis, may need to readdress goals of care during this hospitalization (4) UTI (urinary tract infection): Plan: - Noted UA from outpt results appears to be infected, check UA and follow urine culture here - Cont. ceftriaxone IV - No wbc, afebrile - Pt admits to burning with urination - ucultx - mixed kraig, repeat UA (5) DM type 2 (diabetes mellitus, type 2): Plan: - Continue HS long acting - Cont ISS with accuchecks achs - Last a1c was around 7, improved compared to previously (6) Atrial fibrillation: Plan: - coumadin on hold on admission, monitor INR daily, received Vit K on admission -in regards to possible GI bleed - Currently rate controlled - Follow with Dr. Landon as outpt DVT ppx: - teds, scds, hold coumadin in the setting of possible GI bleed CODE: Full Dispo: From home, likely to remain in the hospital x 1-2 days Admission and Anticipated Discharge Date Admission Date: November 03, 2021 Subjective Patient seen in follow-up of anemia, DUNG on CKD, in the setting of renal cell carcinoma with metastases, A. fib on Coumadin Patient is currently walking around the room, family present Denies fevers, chills, chest pain, shortness of breath Reports weakness, lower back pain, and restless legs Review of Systems Review of Systems: All systems reviewed & are unremarkable except as noted in Subjective Physical Exam Physical Exam: General: awake, alert, no apparent distress Head: Normocephalic, atraumatic ENT: PERRL, EOMI, no pharyngeal exudate, mucous membranes moist Chest: on room air, diminished breath sounds at bases Cardiac: irregularly irregular, rates in low 100s, no murmur, no JVD, normal peripheral pulses, good capillary refill Abdominal: NABS x 4 quadrants, soft, nondistended, nontender to palpation, no rebound or guarding Extremities: + 2-3 pitting peripheral edema + Right knee abrasion, no erythema, calves nontender to palpation Psych: Normal mood and affect Neuro: AAO x 3, strength intact bilaterally and rated 5/5, no motor deficits, speech is clear, no peripheral sensory deficits Results & Data Results & Data ([facility]) Vital Signs (Past 12 Hours) Vital Signs Temp Pulse Pulse Resp BP Pulse Ox 11/06/21 05:06 36.5 C 96 H 18 124/60 92 11/06/21 01:35 90 11/06/21 00:55 36.5 C 100 H 16 117/64 92 11/05/21 21:00 36.4 C L 102 H 18 116/66 94 Laboratory Results 11/06/21 11/06/21 11/06/21 Range/Units 05:30 05:30 05:30 WBC 6.73 (4.8-10.8) K/uL RBC 2.49 L (4.7-6.1) M/uL Hgb 7.3 L (14.0-18.0) g/dL Hct 24.1 L (42-52) % MCV 96.8 (80-100) fL MCH 29.3 (25-34) pg MCHC 30.3 L (32-36) g/dL RDW Std Deviation 74.3 H (36.4-46.3) fL RDW Coeff of Yuly 21.0 H (11.5-14.5) % Plt Count 203 (130-400) K/uL MPV 10.7 H (7.4-10.4) fL Absolute Nucleated RBC 0.02 H (0-0) K/uL Nucleated RBC % (auto) 0.3 % PT 14.8 H (9.0-12.0) Seconds INR 1.4 H (0.9-1.1) Sodium 135 L (136-145) mmol/L Potassium 3.9 (3.5-5.1) mmol/L Chloride 103 (98-107) mmol/L Carbon Dioxide 22 (21-32) mmol/L Anion Gap 10 (3-11) BUN 115 H (6-23) mg/dl Creatinine 4.09 H D (0.6-1.4) mg/dl Est Cr Clr Drug Dosing 18.9 ml/min Est GFR ( Amer) 15.9 ml/min Est GFR (Non-Af Amer) 13.7 ml/min BUN/Creatinine Ratio 28.1 H (10-20) Glucose 167 H (70-99(Fasting)) mg/dl POC Glucose (70-99) mg/dl Calcium 8.4 L (8.5-10.1) mg/dl Phosphorus 4.1 (2.5-4.9) mg/dl Magnesium 2.0 (1.7-2.4) mg/dl Total Bilirubin 0.7 (0.2-1.0) mg/dl AST 10 L (13-39) U/L ALT 8 (7-52) U/L Alkaline Phosphatase 100 (34-104) U/L Total Protein 5.8 L (6.0-8.3) gm/dl Albumin 3.1 L (3.4-5.0) gm/dl Globulin 2.7 (2.5-4.0) gm/dl Albumin/Globulin Ratio 1.1 (0.9-2) Urine Color Urine Appearance (Clear) Urine pH (4.5-7.5) Ur Specific [place] (1.000-1.030) Urine Protein (Negative) Urine Glucose (UA) (Negative) Urine Ketones (Negative) Urine Blood (Negative) Urine Nitrite (Negative) Urine Bilirubin (Negative) Urine Urobilinogen (Negative) Ur Leukocyte Esterase (Negative) Urine WBC (Auto) (0-5) /hpf Urine RBC (Auto) (0-4) /hpf U Hyaline Cast (Auto) (0-5) /lpf U Epithel Cells (Auto) (0-5) /lpf Urine Bacteria (Auto) (Negative) 11/05/21 11/05/21 11/05/21 Range/Units 20:11 16:18 16:05 WBC (4.8-10.8) K/uL RBC (4.7-6.1) M/uL Hgb (14.0-18.0) g/dL Hct (42-52) % MCV (80-100) fL MCH (25-34) pg MCHC (32-36) g/dL RDW Std Deviation (36.4-46.3) fL RDW Coeff of Yuly (11.5-14.5) % Plt Count (130-400) K/uL MPV (7.4-10.4) fL Absolute Nucleated RBC (0-0) K/uL Nucleated RBC % (auto) % PT (9.0-12.0) Seconds INR (0.9-1.1) Sodium (136-145) mmol/L Potassium (3.5-5.1) mmol/L Chloride (98-107) mmol/L Carbon Dioxide (21-32) mmol/L Anion Gap (3-11) BUN (6-23) mg/dl Creatinine (0.6-1.4) mg/dl Est Cr Clr Drug Dosing ml/min Est GFR ( Amer) ml/min Est GFR (Non-Af Amer) ml/min BUN/Creatinine Ratio (10-20) Glucose (70-99(Fasting)) mg/dl POC Glucose 195 H 181 H (70-99) mg/dl Calcium (8.5-10.1) mg/dl Phosphorus (2.5-4.9) mg/dl Magnesium (1.7-2.4) mg/dl Total Bilirubin (0.2-1.0) mg/dl AST (13-39) U/L ALT (7-52) U/L Alkaline Phosphatase (34-104) U/L Total Protein (6.0-8.3) gm/dl Albumin (3.4-5.0) gm/dl Globulin (2.5-4.0) gm/dl Albumin/Globulin Ratio (0.9-2) Urine Color Yellow Urine Appearance Clear (Clear) Urine pH 5.5 (4.5-7.5) Ur Specific [place] 1.010 (1.000-1.030) Urine Protein Negative (Negative) Urine Glucose (UA) Negative (Negative) Urine Ketones Negative (Negative) Urine Blood Negative (Negative) Urine Nitrite Negative (Negative) Urine Bilirubin Negative (Negative) Urine Urobilinogen Negative (Negative) Ur Leukocyte Esterase 3+ H (Negative) Urine WBC (Auto) >30 H (0-5) /hpf Urine RBC (Auto) 0-4 (0-4) /hpf U Hyaline Cast (Auto) 1-5 (0-5) /lpf U Epithel Cells (Auto) 5-10 H (0-5) /lpf Urine Bacteria (Auto) Negative (Negative) 11/05/21 11/05/21 11/05/21 Range/Units 11:26 07:25 06:32 WBC (4.8-10.8) K/uL RBC (4.7-6.1) M/uL Hgb (14.0-18.0) g/dL Hct (42-52) % MCV (80-100) fL MCH (25-34) pg MCHC (32-36) g/dL RDW Std Deviation (36.4-46.3) fL RDW Coeff of Yuly (11.5-14.5) % Plt Count (130-400) K/uL MPV (7.4-10.4) fL Absolute Nucleated RBC (0-0) K/uL Nucleated RBC % (auto) % PT 14.5 H (9.0-12.0) Seconds INR 1.4 H (0.9-1.1) Sodium (136-145) mmol/L Potassium (3.5-5.1) mmol/L Chloride (98-107) mmol/L Carbon Dioxide (21-32) mmol/L Anion Gap (3-11) BUN (6-23) mg/dl Creatinine (0.6-1.4) mg/dl Est Cr Clr Drug Dosing ml/min Est GFR ( Amer) ml/min Est GFR (Non-Af Amer) ml/min BUN/Creatinine Ratio (10-20) Glucose (70-99(Fasting)) mg/dl POC Glucose 223 H 195 H (70-99) mg/dl Calcium (8.5-10.1) mg/dl Phosphorus (2.5-4.9) mg/dl Magnesium (1.7-2.4) mg/dl Total Bilirubin (0.2-1.0) mg/dl AST (13-39) U/L ALT (7-52) U/L Alkaline Phosphatase (34-104) U/L Total Protein (6.0-8.3) gm/dl Albumin (3.4-5.0) gm/dl Globulin (2.5-4.0) gm/dl Albumin/Globulin Ratio (0.9-2) Urine Color Urine Appearance (Clear) Urine pH (4.5-7.5) Ur Specific [place] (1.000-1.030) Urine Protein (Negative) Urine Glucose (UA) (Negative) Urine Ketones (Negative) Urine Blood (Negative) Urine Nitrite (Negative) Urine Bilirubin (Negative) Urine Urobilinogen (Negative) Ur Leukocyte Esterase (Negative) Urine WBC (Auto) (0-5) /hpf Urine RBC (Auto) (0-4) /hpf U Hyaline Cast (Auto) (0-5) /lpf U Epithel Cells (Auto) (0-5) /lpf Urine Bacteria (Auto) (Negative) Medications Administered Current Inpatient Medications Acetaminophen (Acetaminophen 325 Mg Tab) 650 mg PO Q4H PRN PRN Reason: Pain Stop: 12/04/21 16:36 Atorvastatin Calcium (Atorvastatin 40 Mg Tab) 80 mg PO HS [facility] Stop: 12/03/21 20:59 Last Admin: 11/05/21 20:07 Dose: 80 mg Documented by: Dextrose (Dextrose 50% 50 Ml Syringe) 25 - 50 ml IV UD PRN; Protocol PRN Reason: Hypoglycemia Protocol Stop: 12/03/21 16:07 Docusate Sodium (Docusate Sodium 100 Mg Cap) 100 mg PO BID [facility] Stop: 12/04/21 20:59 Last Admin: 11/05/21 20:09 Dose: 100 mg Documented by: Ferrous Sulfate (Ferrous Sulfate 325 Mg Tab) 325 mg PO BID [facility] Stop: 12/03/21 20:59 Last Admin: 11/05/21 20:08 Dose: 325 mg Documented by: Finasteride (Finasteride 5 Mg Tab) 5 mg PO HS [facility] Stop: 12/03/21 20:59 Last Admin: 11/05/21 20:09 Dose: 5 mg Documented by: Furosemide (Furosemide Inj 20 Mg/2 Ml Vial) 60 mg IV 0600,1200,1800 [facility] Stop: 12/05/21 05:59 Last Admin: 11/06/21 05:30 Dose: 60 mg Documented by: Glucagon (Glucagon For Inj 1 Mg Vial) 1 mg SQ UD PRN; Protocol PRN Reason: Hypoglycemia Protocol Stop: 12/03/21 16:07 Glucose (Glucose 10 Tabs/Tube) 4 - 8 tabs PO UD PRN; Protocol PRN Reason: Hypoglycemia Protocol Stop: 12/03/21 16:07 Glucose (Glucose 40% Gel 15 Gm Tube) 15 - 30 gm PO UD PRN; Protocol PRN Reason: Hypoglycemia Protocol Stop: 12/03/21 16:07 Hydralazine HCl (Hydralazine Tab 50 Mg Tab) 50 mg PO BID [facility] Stop: 12/04/21 20:59 Last Admin: 11/05/21 20:08 Dose: 50 mg Documented by: Pantoprazole Sodium 40 mg/ (Syringe) 10 mls @ 5 mls/min IV BID [facility] Stop: 12/03/21 20:59 Last Admin: 11/05/21 20:05 Dose: 5 mls/min Documented by: Ceftriaxone Sodium 2,000 mg/ (Dextrose) 70 mls @ 140 mls/hr IV Q24H [facility] Stop: 11/13/21 16:59 Last Infusion: 11/05/21 18:33 Dose: Infused Documented by: Insulin Aspart (Insulin Aspart Per Unit) 0 units SC ACHS [facility] Stop: 12/03/21 16:29 Last Admin: 11/05/21 20:16 Dose: 1 units Documented by: Insulin Glargine (Insulin Glargine Solostar 100 Units/Ml 3 Ml Pen) 15 units SC HS [facility] Stop: 12/03/21 20:59 Last Admin: 11/05/21 20:13 Dose: 15 units Documented by: Lidocaine (L[facility]ocaine 5% 1 Patch) [facility] Stop: 12/04/21 16:44 Last Admin: 11/05/21 08:25 Dose: Not Given Documented by: Magnesium Hydroxide (Magnesium Hydroxide Susp 30 Ml Udc) 30 ml PO DAILY PRN PRN Reason: Constipation Stop: 12/04/21 14:28 Last Admin: 11/05/21 12:36 Dose: 30 ml Documented by: Magnesium Oxide (Magnesium Oxide 400 Mg Tab) 400 mg PO [facility] Stop: 12/04/21 08:59 Last Admin: 11/05/21 08:25 Dose: 400 mg Documented by: Metoprolol Succinate (Metoprolol Succ 50mg Ext Rel Tab) 150 mg PO BID [facility] Stop: 12/03/21 20:59 Last Admin: 11/05/21 20:06 Dose: 150 mg Documented by: Miscellaneous (Carbohydrates For Hypoglycemia ) 15 - 30 gm PO UD PRN PRN Reason: Hypoglycemia Protocol Stop: 12/03/21 16:07 Miscellaneous (Remove Lidoderm Patch) 1 ea N/A DAILY@2100 [facility] Stop: 12/04/21 20:59 Last Admin: 11/05/21 20:07 Dose: 1 ea Documented by: Neomycin/Polymyxin/Bacitracin (Neomycin/Polymyx/Bacitr Oint 15 Gm Tube) 1 appln EXT BID [facility] Stop: 12/03/21 21:29 Last Admin: 11/05/21 20:06 Dose: 1 appln Documented by: Ondansetron HCl (Ondansetron Inj 2 Mg/Ml 2 Ml Vial) 4 mg IV Q4H PRN PRN Reason: Nausea And Vomiting Stop: 12/03/21 16:07 Ropinirole HCl (Ropinirole Hcl 2 Mg Tablet) 2 mg PO [facility] Stop: 12/03/21 20:59 Last Admin: 11/05/21 20:09 Dose: 2 mg Documented by: Sennosides (Senna 8.6 Mg Tab) 8.6 mg PO QAM [facility] Stop: 12/04/21 10:44 Last Admin: 11/05/21 08:24 Dose: 8.6 mg Documented by: Tamsulosin HCl (Tamsulosin Hcl 0.4 Mg Cap) 0.4 mg PO QDL [facility] Stop: 12/04/21 11:29 Last Admin: 11/05/21 12:28 Dose: 0.4 mg Documented by: Tramadol HCl (Tramadol Hcl 50 Mg Tablet) 50 mg PO Q6H PRN PRN Reason: Pain Stop: 12/03/21 16:07 Last Admin: 11/06/21 03:09 Dose: 50 mg Documented by:
[2021-11-06] MEDS: INSULIN ASPART PER UNIT SC SCH ×4 (08:39→20:37)
[2021-11-06] MEDS: PANTOprazole 40 MG in SYRINGE 0 ML IV SCH ×2 (08:54→20:46)
[2021-11-06] MEDS: NEOMYCIN/POLYMYX/BACITR OINT 15 GM TUBE EXT SCH ×2 (08:54→20:36)
[2021-11-06] MEDS: METOPROLOL SUCC 50MG EXT REL TAB PO SCH ×2 (08:56→20:35)
[2021-11-06] MEDS: FERROUS SULFATE 325 MG TAB PO SCH ×2 (08:56→20:35)
[2021-11-06] MEDS: SENNA 8.6 MG TAB PO SCH ×2 (08:56→20:35)
[2021-11-06] MEDS: DOCUSATE SODIUM 100 MG CAP PO SCH ×2 (08:56→20:35)
[2021-11-06] MEDS: hydrALAZINE TAB 50 MG TAB PO SCH ×2 (08:56→20:35)
[2021-11-06] MEDS: MAGNESIUM OXIDE 400 MG TAB PO SCH (08:56)
[2021-11-06] MEDS: LIDOCAINE 5% 1 PATCH TD SCH (09:20)
[2021-11-06] MEDS: MAGNESIUM HYDROXIDE SUSP 30 ML UDC PO SCH (11:02)
[2021-11-06] MEDS: TAMSULOSIN HCL 0.4 MG CAP PO SCH (12:41)
[2021-11-06] MEDS: cefTRIAXone SODIUM 2,000 MG in DEXTROSE 5% 50 ML IV SCH (17:38)
[2021-11-06 17:58] LABS: Hematocrit (blood only) 26.6 % (42-52); Hemoglobin 8.1 g/dL (14.0-18.0)
[2021-11-06] MEDS: FINASTERIDE 5 MG TAB PO SCH (20:35)
[2021-11-06] MEDS: rOPINIRole HCL 2 MG TABLET PO SCH (20:35)
[2021-11-06] MEDS: ATORVASTATIN 40 MG TAB PO SCH (20:35)
[2021-11-06] MEDS: INSULIN GLARGINE SOLOSTAR 100 UNITS/ML 3 ML PEN SC SCH (20:36)
[2021-11-07] MEDS: FUROSEMIDE INJ 20 MG/2 ML VIAL IV SCH ×3 (05:54→17:15)
[2021-11-07 07:22] LABS: Hematocrit (blood only) 25.6 % (42-52); Hemoglobin 7.7 g/dL (14.0-18.0); Mean Corpuscular Hemoglobin 28.8 pg (25-34); Mean Corpuscular Hgb Conc 30.1 g/dL (32-36); Mean Corpuscular Volume 95.9 fL (80-100); Mean Platelet Volume 10.3 fL (7.4-10.4); Platelet Count 210 K/uL (130-400); RDW Standard Deviation 74.2 fL (36.4-46.3); Red Blood Count 2.67 M/uL (4.7-6.1); White Blood Count 7.07 K/uL (4.8-10.8)
--- NOTE | 2021-11-07 07:30 | Hospitalist Progress Note ---
Date of Service November 07, 2021 Assessment & Plan (1) Anemia: Plan: -Admitted to [facility] with telemetry -Concern for GI source of bleeding with dark tarry stools x1 month, patient reports that he is also on an iron tablet -Guaiac is positive -Hemoglobin is 7.0 on admission, was 6.4 as an outpatient day prior admission -Consulted GI for possible EGD, holding coumadin, reversing with Vit K (as INR was supratherapeutic) -Started on Protonix drip, will switch to bolus daily to eliminate fluids in the setting of volume overload, most likely is a slow bleed as the patient reports being constipated, with last BM AM of admission which was formed. 11/04 -patient seen by GI, no plan for endoscopy at this time After being transfused, hemoglobin is 8.0 Patient continues to complain of constipation, had a bowel movement today 11/05 - current Hgb 7.6, cont. to monitor H&H 11/06 Hgb 7.3, repeat Hgb 8.1 11/07 Hgb 7.7 will restart coumdin 1.25 mg pt takes 1.25 mg M, F, 2.5 mg other days Pt is having BMs, denies any blood in the stool or any abnormal stools (2) CKD (chronic kidney disease): (3) History of kidney cancer: Plan: - follows with oncology in [place] -- Currently is not on chemotherapy, previously was suggested he go on hospice/palliative care, appears that he has changed his mind in the past few months, also today wants full code. - -Consult nephrology, discussed with Dr. Armenta via [place] text -IV Lasix 60 mg x 1 after blood transfusion on admission - Now on lasix IV 60 TID , diuresing well - nephrology to help determine when to resume torsemide - Follow am Cr/BUN On admission elevated at 4.12 and nephrology aware - Previous notes indicated the pt would not be a good candidate for dialysis, may need to readdress goals of care during this hospitalization Nephrology following - planning to switch to torsemide 100 mg daily (4) UTI (urinary tract infection): Plan: - Noted UA from outpt results appears to be infected, check UA and follow urine culture here - Cont. ceftriaxone IV - No wbc, afebrile - Pt admits to burning with urination - ucultx - mixed kraig, repeat UA (5) DM type 2 (diabetes mellitus, type 2): Plan: - Continue HS long acting - Cont ISS with accuchecks achs - Last a1c was around 7, improved compared to previously (6) Atrial fibrillation: Plan: - coumadin on hold on admission, monitor INR daily, received Vit K on admission -in regards to possible GI bleed - Currently rate controlled - Follow with Dr. Landon as outpt - coumadin restarted DVT ppx: - teds, scds, held coumadin in the setting of possible GI bleed CODE: Full Dispo: From home, likely to remain in the hospital x 1-2 days Admission and Anticipated Discharge Date Admission Date: November 03, 2021 Subjective Patient seen in follow-up of anemia, DUNG on CKD, in the setting of renal cell carcinoma with metastases, A. fib on Coumadin Patient is currently walking around the room, family present Denies fevers, chills, chest pain, shortness of breath Reports feeling better (weakness, lower back pain improved) Review of Systems Review of Systems: All systems reviewed & are unremarkable except as noted in Subjective Physical Exam Physical Exam: General: awake, alert, no apparent distress Head: Normocephalic, atraumatic ENT: PERRL, EOMI, no pharyngeal exudate, mucous membranes moist Chest: on room air, diminished breath sounds at bases Cardiac: irregularly irregular, rates in low 100s, no murmur, no JVD, normal peripheral pulses, good capillary refill Abdominal: NABS x 4 quadrants, soft, nondistended, nontender to palpation, no rebound or guarding Extremities: + 2 pitting peripheral edema + Right knee abrasion, no erythema, calves nontender to palpation Psych: Normal mood and affect Neuro: AAO x 3, strength intact bilaterally and rated 5/5, no motor deficits, speech is clear, no peripheral sensory deficits Results & Data Results & Data ([facility]) Vital Signs (Past 12 Hours) Vital Signs Temp Pulse Pulse Resp BP Pulse Ox 11/07/21 03:56 36.7 C 89 18 123/63 96 11/07/21 00:00 96 H 11/06/21 23:21 36.7 C 77 18 144/65 H 96 Laboratory Results Hgb 8.1 5/15 PM Hgb 7.7 5/16 AM Medications Administered Current Inpatient Medications Acetaminophen (Acetaminophen 325 Mg Tab) 650 mg PO Q4H PRN PRN Reason: Pain Stop: 12/04/21 16:36 Last Admin: 11/07/21 20:41 Dose: 650 mg Documented by: Atorvastatin Calcium (Atorvastatin 40 Mg Tab) 80 mg PO HS [facility] Stop: 12/03/21 20:59 Last Admin: 11/07/21 20:34 Dose: 80 mg Documented by: Dextrose (Dextrose 50% 50 Ml Syringe) 25 - 50 ml IV UD PRN; Protocol PRN Reason: Hypoglycemia Protocol Stop: 12/03/21 16:07 Docusate Sodium (Docusate Sodium 100 Mg Cap) 100 mg PO BID [facility] Stop: 12/04/21 20:59 Last Admin: 11/07/21 20:32 Dose: 100 mg Documented by: Ferrous Sulfate (Ferrous Sulfate 325 Mg Tab) 325 mg PO BID [facility] Stop: 12/03/21 20:59 Last Admin: 11/07/21 20:33 Dose: 325 mg Documented by: Finasteride (Finasteride 5 Mg Tab) 5 mg PO HS [facility] Stop: 12/03/21 20:59 Last Admin: 11/07/21 20:32 Dose: 5 mg Documented by: Furosemide (Furosemide Inj 20 Mg/2 Ml Vial) 60 mg IV 0600,1200,1800 [facility] Stop: 12/05/21 05:59 Last Admin: 11/08/21 05:29 Dose: 60 mg Documented by: Glucagon (Glucagon For Inj 1 Mg Vial) 1 mg SQ UD PRN; Protocol PRN Reason: Hypoglycemia Protocol Stop: 12/03/21 16:07 Glucose (Glucose 10 Tabs/Tube) 4 - 8 tabs PO UD PRN; Protocol PRN Reason: Hypoglycemia Protocol Stop: 12/03/21 16:07 Glucose (Glucose 40% Gel 15 Gm Tube) 15 - 30 gm PO UD PRN; Protocol PRN Reason: Hypoglycemia Protocol Stop: 12/03/21 16:07 Hydralazine HCl (Hydralazine Tab 50 Mg Tab) 50 mg PO BID [facility] Stop: 12/04/21 20:59 Last Admin: 11/07/21 20:34 Dose: 50 mg Documented by: Pantoprazole Sodium 40 mg/ (Syringe) 10 mls @ 5 mls/min IV BID [facility] Stop: 12/03/21 20:59 Last Admin: 11/07/21 20:38 Dose: 5 mls/min Documented by: Ceftriaxone Sodium 2,000 mg/ (Dextrose) 70 mls @ 140 mls/hr IV Q24H [facility] Stop: 11/13/21 16:59 Last Infusion: 11/07/21 18:05 Dose: Infused Documented by: Insulin Aspart (Insulin Aspart Per Unit) 0 units SC ACHS [facility] Stop: 12/03/21 16:29 Last Admin: 11/07/21 22:11 Dose: 1 units Documented by: Insulin Glargine (Insulin Glargine Solostar 100 Units/Ml 3 Ml Pen) 15 units SC HS [facility] Stop: 12/03/21 20:59 Last Admin: 11/07/21 22:12 Dose: 15 units Documented by: Lidocaine (Lidocaine 5% 1 Patch) 1 patch TD QAM [facility] Stop: 12/04/21 16:44 Last Admin: 11/07/21 09:47 Dose: Not Given Documented by: Magnesium Hydroxide (Magnesium Hydroxide Susp 30 Ml Udc) 30 ml PO DAILY [facility] Stop: 12/06/21 09:59 Last Admin: 11/07/21 09:46 Dose: 30 ml Documented by: Magnesium Oxide (Magnesium Oxide 400 Mg Tab) 400 mg PO QAM [facility] Stop: 12/04/21 08:59 Last Admin: 11/07/21 09:46 Dose: 400 mg Documented by: Metoprolol Succinate (Metoprolol Succ 50mg Ext Rel Tab) 150 mg PO BID [facility] Stop: 12/03/21 20:59 Last Admin: 11/07/21 20:36 Dose: 150 mg Documented by: Miscellaneous (Carbohydrates For Hypoglycemia ) 15 - 30 gm PO UD PRN PRN Reason: Hypoglycemia Protocol Stop: 12/03/21 16:07 Miscellaneous (Remove Lidoderm Patch) 1 ea N/A DAILY@2100 [facility] Stop: 12/04/21 20:59 Last Admin: 11/07/21 20:40 Dose: 1 ea Documented by: Neomycin/Polymyxin/Bacitracin (Neomycin/Polymyx/Bacitr Oint 15 Gm Tube) 1 appln EXT BID [facility] Stop: 12/03/21 21:29 Last Admin: 11/07/21 20:37 Dose: 1 appln Documented by: Ondansetron HCl (Ondansetron Inj 2 Mg/Ml 2 Ml Vial) 4 mg IV Q4H PRN PRN Reason: Nausea And Vomiting Stop: 12/03/21 16:07 Ropinirole HCl (Ropinirole Hcl 2 Mg Tablet) 2 mg PO HS [facility] Stop: 12/03/21 20:59 Last Admin: 11/07/21 20:39 Dose: 2 mg Documented by: Sennosides (Senna 8.6 Mg Tab) 8.6 mg PO BID [facility] Stop: 12/06/21 20:59 Last Admin: 11/07/21 20:38 Dose: 8.6 mg Documented by: Tamsulosin HCl (Tamsulosin Hcl 0.4 Mg Cap) 0.4 mg PO QDL [facility] Stop: 12/04/21 11:29 Last Admin: 11/07/21 12:56 Dose: 0.4 mg Documented by: Tramadol HCl (Tramadol Hcl 50 Mg Tablet) 50 mg PO Q6H PRN PRN Reason: Pain Stop: 12/03/21 16:07 Last Admin: 11/08/21 05:41 Dose: 50 mg Documented by: Warfarin Sodium (Warfarin Sod 1.25 Mg Tab) 1.25 mg PO DAILY@1600 [facility] Stop: 12/07/21 18:54 Last Admin: 11/07/21 20:30 Dose: 1.25 mg Documented by:
[2021-11-07 07:49] LABS: BUN Creatinine Ratio 27.5 (10-20); Calcium 8.6 mg/dl (8.5-10.1); Creatinine Clr Calc Pharmacy 18.3 ml/min; Est GFR (African American) 15.3 ml/min; Est GFR (Non-African American) 13.2 ml/min; Magnesium 2.2 mg/dl (1.7-2.4)
[2021-11-07] MEDS: INSULIN ASPART PER UNIT SC SCH ×4 (08:05→22:11)
[2021-11-07] MEDS: MAGNESIUM HYDROXIDE SUSP 30 ML UDC PO SCH (09:46)
[2021-11-07] MEDS: hydrALAZINE TAB 50 MG TAB PO SCH ×2 (09:46→20:34)
[2021-11-07] MEDS: MAGNESIUM OXIDE 400 MG TAB PO SCH (09:46)
[2021-11-07] MEDS: PANTOprazole 40 MG in SYRINGE 0 ML IV SCH ×2 (09:46→20:38)
[2021-11-07] MEDS: FERROUS SULFATE 325 MG TAB PO SCH ×2 (09:46→20:33)
[2021-11-07] MEDS: SENNA 8.6 MG TAB PO SCH ×2 (09:46→20:38)
[2021-11-07] MEDS: DOCUSATE SODIUM 100 MG CAP PO SCH ×2 (09:46→20:32)
[2021-11-07] MEDS: LIDOCAINE 5% 1 PATCH TD SCH (09:47)
[2021-11-07] MEDS: METOPROLOL SUCC 50MG EXT REL TAB PO SCH ×2 (09:47→20:36)
[2021-11-07] MEDS: NEOMYCIN/POLYMYX/BACITR OINT 15 GM TUBE EXT SCH ×2 (09:47→20:37)
--- NOTE | 2021-11-07 12:15 | Nephrology Progress Note ---
Date of Service November 07, 2021 Assessment & Plan Admission and Anticipated Discharge Date Admission Date: November 03, 2021 Subjective Assessment & Plan (1) Acute on chronic renal failure: Plan: progressive CKD this year as renal cell cancer has progressed > creatinine had increased to new baseline of 3.3 in July and September 2021. Then on check in October creatinine was up to 4.2 in setting of marked volume overload. -diurese aggressively >consideration of dialysis is challenging here given his challenging cancer care > was for f/u visit w/ oncology on November 23 > consider contacting them; no indication for urgent dialysis but cannot rule out need this admission -Bump in Scr - but his LYtes are wnl and he is diuresing well. - daily bmp -continue to avoid nephrotoxins (2) Volume overload: Plan: with his history of tyrosine kinase inhibitor use, pt is at risk for nephrotic syndrome/proteinuria; however only 214 mg proteinuria at OP visit 11/02 now that he's off TKI (was more in 1900 mg daily range last fall) (3) Symptomatic anemia: Plan: -improved after pRBC; monitoring and w/u per primary service; not a candidate for erythropoeitin d/t cancer dx (4) History of kidney cancer: Plan: -agree w/ ongoing discussion of hospice; consider approaching his OP oncologist if not done Rec: 1 Can switch to torsemide 100 daily at this point. 2 I will talk with is oncologist regarding plan fo care for cancer. If cancer untreatable then there is no Dialysis possible,. 3. He is now at CKD stage 4 to 5 with sig fluid overload. No change since admission with creat or bun. Subjective Patient seen in follow-up of anemia, DUNG on CKD, in the setting of renal cell carcinoma with metastases, A. fib on Coumadin Comfortable, less eedema, in no acute distress. walking in hallways. Review of Systems Review of Systems: All systems reviewed & are unremarkable except as noted in Subjective Physical Exam Physical Exam: Constitutional:L well developed and well nourished Eyes: EOM intact bilater ally ENMT: Ears: no external ear abnormality N ose: no external n ose abnormality M outh: + dry oral m ucous membranes Neck: no nuchal rigidity Respiratory: normal respiratory effort Auscultat ion: + diminished lung sounds Cardiovascular:L Rate/Rhythm: regul ar rhythm and + ta chycardic Extremi ties: + edema (3+B LE) Gastrointestinal ( Abdomen): Inspection/Auscult ation: normal brien l sounds Percussi on/Palpation: abdo men soft; abdomen nontender Musculoskeletal: Extremities: stren gth 5/5 throughout . 1+ bilateral lauren ma Skin: no rashes, warm an d dry Neurologic: white, fluent speech , no tremor Psychiatric: Orientation: [facility] x 3 Results & Data ([facility]) Vital Signs (Past 12 Hours) Vital Signs Temp Pulse Resp BP Pulse Ox 11/07/21 11:21 37.0 C 92 H 16 130/75 98 11/07/21 08:48 36.7 C 95 H 16 116/66 95 11/07/21 03:56 36.7 C 89 18 123/63 96
[2021-11-07] MEDS: TAMSULOSIN HCL 0.4 MG CAP PO SCH (12:56)
[2021-11-07] MEDS: cefTRIAXone SODIUM 2,000 MG in DEXTROSE 5% 50 ML IV SCH (17:15)
[2021-11-07] MEDS ORDERED: WARFARIN SOD 1.25 MG TAB PO SCH (18:55)
[2021-11-07] MEDS: traMADol HCL 50 MG TABLET PO PRN (19:04)
[2021-11-07] MEDS: FINASTERIDE 5 MG TAB PO SCH (20:32)
[2021-11-07] MEDS: ATORVASTATIN 40 MG TAB PO SCH (20:34)
[2021-11-07] MEDS: rOPINIRole HCL 2 MG TABLET PO SCH (20:39)
[2021-11-07] MEDS: INSULIN GLARGINE SOLOSTAR 100 UNITS/ML 3 ML PEN SC SCH (22:12)
[2021-11-08] MEDS: FUROSEMIDE INJ 20 MG/2 ML VIAL IV SCH (05:29)
[2021-11-08] MEDS: traMADol HCL 50 MG TABLET PO PRN (05:41)
[2021-11-08 06:16] LABS: Hematocrit (blood only) 28.3 % (42-52); Hemoglobin 8.6 g/dL (14.0-18.0)
[2021-11-08 06:23] LABS: INR 1.3 (0.9-1.1); Prothrombin Time 13.6 Seconds (9.0-12.0)
[2021-11-08 06:42] LABS: BUN Creatinine Ratio 27.3 (10-20); Calcium 9.1 mg/dl (8.5-10.1); Est GFR (African American) 14.1 ml/min; Est GFR (Non-African American) 12.2 ml/min; Magnesium 2.7 mg/dl (1.7-2.4); Potassium 4.5 mmol/L (3.5-5.1)
--- NOTE | 2021-11-08 08:18 | Hospitalist Progress Note ---
Date of Service November 08, 2021 Assessment & Plan (1) Anemia: Plan: -Admitted to [facility] with telemetry -Concern for GI source of bleeding with dark tarry stools x1 month, patient reports that he is also on an iron tablet -Guaiac is positive -Hemoglobin is 7.0 on admission, was 6.4 as an outpatient day prior admission -Consulted GI for possible EGD, holding coumadin, reversing with Vit K (as INR was supratherapeutic) -Started on Protonix drip, will switch to bolus daily to eliminate fluids in the setting of volume overload, most likely is a slow bleed as the patient reports being constipated, with last BM AM of admission which was formed. 11/04 -patient seen by GI, no plan for endoscopy at this time After being transfused, hemoglobin is 8.0 Patient continues to complain of constipation, had a bowel movement today 11/05 - current Hgb 7.6, cont. to monitor H&H 11/06 Hgb 7.3, repeat Hgb 8.1 11/07 Hgb 7.7 11/08 Hgb 8.6 restarted coumdin on 11/07, at 1.25 mg pt takes 1.25 mg M, F, 2.5 mg other days will need close follow up of INR Pt is having BMs, denies any blood in the stool or any abnormal stools Discussed with GI, plan for outpatient follow-up/outpatient endoscopy (2) CKD (chronic kidney disease): (3) History of kidney cancer: Plan: - follows with oncology in [place] -- Currently is not on chemotherapy, previously was suggested he go on hospice/palliative care, appears that he has changed his mind in the past few months, also today wants full code. - -Consult nephrology, discussed with Dr. Armenta via [place] text -IV Lasix 60 mg x 1 after blood transfusion on admission - On lasix IV 60 TID , diuresing well - nephrology to help determine when to resume torsemide - Follow am Cr/BUN On admission elevated at 4.12 and nephrology aware - Previous notes indicated the pt would not be a good candidate for dialysis, may need to readdress goals of care during this hospitalization Nephrology following - switch to torsemide 100 mg daily (11/08) (4) UTI (urinary tract infection): Plan: - Noted UA from outpt results appears to be infected, check UA and follow urine culture here - Cont. ceftriaxone IV - No wbc, afebrile - Pt admits to burning with urination - ucultx - mixed kraig, repeat UA (5) DM type 2 (diabetes mellitus, type 2): Plan: - Continue HS long acting - Cont ISS with accuchecks achs - Last a1c was around 7, improved compared to previously (6) Atrial fibrillation: Plan: - coumadin on hold on admission, monitor INR daily, received Vit K on admission -in regards to possible GI bleed - Currently rate controlled - Follow with Dr. Lnadon as outpt - coumadin restarted (11/07) DVT ppx: - teds, scds, held coumadin in the setting of possible GI bleed CODE: Full Dispo: From home, likely to remain in the hospital x 1-2 days Admission and Anticipated Discharge Date Admission Date: November 03, 2021 Subjective Patient seen in follow-up of anemia, DUNG on CKD, in the setting of renal cell carcinoma with metastases, A. fib on Coumadin Patient is currently walking around the room, in NAD Denies fevers, chills, chest pain, shortness of breath Reports feeling better (weakness, lower back pain improved) Review of Systems Review of Systems: All systems reviewed & are unremarkable except as noted in Subjective Physical Exam Physical Exam: General: awake, alert, no apparent distress Head: Normocephalic, atraumatic ENT: PERRL, EOMI, no pharyngeal exudate, mucous membranes moist Chest: on room air, diminished breath sounds at bases Cardiac: irregularly irregular, rates in low 100s, no murmur, no JVD, normal peripheral pulses, good capillary refill Abdominal: NABS x 4 quadrants, soft, nondistended, nontender to palpation, no rebound or guarding Extremities: + 2 pitting peripheral edema (improved) + Right knee abrasion, no erythema, calves nontender to palpation Psych: Normal mood and affect Neuro: AAO x 3, strength intact bilaterally and rated 5/5, no motor deficits, speech is clear, no peripheral sensory deficits Results & Data Results & Data ([facility]) Vital Signs (Past 12 Hours) Vital Signs Temp Pulse Pulse Resp BP Pulse Ox 11/08/21 07:52 36.6 C 98 H 18 125/60 95 11/08/21 04:04 36.7 C 94 H 18 133/55 L 96 11/07/21 23:48 36.8 C 96 H 18 122/74 95 11/07/21 22:30 97 H Laboratory Results 11/08/21 11/08/21 11/08/21 Range/Units 07:25 05:54 05:54 Hgb 8.6 L (14.0-18.0) g/dL Hct 28.3 L (42-52) % PT 13.6 H (9.0-12.0) Seconds INR 1.3 H (0.9-1.1) Sodium (136-145) mmol/L Potassium (3.5-5.1) mmol/L Chloride (98-107) mmol/L Carbon Dioxide (21-32) mmol/L Anion Gap (3-11) BUN (6-23) mg/dl Creatinine (0.6-1.4) mg/dl Est Cr Clr Drug Dosing ml/min Est GFR ( Amer) ml/min Est GFR (Non-Af Amer) ml/min BUN/Creatinine Ratio (10-20) Glucose (70-99(Fasting)) mg/dl POC Glucose 165 H (70-99) mg/dl Calcium (8.5-10.1) mg/dl Magnesium (1.7-2.4) mg/dl 11/08/21 11/07/21 11/07/21 Range/Units 05:54 20:38 16:14 Hgb (14.0-18.0) g/dL Hct (42-52) % PT (9.0-12.0) Seconds INR (0.9-1.1) Sodium 136 (136-145) mmol/L Potassium 4.5 (3.5-5.1) mmol/L Chloride 100 (98-107) mmol/L Carbon Dioxide 24 (21-32) mmol/L Anion Gap 12 H (3-11) BUN 123 H (6-23) mg/dl Creatinine 4.51 H* (0.6-1.4) mg/dl Est Cr Clr Drug Dosing 17.0 ml/min Est GFR ( Amer) 14.1 ml/min Est GFR (Non-Af Amer) 12.2 ml/min BUN/Creatinine Ratio 27.3 H (10-20) Glucose 138 H (70-99(Fasting)) mg/dl POC Glucose 186 H 130 H (70-99) mg/dl Calcium 9.1 (8.5-10.1) mg/dl Magnesium 2.7 H (1.7-2.4) mg/dl 11/07/21 Range/Units 11:17 Hgb (14.0-18.0) g/dL Hct (42-52) % PT (9.0-12.0) Seconds INR (0.9-1.1) Sodium (136-145) mmol/L Potassium (3.5-5.1) mmol/L Chloride (98-107) mmol/L Carbon Dioxide (21-32) mmol/L Anion Gap (3-11) BUN (6-23) mg/dl Creatinine (0.6-1.4) mg/dl Est Cr Clr Drug Dosing ml/min Est GFR ( Amer) ml/min Est GFR (Non-Af Amer) ml/min BUN/Creatinine Ratio (10-20) Glucose (70-99(Fasting)) mg/dl POC Glucose 204 H (70-99) mg/dl Calcium (8.5-10.1) mg/dl Magnesium (1.7-2.4) mg/dl Medications Administered Current Inpatient Medications Acetaminophen (Acetaminophen 325 Mg Tab) 650 mg PO Q4H PRN PRN Reason: Pain Stop: 12/04/21 16:36 Last Admin: 11/07/21 20:41 Dose: 650 mg Documented by: Atorvastatin Calcium (Atorvastatin 40 Mg Tab) 80 mg PO [facility] Stop: 12/03/21 20:59 Last Admin: 11/07/21 20:34 Dose: 80 mg Documented by: Dextrose (Dextrose 50% 50 Ml Syringe) 25 - 50 ml IV UD PRN; Protocol PRN Reason: Hypoglycemia Protocol Stop: 12/03/21 16:07 Docusate Sodium (Docusate Sodium 100 Mg Cap) 100 mg PO BID [facility] Stop: 12/04/21 20:59 Last Admin: 11/07/21 20:32 Dose: 100 mg Documented by: Ferrous Sulfate (Ferrous Sulfate 325 Mg Tab) 325 mg PO BID [facility] Stop: 12/03/21 20:59 Last Admin: 11/07/21 20:33 Dose: 325 mg Documented by: Finasteride (Finasteride 5 Mg Tab) 5 mg PO HS [facility] Stop: 12/03/21 20:59 Last Admin: 11/07/21 20:32 Dose: 5 mg Documented by: Furosemide (Furosemide Inj 20 Mg/2 Ml Vial) 60 mg IV 0600,1200,1800 [facility] Stop: 12/05/21 05:59 Last Admin: 11/08/21 05:29 Dose: 60 mg Documented by: Glucagon (Glucagon For Inj 1 Mg Vial) 1 mg SQ UD PRN; Protocol PRN Reason: Hypoglycemia Protocol Stop: 12/03/21 16:07 Glucose (Glucose 10 Tabs/Tube) 4 - 8 tabs PO UD PRN; Protocol PRN Reason: Hypoglycemia Protocol Stop: 12/03/21 16:07 Glucose (Glucose 40% Gel 15 Gm Tube) 15 - 30 gm PO UD PRN; Protocol PRN Reason: Hypoglycemia Protocol Stop: 12/03/21 16:07 Hydralazine HCl (Hydralazine Tab 50 Mg Tab) 50 mg PO BID [facility] Stop: 12/04/21 20:59 Last Admin: 11/07/21 20:34 Dose: 50 mg Documented by: Pantoprazole Sodium 40 mg/ (Syringe) 10 mls @ 5 mls/min IV BID [facility] Stop: 12/03/21 20:59 Last Admin: 11/07/21 20:38 Dose: 5 mls/min Documented by: Ceftriaxone Sodium 2,000 mg/ (Dextrose) 70 mls @ 140 mls/hr IV Q24H [facility] Stop: 11/13/21 16:59 Last Infusion: 11/07/21 18:05 Dose: Infused Documented by: Insulin Aspart (Insulin Aspart Per Unit) 0 units SC ACHS [facility] Stop: 12/03/21 16:29 Last Admin: 11/07/21 22:11 Dose: 1 units Documented by: Insulin Glargine (Insulin Glargine Solostar 100 Units/Ml 3 Ml Pen) 15 units SC HS [facility] Stop: 12/03/21 20:59 Last Admin: 11/07/21 22:12 Dose: 15 units Documented by: Lidocaine (Lidocaine 5% 1 Patch) 1 patch TD QAM [facility] Stop: 12/04/21 16:44 Last Admin: 11/07/21 09:47 Dose: Not Given Documented by: Magnesium Hydroxide (Magnesium Hydroxide Susp 30 Ml Udc) 30 ml PO DAILY [facility] Stop: 12/06/21 09:59 Last Admin: 11/07/21 09:46 Dose: 30 ml Documented by: Magnesium Oxide (Magnesium Oxide 400 Mg Tab) 400 mg PO QAM [facility] Stop: 12/04/21 08:59 Last Admin: 11/07/21 09:46 Dose: 400 mg Documented by: Metoprolol Succinate (Metoprolol Succ 50mg Ext Rel Tab) 150 mg PO BID [facility] Stop: 12/03/21 20:59 Last Admin: 11/07/21 20:36 Dose: 150 mg Documented by: Miscellaneous (Carbohydrates For Hypoglycemia ) 15 - 30 gm PO UD PRN PRN Reason: Hypoglycemia Protocol Stop: 12/03/21 16:07 Miscellaneous (Remove Lidoderm Patch) 1 ea N/A DAILY@2100 [facility] Stop: 12/04/21 20:59 Last Admin: 11/07/21 20:40 Dose: 1 ea Documented by: Neomycin/Polymyxin/Bacitracin (Neomycin/Polymyx/Bacitr Oint 15 Gm Tube) 1 appln EXT BID [facility] Stop: 12/03/21 21:29 Last Admin: 11/07/21 20:37 Dose: 1 appln Documented by: Ondansetron HCl (Ondansetron Inj 2 Mg/Ml 2 Ml Vial) 4 mg IV Q4H PRN PRN Reason: Nausea And Vomiting Stop: 12/03/21 16:07 Ropinirole HCl (Ropinirole Hcl 2 Mg Tablet) 2 mg PO HS [facility] Stop: 12/03/21 20:59 Last Admin: 11/07/21 20:39 Dose: 2 mg Documented by: Sennosides (Senna 8.6 Mg Tab) 8.6 mg PO BID [facility] Stop: 12/06/21 20:59 Last Admin: 11/07/21 20:38 Dose: 8.6 mg Documented by: Tamsulosin HCl (Tamsulosin Hcl 0.4 Mg Cap) 0.4 mg PO QDL [facility] Stop: 12/04/21 11:29 Last Admin: 11/07/21 12:56 Dose: 0.4 mg Documented by: Tramadol HCl (Tramadol Hcl 50 Mg Tablet) 50 mg PO Q6H PRN PRN Reason: Pain Stop: 12/03/21 16:07 Last Admin: 11/08/21 05:41 Dose: 50 mg Documented by: Warfarin Sodium (Warfarin Sod 1.25 Mg Tab) 1.25 mg PO DAILY@1600 [facility] Stop: 12/07/21 18:54 Last Admin: 11/07/21 20:30 Dose: 1.25 mg Documented by:
[2021-11-08] MEDS ORDERED: TORSEMIDE 100 MG TAB PO SCH (09:00)
[2021-11-08] MEDS: DOCUSATE SODIUM 100 MG CAP PO SCH (09:01)
[2021-11-08] MEDS: MAGNESIUM OXIDE 400 MG TAB PO SCH (09:02)
[2021-11-08] MEDS: METOPROLOL SUCC 50MG EXT REL TAB PO SCH (09:02)
[2021-11-08] MEDS: FERROUS SULFATE 325 MG TAB PO SCH (09:03)
[2021-11-08] MEDS: hydrALAZINE TAB 50 MG TAB PO SCH (09:03)
[2021-11-08] MEDS: LIDOCAINE 5% 1 PATCH TD SCH (09:03)
[2021-11-08] MEDS: NEOMYCIN/POLYMYX/BACITR OINT 15 GM TUBE EXT SCH (09:04)
[2021-11-08] MEDS: PANTOprazole 40 MG in SYRINGE 0 ML IV SCH (09:04)
[2021-11-08] MEDS: SENNA 8.6 MG TAB PO SCH (09:04)
[2021-11-08] MEDS: MAGNESIUM HYDROXIDE SUSP 30 ML UDC PO SCH (09:09)
[2021-11-08] MEDS: INSULIN ASPART PER UNIT SC SCH (09:24)
--- NOTE | 2021-11-08 09:31 | Nephrology Progress Note ---
Date of Service November 08, 2021 Assessment & Plan Admission and Anticipated Discharge Date Admission Date: November 03, 2021 Subjective Assessment & Plan (1) Acute on chronic renal failure: Plan: progressive CKD this year as renal cell cancer has progressed > creatinine had increased to new baseline of 3.3 in July and September 2021. Then on check in October creatinine was up to 4.2 in setting of marked volume overload. -diurese aggressively >consideration of dialysis is challenging here given his challenging cancer care > was for f/u visit w/ oncology on November 23 > consider contacting them; no indication for urgent dialysis but cannot rule out need this admission -Bump in Scr - but his LYtes are wnl and he is diuresing well about 2.5 liters urine per day - daily bmp -continue to avoid nephrotoxins (2) Volume overload: Plan: with his history of tyrosine kinase inhibitor use, pt is at risk for nephrotic syndrome/proteinuria; however only 214 mg proteinuria at OP visit 11/02 now that he's off TKI (was more in 1900 mg daily range last fall) (3) Symptomatic anemia: Plan: -improved after pRBC; monitoring and w/u per primary service; not a candidate for erythropoeitin d/t cancer dx Rec: 1 Can switch to torsemide 100 daily at this point. He can be discharged. May need higher dose of torsemide but can be raised outpt 2 I did talk with his oncologist regarding plan fo care for cancer. Not possible to cure cancer at this time and she did not think we should do dialysis and at this point leaning towards palliative medicine. 3. He is now at CKD stage 5 with sig fluid overload. No change since admission with creat or bun. Subjective Patient seen in follow-up of anemia, DUNG on CKD, in the setting of renal cell carcinoma with metastases, A. fib on Coumadin Comfortable, less edema, in no acute distress. walking in hallways. Review of Systems Review of Systems: All systems reviewed & are unremarkable except as noted in Subjective Physical Exam C Physical Exam: Constitutional:L well developed and well nourished Eyes: EOM intact bilater ally ENMT: Ears: no external ear abnormality N ose: no external n ose abnormality M outh: + dry oral m ucous membranes Neck: no nuchal rigidity Respiratory: normal respiratory effort Auscultat ion: + diminished lung sounds Cardiovascular:L Rate/Rhythm: regul ar rhythm and + ta chycardic Extremi ties: + edema (3+B LE) Gastrointestinal ( Abdomen): Inspection/Auscult ation: normal brien l sounds Percussi on/Palpation: abdo men soft; abdomen nontender Musculoskeletal: Extremities: stren gth 5/5 throughout . 1+ bilateral lauren ma Skin: no rashes, warm an d dry Neurologic: white, fluent speech , no tremor Psych[facility]: [facility] & Data ([facility]) Vital Signs (Past 12 Hours) Vital Signs Temp Pulse Pulse Resp BP Pulse Ox 11/08/21 07:52 36.6 C 98 H 18 125/60 95 11/08/21 04:04 36.7 C 94 H 18 133/55 L 96 11/07/21 23:48 36.8 C 96 H 18 122/74 95 11/07/21 22:30 97 H
--- NOTE | 2021-11-08 11:08 | Discharge Summary ---
Date of Service November 08, 2021 Admission HPI Per Admitting Provider This is a 71-year-old male with PMHx of CKD stage IV with microalbuminuria from DM type II, HTN, bilateral partial nephrectomy status post renal cell carcinoma (left in March 2018, right in June 2018) with metastasis from left to right and mets to pulmonary region involving mediastinal and hilar lymphadenopathy, status post 4 cycles with Ipilimumab and nivolumab, then cabozantinib which was stopped due to diarrhea/tolerability, with subsequent progression, he follows with heme-onc with Dr. Brito and was recently offered a liquid biopsy for NGS, other history includes anemia, thrombocytopenia, proteinuria, A. fib anticoagulated on Coumadin. He was seen by his timber cutter, Dr. Willams yesterday who had increased his torsemide from 60 mg to 100 mgdue to increased volume overload. He took his first dose of 100 mg this morning and did have slightly increased urine output. He admits to having some burning with initiation of urination however denies any hematuria, retention, or increased frequency. UA from yesterday is suspicious for a UTI, will recheck and send culture today and start empirically on ceftriaxone. Patient notes that his bowels have been constipated, and uses mineral oil to move them. He denies any BRBPR, but does admit to some dark tarry stools. He has been taking iron tablet routinely. Patient also notes increased shortness of breath which has progressively gotten worse over the past 3 to 4 weeks. He is denying shortness of breath lying on his left side in bed, but reports increased work of breathing with minimal exertional activities or ADLs. He feels swollen in his feet, legs and abdomen today. He denies any chest pain or heaviness or palpitations or flutter. He has been taking Coumadin as directed for his A. fib and not missed a dose, last took 2.5 mg last evening. INR has been stable Pt was referred to the ER today due to hemoglobin drop to 6.4 on 11/02 by outpatient labs. Today here his hemoglobin is 7.0. Patient is reporting black stools on and off x1 month and due to being on Coumadin concern for GI bleed, INR today is 3.6. Admission Exam Per Admitting Provider General: awake, alert, no apparent distress Head: Normocephalic, atraumatic ENT: PERRL, EOMI, no pharyngeal exudate, mucous membranes moist Chest: on room air, diminished breath sounds at bases Cardiac: irregularly irregular, rates in low 100s, no murmur, no JVD, normal peripheral pulses, good capillary refill Abdominal: NABS x 4 quadrants, soft, nondistended, nontender to palpation, no rebound or guarding Extremities: +2 pitting peripheral edema up above the knee, + Right knee abrasion, no erythema, calfs nontender to palpation Psych: Normal mood and affect Neuro: AAO x 3, strength intact bilaterally and rated 5/5, no motor deficits, speech is clear, no peripheral sensory deficits Principal Diagnosis Acute on chronic anemia Elevated INR Renal cell carcinoma with metastases DUNG on CKD, fluid overload Hx of Afib Discharge Exam General: awake, alert, no apparent distress Head: Normocephalic, atraumatic ENT: PERRL, EOMI, no pharyngeal exudate, mucous membranes moist Chest: on room air, diminished breath sounds at bases Cardiac: irregularly irregular, rates in low 100s, no murmur, no JVD, normal peripheral pulses, good capillary refill Abdominal: NABS x 4 quadrants, soft, nondistended, nontender to palpation, no rebound or guarding Extremities: + 2 pitting peripheral edema (improved) + Right knee abrasion, no erythema, calves nontender to palpation Psych: Normal mood and affect Neuro: AAO x 3, strength intact bilaterally and rated 5/5, no motor deficits, speech is clear, no peripheral sensory deficits Discharge Data Allergies Allergy/AdvReac Type Severity Reaction Status Date / Time No Known Allergies Allergy Mild Verified 07/27/21 08:14 Consultations 11/03/21 13:01 ED Decision to Admit Stat 11/03/21 13:41 Consult Gastroenterology Routine 11/03/21 14:20 Consult Nephrology Routine Hospital Course (1) Anemia: -Admitted to [facility] with telemetry -Concern for GI source of bleeding with dark tarry stools x1 month, patient reports that he is also on an iron tablet -Guaiac is positive -Hemoglobin is 7.0 on admission, was 6.4 as an outpatient day prior admission Concern for GI Bleed due to Warfarin therapy and supratherapeutic INR -Consulted GI for possible EGD, holding coumadin, reversing with Vit K (as INR was supratherapeutic) -Started on Protonix drip, will switch to bolus daily to eliminate fluids in the setting of volume overload, most likely is a slow bleed as the patient reports being constipated, with last BM AM of admission which was formed. 11/04 -patient seen by GI, no plan for endoscopy at this time After being transfused, hemoglobin is 8.0 Patient continues to complain of constipation, had a bowel movement today 11/05 - current Hgb 7.6, cont. to monitor H&H 11/06 Hgb 7.3, repeat Hgb 8.1 11/07 Hgb 7.7 11/08 Hgb 8.6 restarted coumdin on 11/07, at 1.25 mg pt takes 1.25 mg M, F, 2.5 mg other days will need close follow up of INR Pt is having BMs, denies any blood in the stool or any abnormal stools Discussed with GI, plan for outpatient follow-up/outpatient endoscopy (2) CKD (chronic kidney disease): (3) History of kidney cancer: - follows with oncology in [place] -- Currently is not on chemotherapy, previously was suggested he go on hospice/palliative care, appears that he has changed his mind in the past few months, also today wants full code. - -Consult nephrology, discussed with Dr. Armenta via [place] text -IV Lasix 60 mg x 1 after blood transfusion on admission - On lasix IV 60 TID , diuresing well - nephrology to help determine when to resume torsemide - Follow am Cr/BUN On admission elevated at 4.12 and nephrology aware - Previous notes indicated the pt would not be a good candidate for dialysis, may need to readdress goals of care during this hospitalization Nephrology following - switch to torsemide 100 mg daily (11/08) (4) UTI (urinary tract infection): - Noted UA from outpt results appears to be infected, check UA and follow urine culture here - Cont. ceftriaxone IV - No wbc, afebrile - Pt admits to burning with urination - ucultx - mixed kraig, repeat UA (5) DM type 2 (diabetes mellitus, type 2): - Continue HS long acting - Cont ISS with accuchecks achs - Last a1c was around 7, improved compared to previously (6) Atrial fibrillation: - coumadin on hold on admission, monitor INR daily, received Vit K on admission -in regards to possible GI bleed - Currently rate controlled - Follow with Dr. Fernandez as outpt - coumadin restarted (11/07) Total Time Total Time Spent Total Time Spent (In Minutes): 40 Discharge Plan Discharge Items Patient Disposition: Home - Self-Care Reason For Visit: ANEMIC Discharge Diagnosis: Acute on chronic anemia Elevated INR Renal cell carcinoma with metastases DUGN on CKD, fluid overload Hx of Afib Activity: Per Instructions section Non-emergency contact: Primary Care Provider, Golf Caddie and Oncologist Call non-emergency contact if: you have any medication questions and your symptoms worsen Follow-up/Referrals: [facility] [Other] (Date & Time 11/10/2021 11:40 AM Provider [facility] [place] [facility] [place] ) Xavi Conde MD [Primary Care Provider] - (Date & Time 11/11/2021 2:00 PM Provider Xavi Conde MD Department [facility] ) Diet: Carb Consistent or DM2, Dialysis Renal and Heart Healthy Fluids: 1500ml (6 cups) Addtl Attending Provider Instructions: Follow-up with your primary care doctor, the appointment was scheduled for you for November 11. Have your INR checked, it is important that your INR is not above recommended level. There is a concern of possible gastrointestinal bleed, and therefore you will be contacted by gastroenterology office for endoscopy. Continue taking torsemide 100 mg daily, this dose may need to be increased in the future. It is important that you follow-up with your physicians oncology, nephrology, cardiology, GI. Pending Studies at Discharge: No Stand-Alone Forms: My [facility] [employer], Smoking Cessation Medications and DC Order Prescriptions: Continued atorvastatin 80 mg tablet 80 mg PO HS RF: 0 tamsulosin 0.4 mg capsule 0.4 mg PO QDL RF: 0 omeprazole 20 mg capsule,delayed release(DR/EC) 20 mg PO QDL RF: 0 hydralazine 50 mg tablet 100 mg PO TID RF: 0 finasteride 5 mg tablet 5 mg PO HS RF: 0 insulin aspart U-100 [Novolog Flexpen U-100 Insulin] 100 unit/mL (3 mL) insul in pen 0 unit subcut .SLIDING SCALE RF: 0 Basaglar KwikPen U-100 Insulin 100 unit/mL (3 mL) insulin pen 30 unit subcut HS RF: 0 ropinirole 1 mg Tablet 2 mg PO HS RF: 0 calcium carbonate [Calcium 600] 600 mg calcium (1,500 mg) Tablet 600 mg PO BID RF: 0 magnesium 200 mg Tablet 400 mg PO QAM RF: 0 coQ10 (ubiquinol) 200 mg Capsule 400 mg PO QAM RF: 0 warfarin 2.5 mg Tablet See Rx Instructions .ROUTE .COMPLEX RF: 0 ferrous sulfate [iron] 325 mg (65 mg iron) tablet 325 mg PO BID RF: 0 metoprolol succinate 100 mg tablet extended release 24 hr 150 mg PO BID RF: 0 tramadol 50 mg tablet 50 mg PO Q6H PRN (Reason: Pain) RF: 0 zinc sulfate 50 mg zinc (220 mg) tablet 50 mg PO QAM RF: 0 torsemide 100 mg tablet 100 mg PO QAM RF: 0 ascorbic acid (vitamin C) [Vitamin C] 500 mg Tablet 500 mg PO BID RF: 0 cholecalciferol (vitamin D3) [Vitamin D3] 25 mcg (1,000 unit) tablet 1,000 unit PO QAM RF: 0 Discharge Orders: Discharge Order (Routine); Ordered 11/08/21 Ordered By: Isaías Angeles Admission Data Admit Date/Time: 11/03/21 13:41 Attending Provider: Isaías Angeles Admit Provider: Lucian Hooper Primary Care Provider: Xavi Conde Other Providers: Cornelia Randle ; Lucian Hooper ; Meri Poole Other Interventions: Discharge Summary Assessment (RN) Last Done: 11/08/21 10:41
--- NOTE | 2021-11-11 09:27 | Coding Query ---
CODING QUERY To promote full compliance with coding requirements relating to patient care, provider participation is requested in all cases of hims coder uncertainty. Please assist us with the question(s) below: Coding Question(s): Pt admitted with melena. transfused for blood loss anemia. Pt home med- Coumadin. DS documented " concern for INR, Coumadin held" . Supratherapeutic INR- Vit K reversed . Please document, if known or suspected, the etiology of the melena. Thanks for your help! QUE Ashley [facility] Physician's Response(s): Per GI note, no melena. No endoscopy done as inpatient either. Pt w/ chronic anemia due to chronic kidney disease,and multifactorial. INR was supratherapeutic on admission which was reversed for concern for GI bleed. Principal Diagnosis: "that condition established after study, to be chiefly responsible for occasioning the admission of the patient to the hospital for care." Co-Existing Principal Diagnosis: "when two or more diagnoses equally meet the criteria for principal diagnosis as determined by the circumstances of admission, diagnostic work up, and/or therapy provided, and the Alphabetic Index, Tabular List, or another coding guideline does not provide sequencing direction, any one of the diagnoses may be sequenced first." "When the physician has documented what appears to be a current diagnosis in the body of the record, but has not included the diagnosis in the final diagnostic statement, the physician should be asked whether the diagnosis should be added." (Source Coding Clinic 2 QTR90. p3-4) [id number]
== END 2021-11-08 13:12 | disposition home or self-care (01) ==
LOC: ED 10:34 → 2E 13:41 → INTOOBSV 13:41 → SUATTDRO 13:41 → 2E 14:55